=== PATIENT | female | born 1930 | race Caucasian/White ===

== ENCOUNTER 2018-12-04 10:11 | Inpatient (IN) | payer MEDICARE ==
[~2018-12-04] VITALS: Ht 167.6 cm; Wt 134.7 kg
[2018-12-04 10:11] VITALS: BP 165/84
[~2018-12-04 10:11] MED LIST: BAYER ASPIRIN325 MG PO; FUROSEMIDE40 MG PO; HYDRODIURIL25 MG PO; Synthroid,Lev150 MCG PO; ZESTRIL,PRINIVI10 MG PO
[2018-12-04 10:59] LABS: BASO # 0.1 10*3/uL (0.0-0.1); BASO % 0.7 % (0.0-1.0); EOS # 0.2 10*3/uL (0.0-0.4); EOS % 1.7 % (1.0-4.0); HEMATOCRIT 40.6 % (37.0-47.0); HEMOGLOBIN 12.4 g/dl (12.0-16.0); LYMPH # 0.8 10*3/uL (1.3-4.4); LYMPH % 8.9 % (27.0-41.0); MEAN CELL VOLUME 97.8 fl (81.0-99.0); MEAN CORPUSCULAR HGB 29.9 pg (27.0-31.0); MEAN CORPUSCULAR HGB CONC 30.5 g/dl (33.0-37.0); MEAN PLATELET VOLUME 9.4 fl (9.6-12.3); MONO # 0.6 10*3/uL (0.1-1.0); MONO % 6.7 % (3.0-9.0); NEUT # 7.3 10*3/uL (2.3-7.9); NEUT % 81.4 % (47.0-73.0); PLATELET COUNT AUTOMATED 202 10*3/uL (130-400); RED BLOOD COUNT 4.15 10*6/uL (4.10-5.10); RED CELL DISTRI WIDTH 15.8 % (0-14.5)
[2018-12-04 11:10] LABS: ACT PARTIAL THROMBO TIME 28.7 SECONDS (20.0-32.1); INTERNATIONAL NORM RATIO 1.2 (2.0-3.5)
[2018-12-04 11:16] LABS: ALBUMIN 3.1 gm/dl (3.1-4.5); ALKALINE PHOSPHATASE 61 U/L (45-117); BUN 17 mg/dl (7-24); CHLORIDE 103 mmol/L (98-107); CREATININE 0.81 mg/dL (0.55-1.02); POTASSIUM 3.8 mmol/L (3.5-5.1); SGOT/AST 12 IU/L (3-35); SGPT/ALT 16 U/L (12-78); SODIUM 138 mmol/L (136-145); TOTAL PROTEIN 7.2 gm/dL (6.4-8.2)
[2018-12-04 11:18] LABS: TROPONIN I < 0.015 ng/ml (<0.045)
[2018-12-04 12:11] VITALS: BP 106/44
--- NOTE | 2018-12-04 12:25 | NUR ---
PT RESTING IN BED WITH EYES CLOSED. IN NO ACUTE DISTRESS
--- NOTE | 2018-12-04 13:53 | NUR ---
CRITICAL LAB: [place] OF 2.2. DR ARNETT NOTIFIED
[2018-12-04 14:12] VITALS: BP 128/86
--- NOTE | 2018-12-04 16:00 | NUR ---
PT UP AND DOWN TO BEDSIDE COMMODE. OXYGEN IN USE. CALL LIGHT IN REACH. SEE SHIFT ASSESSMENT.
[2018-12-04 20:00] VITALS: BP 105/72
--- NOTE | 2018-12-04 20:17 | NUR ---
PATIENT SITTING ON SIDE OF BED. ASSISTED TO PUT LEG UP IN BED D/T UNABLE TO DO SO ON HER OWN. MEDICATED WITH NORCO FOR COMPLAINTS OF EAR PAIN. NO SIGNS OR SYMPTOMS OF DISTRESS AT THIS TIME. RESPIRATION REGULAR AND NON-LABORED ON ROOM AIR. USES BEDSIDE COMMODE WITH ASSIST. PATIENT BECOMES SHORT OF BREATH WITH EXERTION. VITAL SIGNS STABLE. WILL CONTINUE TO MONITOR. CALL LIGHT IN REACH.
[2018-12-05] VITALS: BP 143/52
[2018-12-05 06:33] LABS: BASO # 0.1 10*3/uL (0.0-0.1); BASO % 0.9 % (0.0-1.0); EOS # 0.3 10*3/uL (0.0-0.4); HEMATOCRIT 42.8 % (37.0-47.0); HEMOGLOBIN 12.8 g/dl (12.0-16.0); LYMPH # 2.2 10*3/uL (1.3-4.4); MEAN CELL VOLUME 96.6 fl (81.0-99.0); MEAN CORPUSCULAR HGB 28.9 pg (27.0-31.0); MEAN CORPUSCULAR HGB CONC 29.9 g/dl (33.0-37.0); MEAN PLATELET VOLUME 9.4 fl (9.6-12.3); MONO # 0.7 10*3/uL (0.1-1.0); MONO % 8.1 % (3.0-9.0); NEUT # 4.8 10*3/uL (2.3-7.9); NEUT % 59.1 % (47.0-73.0); PLATELET COUNT AUTOMATED 208 10*3/uL (130-400); RED BLOOD COUNT 4.43 10*6/uL (4.10-5.10); RED CELL DISTRI WIDTH 15.7 % (0-14.5); WHITE BLOOD COUNT 8.2 10*3/uL (4.8-10.8)
[2018-12-05 06:46] LABS: ALBUMIN 3.1 gm/dl (3.1-4.5); BUN 19 mg/dl (7-24); CHLORIDE 101 mmol/L (98-107); CHOLESTEROL 125 mg/dL (<200); CREATININE 0.86 mg/dL (0.55-1.02); PHOSPHOROUS 3.7 mg/dL (2.5-4.9); POTASSIUM 3.5 mmol/L (3.5-5.1); SGOT/AST 13 IU/L (3-35); SGPT/ALT 14 U/L (12-78); SODIUM 141 mmol/L (136-145); TRIGLYCERIDES 66 mg/dl (<150); VLDL CHOLESTEROL 13 mg/dL (6-40)
[2018-12-05 06:53] LABS: ALKALINE PHOSPHATASE 57 U/L (45-117); FREE T4 1.11 ng/dl (0.76-1.46); HDL CHOLESTEROL 58 mg/dl (40-60); LDL CHOLESTEROL 54 mg/dL (9-159); TOTAL PROTEIN 7.1 gm/dL (6.4-8.2)
[2018-12-05 07:42] LABS: VITAMIN D, 25-HYDROXY 25.1 ng/mL (30-100)
[2018-12-05 08:00] VITALS: BP 110/56
--- NOTE | 2018-12-05 08:28 | NUR ---
CALLED DR. HAMILTON AWARE OF CONSULT. HE WILL SEE HER LATER, FULL LIQUID DIET.
--- NOTE | 2018-12-05 08:35 | NUR ---
PT RESTING IN BED. RESP-EASY AND REGULAR. OXYGEN IN USE. NO C/O AT THIS TIME. CALL LIGHT IN REACH. SEE SHIFT ASSESSMENT.
--- NOTE | 2018-12-05 08:40 | NUR ---
IV started right forearm with #22 angiocath after 1 attempts. The IV site was prepped with Chloraprep. Heparin lock attached. Sterile dressing applied. Patient tolerated precedure well. Procedure performed according to [facility] policy & procedure. CHEPE EVANS
--- NOTE | 2018-12-05 09:05 | NUR ---
POLI FARMER IN TO SEE PT.
[2018-12-05 12:00] VITALS: BP 112/65
--- NOTE | 2018-12-05 12:23 | NUR ---
PHYSICAL THERAPY Physical therapy evaluation completed, 5E. Full details to follow. moderate complexity determined after evaluation/chart review, [address]. PT to work on strength, gait, transfers, bed mobility, balance and safety. Recommending SNF or HH at discharge based on Pt progress. Thank you Ana Zazueta, PT, DPT
--- NOTE | 2018-12-05 12:52 | NUR ---
DR. HAMILTON IN TO SEE PT. EGD FOR MONDAY
--- NOTE | 2018-12-05 13:10 | NUR ---
PT C/O NOT BEING ABLE TO MOVE HER BOWELS. MEDICATED WITH MIRALAX PER DR. HAMILTON ORDER, SEE EMAR. CALL LIGHT IN REACH.
--- NOTE | 2018-12-05 13:22 | NUR ---
Kayak Maker in to talk to patient. Patient states lives at HOME with ALONE. There are NO steps in the home. Physician: QUINTIN [facility] [place] [facility] Patient's level of ADLs: INDEPENDENT Patient has working utilities: YES DME: [facility] Follow-up physician's appointment after d/c: WILL BE MADE BY HOSPITALIST NURSE DIRECTOR ON DISCHARGE Does patient want to access PORTAL?: NO Discharge plan PT LIVES AT HOME ALONE AND IS MOSTLY INDEPENDENT IN CARE. PT IS REQUESTING [facility] ON DISCHARGE. WILL OBTAIN ORDER AND SEND REFERRAL. NO OTHER NEEDS PER PT AT THIS TIME. WILL CONTINUES TO FOLLOW. WILL HAVE A RIDE HOME PER PT. . YOLA DUNBAR
--- NOTE | 2018-12-05 14:55 | NUR ---
Occupational Therapy evaluation completed on 5 with full eval to follow. Precautions include obesity, ww use, unsteady inconsistantly (PT for tx),low complexity level 09144. Recommend d/c to home upon d/c and Home health OT for home safety assessment in the home. D/C OT referral at this time. Thank you. Sarah Edwards OTR/l
[2018-12-05 16:00] VITALS: BP 108/57
--- NOTE | 2018-12-05 16:00 | NUR ---
PT RESTING IN BED. RESP-EASY AND REGULAR. OXYGEN IN USE. NO C/O AT THIS TIME. CALL LIGHT IN REACH. SEE SHIFT ASSESSMENT.
--- NOTE | 2018-12-05 18:50 | NUR ---
Time: 1849 A 89 year old FEMALE admitted to 5E under services of ELADIO EDMONDS DO, Pt. arrived via bed from ER. Chief complaint: UTI. DEEPIKA MCKEON
--- NOTE | 2018-12-05 19:47 | NUR ---
PATIENT MEDICATED WITH NORCO FOR COMPLAINTS OF EAR PAIN. SITTING ON SIDE OF BED CONVERSING WITH ROOMMATE AT THIS TIME. RESPIRATIONS REGULAR AND NON-LABORED ON 2L N/C. GETS UP TO BEDSIDE COMMODE PER SELF. NEEDS HELP GETTING LEGS BACK INTO BED. WILL CONTINUE TO MONITOR. CALL LIGHT IN REACH.
[2018-12-05 20:00] VITALS: BP 120/86
--- NOTE | 2018-12-05 21:57 | NUR ---
PATIENT COMPLAINING OF RIGHT SIDED CHEST PAIN. B/P 113/47 ON LEG. UNABLE TO OBTAIN A MANUAL ON ARM. DR. HOUSE IN TO SEE PATIENT. NEW ORDER FOR TROPONIN, EKG AND CHEST X-RAY. WILL CONTINUE TO MONITOR.
[2018-12-06] VITALS: BP 121/65
--- NOTE | 2018-12-06 08:12 | NUR ---
PHYSICAL THERAPY Doctors in visiting with patient at this time. Will check back later. AMEENA COLIN BIOMEDICAL SERVICE ENGINEER
[2018-12-06 12:00] VITALS: BP 132/94
--- NOTE | 2018-12-06 12:48 | NUR ---
PT WILL BE DISCHARGED TO HOME WITH [facility]. NO OTHER NEEDS AT THIS TIME. WILL CONTINUE TO FOLLOW.
--- NOTE | 2018-12-06 13:01 | NUR ---
Nursing screen received and Occupational Therapy referral received. Thank you. Sarah Edwards OTR/l
--- NOTE | 2018-12-06 15:08 | NUR ---
PHYSICAL THERAPY Patient presented to therapy in supine with head of bed elevated and bed alarm activated. Patient gives informed consent for treatment. Patient was identified by name and on wristband. Patient performed supine to sitting at EOB transfer with SBA. Patient sat on EOB without assistance. Patient performed sit to stand transfer from EOB with MIN A X 1. Patient performed ambulation with Wh Walker and Close Supervision 50' x 2 with seated rest after the 1st 50'. Patient SIT TO STAND from low chair with SBA using hands to push off of chair armrests. Patient performed TUG TEST in 36 seconds with use of UEs to push off of chair. Patient performed 30 second sit to stand test with results recorded as 1st attempt) 6 Xs sit to stands in 30 seconds with use of UEs to push off of armrests of chair. 2nd attempt) 5 Xs sit to stands in 30 seconds , also with use of UEs to push off of armrests of chair. Patient transferred back to supine in bed with SBA. Patient was NOT able to move herself up to head of bed, so she transferred supine to sit and sit to stand again with SBA. Patient side-stepped up to head of bed with HEAD BUCKER and then transferred stand to sit to supine in bed with SBA. Patient was left in supine with head of bed elevated, call light within reach, and bed alarm activated. Patient was 1:1 with this ENVIRONMENTAL HEALTH INSPECTOR for 20 minutes total. AMEENA COLIN ENVIRONMENTAL HEALTH INSPECTOR
[2018-12-06 16:00] VITALS: BP 105/70
--- NOTE | 2018-12-06 19:39 | NUR ---
PATIENT MEDICATED WITH PRN NORCO PER ORDER FOR C/O 08/15 PAIN TO HER RIGHT EAR AND JAW. WILL MONITOR FOR EFFECTIVENESS
--- NOTE | 2018-12-06 19:50 | NUR ---
PATIENT ASSISTED TO CHAIR. RESPIRATIONS EVEN AND UNLABORED. NO OTHER COMPLAINTS AT THIS TIME.
[2018-12-06 20:00] VITALS: BP 104/78
--- NOTE | 2018-12-06 20:50 | NUR ---
SPOKE TO DR. CARRILLO ABOUT PATIENT BEING MEDICATED WITH NORCO BUT PATIENT STILL C/O SEVERE PAIN IN HER RIGHT EAR AN HOUR LATER.
--- NOTE | 2018-12-06 21:32 | NUR ---
PATIENT MEDICATED WITH PO TORADOL PER ORDER FOR C/O SEVERE RIGHT EAR PAIN. WILL MONITOR FOR EFFECTIVENESS. CALL LIGHT WITHIN REACH.
--- NOTE | 2018-12-06 22:00 | NUR ---
PER PATIENT PRN PO TORADOL HELPED WITH HER PAIN.
--- NOTE | 2018-12-06 23:42 | NUR ---
PATIENT MEDICATED WITH PRN PO NORCO PER ORDER FOR C/O 5/10 PAIN IN HER RIGHT EAR AND RIGHT SIDE OF HER FACE. CALL LIGHT WITHIN REACH. WILL MONITOR FOR EFFECTIVENESS.
[2018-12-07] VITALS (9 sets, daily range): BP systolic 85–150; BP diastolic 40–82
--- NOTE | 2018-12-07 00:30 | NUR ---
PER PATIENT PRN NORCO EFFECTIVE PER PATIENT.
--- NOTE | 2018-12-07 01:42 | NUR ---
24 HR chart check completed.
--- NOTE | 2018-12-07 05:52 | NUR ---
ATTEMPTED TO CALL RESIDENT ABOUT PATIENT FEELING LIGHT HEADED LIKE SHE IS GOING TO PASS OUT. BP 84/50. WILL TRY AGAIN.
--- NOTE | 2018-12-07 06:00 | NUR ---
DR. HOUSE ON FLOOR TO SEE PATIENT. 500 ML IV FLUID BOLUS ORDERED THEN NS @ 100 ML/HR.
--- NOTE | 2018-12-07 06:32 | NUR ---
PATIENT STATED SHE IS STARTING TO FEEL BETTER. CALL LIGHT WITHIN REACH.
[2018-12-07 06:50] LABS: CREATININE 1.18 mg/dL (0.55-1.02)
[2018-12-07 07:00] LABS: BASO % 0.5 % (0.0-1.0); EOS # 0.2 10*3/uL (0.0-0.4); HEMATOCRIT 41.1 % (37.0-47.0); HEMOGLOBIN 12.8 g/dl (12.0-16.0); LYMPH # 2.1 10*3/uL (1.3-4.4); LYMPH % 26.7 % (27.0-41.0); MEAN CELL VOLUME 95.1 fl (81.0-99.0); MEAN CORPUSCULAR HGB 29.6 pg (27.0-31.0); MEAN CORPUSCULAR HGB CONC 31.1 g/dl (33.0-37.0); MEAN PLATELET VOLUME 9.7 fl (9.6-12.3); MONO # 0.6 10*3/uL (0.1-1.0); MONO % 8.3 % (3.0-9.0); NEUT # 4.6 10*3/uL (2.3-7.9); NEUT % 60.5 % (47.0-73.0); PLATELET COUNT AUTOMATED 217 10*3/uL (130-400); RED BLOOD COUNT 4.32 10*6/uL (4.10-5.10); RED CELL DISTRI WIDTH 15.4 % (0-14.5); WHITE BLOOD COUNT 7.7 10*3/uL (4.8-10.8)
--- NOTE | 2018-12-07 10:30 | NUR ---
10:00 AM MEDSA TO BE GIVEN AT A LATER TIME, NPO AT PRESENT.
--- NOTE | 2018-12-07 12:10 | NUR ---
[facility]ERR[facility].
--- NOTE | 2018-12-07 15:19 | NUR ---
AMERICA received call from patients niece Camelia Francisco. She provided WATER RESOURCES PROJECT MANAGER with Patient code. She had concerns with the patient going home with insulin. WATER RESOURCES PROJECT MANAGER spoke with Portia who stated she did not think the patient would be going home with insulin. WATER RESOURCES PROJECT MANAGER spoke with estate agent Luna about the concern. Luna reached out to Jaylene Rios who stated the patient would not be discharged with insulin. WATER RESOURCES PROJECT MANAGER attempted to reach out to the patients niece there is no number in chart. WATER RESOURCES PROJECT MANAGER spoke with Portia about not being able to reach her. -AMERICA Alejo
--- NOTE | 2018-12-07 16:05 | NUR ---
PHYSICAL THERAPY CO-SIGN I approve of the Physical Therapy notes written above. Ana Zazueta, PT, DPT
--- NOTE | 2018-12-07 19:45 | NUR ---
PATIENT MEDICATED WITH PRN NORCO PER REQUEST FOR C/O 10/10 PAIN IN HER RIGHT EAR. WILL MONITOR FOR EFFECTIVENESS.
--- NOTE | 2018-12-07 20:20 | NUR ---
PER PATIENT PRN NORCO EFFECTIVE.
[2018-12-08] VITALS: BP 114/62
--- NOTE | 2018-12-08 00:50 | NUR ---
PATIENT ASLEEP IN RECLINING CHAIR. RESPIRATIONS EVEN AND UNLABORED. CALL LIGHT WITHIN REACH.
--- NOTE | 2018-12-08 01:46 | NUR ---
24 HR chart check completed.
--- NOTE | 2018-12-08 03:40 | NUR ---
PATIENT ASSISTED TO BEDSIDE COMMODE. HR 120-130S WHILE AMBULATING. PATIENT ASSISTED BACK TO BED AND ONCE SITTING HR RETURNED TO 90S. NO OTHER COMPLAINTS AT THIS TIME. CALL LIGHT WITHIN REACH.
--- NOTE | 2018-12-08 06:35 | NUR ---
PATIENT ASSISTED TO BEDSIDE COMMODE AND BACK TO BED. PATIENT MEDICATED WITH PRN NORCO FOR 4/10 PAIN TO HER RIGHT EAR/FACE. WILL MONITOR FOR EFFECTIVENESS.
--- NOTE | 2018-12-08 07:28 | NUR ---
PATIENT MEDICATED WITH PRN ZOFRAN FOR NAUSEA. WILL MONITOR FOR EFFECTIVENESS.
[2018-12-08 08:00] VITALS: BP 106/67
[2018-12-08 08:31] LABS: ALKALINE PHOSPHATASE 111 U/L (45-117); BUN 25 mg/dl (7-24); CHLORIDE 98 mmol/L (98-107); CREATININE 0.85 mg/dL (0.55-1.02); POTASSIUM 3.7 mmol/L (3.5-5.1); SGOT/AST 313 IU/L (3-35); SGPT/ALT 262 U/L (12-78); SODIUM 138 mmol/L (136-145); TOTAL PROTEIN 7.2 gm/dL (6.4-8.2)
--- NOTE | 2018-12-08 09:14 | NUR ---
HELD LISINOPRIL THIS AM FOR BP 106/67. PATIENT FOR CT ABDOMEN D/T ELEVATED LIVER ENZYMES, PER ELISA FARMER.
--- NOTE | 2018-12-08 10:25 | NUR ---
PATIENT REPORTS LIGHT-HEADEDNESS, SHAKINESS, AND ABDOMINAL PAIN RATED 6/10 ON PAIN SCALE. O2 2L NC NOT SECURELY ATTACHED TO SOURCE. CT ABDOMEN IS ORDERED FOR THIS MORNING. PATIENT DENIES NAUSEA, STATES HAD EPISODE OF NAUSEA EARLIER THIS MORNING, BUT THIS HAS NOT HAPPENED AGAIN SINCE RECEIVING ZOFRAN IV AT 0730.
[2018-12-08 12:00] VITALS: BP 93/53
--- NOTE | 2018-12-08 12:44 | NUR ---
PHYSICAL THERAPY Patient up "furniture" walking once DRY TRANSFER MAN entered room. DRY TRANSFER MAN educated patient on importance of use with FWW and assistance prior to transferring onto bedside commode. Transfer training: Pt performed STS/SPT transfer with use of FWW and SBA to/from bedside commode. Multiple sit<>stand transfers performed from various surfaces (bed, recliner) requiring SBA. Patient benefits from cues for pacing, obstacle/spatial awareness and safety with walker proximity/management during transfers. Patient exhibits impulsiveness with walker and tends to push walker out of way prior to sitting on surfaces. Pt performed gait training with use of FWW and SBA/S, as well as assistance for manipulation of portable O2 tank- for strength, endurance and balance ~120'x1, incorporating 180 degree directional changes- with emphasis on environmental safety and breathing techniques- pt on 2L continous O2 Via NC. Patient provided cues for safety with walker management/proximity and pacing. Pt performed standing B LE ther-ex, for strength, endurance and balance with 2xUE support on FWW and SBA- marches, hip ext/flex, heel raises x 10 reps. Intermittent rest breaks provided. Cues and supervision for technique and progression of exercises. Patient voiced no c/o's this date. Patient seated in bedside chair with call light within reach at session end. Leda Whitlock PTA.
--- NOTE | 2018-12-08 13:36 | NUR ---
DR. HAMILTON NOTIFIED OF CT ABDOMEN RESULT FROM TODAY, OBTAINED ORDER FOR CBC, AMYLASE, LIPASE CALL RESULT.
--- NOTE | 2018-12-08 13:46 | NUR ---
MEDICATED WITH PRN PO NORCO AND IV ZOFRAN FOR ABDOMINAL PAIN AND NAUSEA.
[2018-12-08 13:58] LABS: BASO # 0.1 10*3/uL (0.0-0.1); BASO % 0.7 % (0.0-1.0); EOS # 0.2 10*3/uL (0.0-0.4); EOS % 2.8 % (1.0-4.0); HEMATOCRIT 42.5 % (37.0-47.0); HEMOGLOBIN 13.1 g/dl (12.0-16.0); LYMPH % 13.5 % (27.0-41.0); MEAN CELL VOLUME 96.8 fl (81.0-99.0); MEAN CORPUSCULAR HGB 29.8 pg (27.0-31.0); MEAN CORPUSCULAR HGB CONC 30.8 g/dl (33.0-37.0); MEAN PLATELET VOLUME 9.4 fl (9.6-12.3); MONO # 0.6 10*3/uL (0.1-1.0); MONO % 8.6 % (3.0-9.0); NEUT # 5.3 10*3/uL (2.3-7.9); NEUT % 73.7 % (47.0-73.0); PLATELET COUNT AUTOMATED 211 10*3/uL (130-400); RED BLOOD COUNT 4.39 10*6/uL (4.10-5.10); RED CELL DISTRI WIDTH 15.7 % (0-14.5); WHITE BLOOD COUNT 7.2 10*3/uL (4.8-10.8)
[2018-12-08 14:13] LABS: LIPASE 45 U/L (73-393)
--- NOTE | 2018-12-08 14:51 | NUR ---
STAT BLOODWORK RESULTS CALLED TO DR. HAMILTON, OBTAINED ORDER FOR CBC AND LACTIC ACID IN THE MORNING, CALL RESULTS.
[2018-12-08 16:00] VITALS: BP 85/46
--- NOTE | 2018-12-08 16:16 | NUR ---
DR. PRESSLEY NOTIFIED OF PATIENT BP 82/40 AND THEN 85/46 WITH DIFFERENT BP CUFF. PATIENT WAS DROWSY AND O2 2L NC WAS OFF, POX 90% ROOM AIR. WAS PLACED BACK ON 2L NC, DR. PRESSLEY ORDERED ABG, THEN IN TO SEE PATIENT. PER PATIENT SHE IS FEELING BETTER AT PRESENT TIME, NAUSEA AND ABDOMINAL PAIN HAS SUBSIDED, LAST HAD THESE SYMPTOMS ABOUT AN HOUR AGO, HAS HAD INTERMITTENT PERIODS OF LIGHT-HEADEDNESS WHICH IMPROVES WITH CLOSING HER EYES. PER PATIENT NORCO AND ZOFRAN WERE EFFECTIVE EARLIER. RESPIRATORY THERAPIST IS DRAWING ABG'S.
[2018-12-08 16:22] LABS: ABG BASE EXCESS 8.1 mmol/L (-2.0-2.0); ABG HCO3 33.8 mmol/l (22-26); ARTERIAL BLOOD GAS PCO2 50.3 mmHg (35-45); ARTERIAL BLOOD GAS PH 7.436 (7.35-7.45); ARTERIAL BLOOD GAS PO2 82.4 mmHg (80-90)
--- NOTE | 2018-12-08 19:10 | NUR ---
ARRIVED ON SHIFT, INTRODUCED TO PATIENT, BEDSIDE REPORT RECEIVED, NO NEEDS VOICED AT THIS TIME. WHITE BOARD UPDATED.
[2018-12-08 20:00] VITALS: BP 97/66
--- NOTE | 2018-12-08 20:30 | NUR ---
24 HR chart check completed.
[2018-12-09] VITALS: BP 89/56
--- NOTE | 2018-12-09 02:00 | NUR ---
Patient sleeping. Respirations relaxed and easy. Siderails up X 2. [place] on, BED IN LOW POSITION, CALL LIGHT WITHIN REACH. CINDY LOWERY
[2018-12-09 06:14] LABS: BASO # 0.1 10*3/uL (0.0-0.1); EOS # 0.2 10*3/uL (0.0-0.4); EOS % 3.4 % (1.0-4.0); HEMATOCRIT 43.7 % (37.0-47.0); HEMOGLOBIN 13.1 g/dl (12.0-16.0); LYMPH # 1.7 10*3/uL (1.3-4.4); LYMPH % 24.1 % (27.0-41.0); MEAN CELL VOLUME 97.1 fl (81.0-99.0); MEAN CORPUSCULAR HGB 29.1 pg (27.0-31.0); MEAN PLATELET VOLUME 9.7 fl (9.6-12.3); MONO # 0.6 10*3/uL (0.1-1.0); MONO % 8.5 % (3.0-9.0); NEUT # 4.4 10*3/uL (2.3-7.9); NEUT % 62.3 % (47.0-73.0); PLATELET COUNT AUTOMATED 220 10*3/uL (130-400); RED CELL DISTRI WIDTH 15.8 % (0-14.5)
[2018-12-09 06:35] LABS: ALBUMIN 3.2 gm/dl (3.1-4.5); BILIRUBIN, DIRECT 0.4 mg/dL (0.0-0.2); TOTAL PROTEIN 7.5 gm/dL (6.4-8.2)
--- NOTE | 2018-12-09 06:59 | NUR ---
CALL PLACED TO DR. HAMILTON PER IMSTRUCTIONS REVIEWED CBC AND LACTIC ACID LEVEL WELL HIS FINDINGS ON 12/07/2018 ORDER RECEIVED FOR BLAND DIET.
[2018-12-09 08:00] VITALS: BP 101/61
[2018-12-09 12:00] VITALS: BP 93/46
--- NOTE | 2018-12-09 14:58 | NUR ---
MEDICATED WITH PRN IV ZOFRAN FOR NAUSEA.
[2018-12-09 16:00] VITALS: BP 99/69
--- NOTE | 2018-12-09 17:15 | NUR ---
PATIENT STATES FEELING BETTER, LESS NAUSEATED.
--- NOTE | 2018-12-09 19:10 | NUR ---
ARRIVED ON SHIFT, PATIENT SITTING IN RECLINER, REOPORT RECEIVED, NO NEEDS VOICED AT THIS TIME
[2018-12-09 20:00] VITALS: BP 125/74
--- NOTE | 2018-12-09 22:37 | NUR ---
24 HR chart check completed.
[2018-12-10] VITALS (7 sets, daily range): BP systolic 82–128; BP diastolic 42–76
--- NOTE | 2018-12-10 04:23 | NUR ---
Patient sleeping. Respirations relaxed and easy. PATIENT SLEEPING IN RECLINER, CALL LIGHT WITHIN REACH. CINDY LOWERY
[2018-12-10 07:25] LABS: BASO # 0.1 10*3/uL (0.0-0.1); BASO % 0.8 % (0.0-1.0); EOS # 0.3 10*3/uL (0.0-0.4); EOS % 3.3 % (1.0-4.0); HEMATOCRIT 41.8 % (37.0-47.0); HEMOGLOBIN 12.7 g/dl (12.0-16.0); LYMPH # 2.2 10*3/uL (1.3-4.4); LYMPH % 25.6 % (27.0-41.0); MEAN CELL VOLUME 97.2 fl (81.0-99.0); MEAN CORPUSCULAR HGB 29.5 pg (27.0-31.0); MEAN CORPUSCULAR HGB CONC 30.4 g/dl (33.0-37.0); MEAN PLATELET VOLUME 9.5 fl (9.6-12.3); MONO # 0.8 10*3/uL (0.1-1.0); MONO % 9.5 % (3.0-9.0); NEUT # 5.2 10*3/uL (2.3-7.9); NEUT % 60.1 % (47.0-73.0); PLATELET COUNT AUTOMATED 190 10*3/uL (130-400); RED CELL DISTRI WIDTH 15.4 % (0-14.5); WHITE BLOOD COUNT 8.6 10*3/uL (4.8-10.8)
[2018-12-10 07:43] LABS: ALBUMIN 3.2 gm/dl (3.1-4.5); ALKALINE PHOSPHATASE 90 U/L (45-117); BUN 22 mg/dl (7-24); CHLORIDE 98 mmol/L (98-107); CREATININE 0.86 mg/dL (0.55-1.02); POTASSIUM 3.3 mmol/L (3.5-5.1); SGOT/AST 69 IU/L (3-35); SGPT/ALT 141 U/L (12-78); SODIUM 138 mmol/L (136-145); TOTAL PROTEIN 7.4 gm/dL (6.4-8.2)
--- NOTE | 2018-12-10 08:29 | NUR ---
PT UP IN BED. NO DISTRESS NOTED. RESPIRATIONS EASY, REGULAR ON RA. DENIES ANY SOB. DENIES ANY PAIN/DISCOMFORT AT THIS TIME. WILL CONTINUE TO MONITOR. NO VOICED COMPLAINTS. CALL LIGHT WITHIN REACH.
[2018-12-10] MEDS ORDERED: XARE20MG PO (10:52)
[2018-12-10] MEDS ORDERED: VITAMIN D32000 UNI1 PO (10:52)
[2018-12-10] MEDS ORDERED: METOPROLOL SUCC25 M2 PO (10:52)
[2018-12-10] MEDS ORDERED: ZITHROMAX500 MG PO (10:52)
[2018-12-10] MEDS ORDERED: PREDNISONE10 MG PO (10:52)
[2018-12-10] MEDS ORDERED: PANTOPRAZOLE SO40 MG PO (10:52)
[2018-12-10] MEDS ORDERED: CARBAMAZEPINE100 MG PO (10:52)
[2018-12-10] MEDS ORDERED: FUROSEMIDE40 MG PO (10:52)
--- NOTE | 2018-12-10 11:35 | NUR ---
PT C/O BEING LIGHT-HEADED AND DIZZINESS. POLI FARMER NOTIFIED AT THIS TIME. BP 82/42. NEW ORDERS RECEIVED.
--- NOTE | 2018-12-10 11:35 | NUR ---
PT C/O FEELING LIGHT-HEADED AND DIZZY. BP OBTAINED. BP 82/48. POLI FARMER NOTIFIED AT THIS TIME. NEW ORDERS RECEIVED.
[2018-12-10] MEDS ORDERED: LASIX20 MG PO (11:39)
--- NOTE | 2018-12-10 11:45 | NUR ---
CALLED TO [phone] PER PT. REQUEST. PT. STATES SHE IS DIZZY AND LIGHTHEADED. REQUESTED O2. SAT 94 ON R/A. NOTIFIED RN. RN WITH PT. AT BEDSIDE, CHECKING B/P. DISCHARGE IS HELD AT THIS TIME. WILL ASSESS FOR O2 PRIOR TO DISCHARGE.
--- NOTE | 2018-12-10 11:46 | NUR ---
IV BOLUS 500CC INITIATED AT THIS TIME PER ORDER.
--- NOTE | 2018-12-10 12:29 | NUR ---
BP NOW 98/58. WILL CONTINUE TO MONITOR. IV BOLUS MAINTAINED. CALL LIGHT WITHIN REACH.
--- NOTE | 2018-12-10 12:40 | NUR ---
POLI FARMER NOTIFIED REGARDING MOST RECENT BP.
--- NOTE | 2018-12-10 13:05 | NUR ---
PHYSICAL THERAPY Patient seen this pm 1:1 for therapy visit and was sitting up on EOB upon therapist arrival. Patient identified by name / and presented with continuos IV treatment. Patient stated she had just returned from the bathroom prior to IV and did not feel like getting up so soon again. Patient agreed to and performed seated B LE therex, all planes, 2 x 10 reps each to increased LE strength. Patient tolerated all treatment voicing no new c/o's and remained EOB sit with call light, tray table, and telephone. Will continue per POC as tolerated, total treatment time 14 minutes. Emeka Monterroso, DATA WAREHOUSE ANALYST
--- NOTE | 2018-12-10 13:46 | NUR ---
PT STATES SHE WILL RETURN HOME WITH NO NEEDS ON DISCHARGE. WILL CONTINUE TO FOLLOW.
--- NOTE | 2018-12-10 15:36 | NUR ---
PT MEDICATED WITH IV ZOFRAN PER PRN ORDER FOR C/O NAUSEA. WILL MONITOR EFFECTIVENESS.
--- NOTE | 2018-12-10 21:19 | NUR ---
PATIENT MEDICATED WITH NORCO FOR COMPLAINTS OF GENERALIZED PAIN ALL OVER. VITAL SIGNS STABLE. RESPIRATIONS REGULAR AND NON-LABORED. NO SIGNS OR SYMPTOMS OF DISTRESS NOTED. WILL CONTINUE TO MONITOR. CALL LIGHT IN REACH.
--- NOTE | 2018-12-11 01:11 | NUR ---
24 HR chart check completed.
[2018-12-11 01:17] VITALS: BP 115/81
[2018-12-11 07:52] LABS: BASO # 0.1 10*3/uL (0.0-0.1); BASO % 0.7 % (0.0-1.0); EOS # 0.3 10*3/uL (0.0-0.4); EOS % 3.4 % (1.0-4.0); HEMATOCRIT 40.1 % (37.0-47.0); HEMOGLOBIN 12.4 g/dl (12.0-16.0); LYMPH % 23.6 % (27.0-41.0); MEAN CELL VOLUME 96.9 fl (81.0-99.0); MEAN CORPUSCULAR HGB CONC 30.9 g/dl (33.0-37.0); MEAN PLATELET VOLUME 9.4 fl (9.6-12.3); MONO # 0.8 10*3/uL (0.1-1.0); MONO % 9.1 % (3.0-9.0); NEUT # 5.3 10*3/uL (2.3-7.9); NEUT % 62.5 % (47.0-73.0); PLATELET COUNT AUTOMATED 176 10*3/uL (130-400); RED BLOOD COUNT 4.14 10*6/uL (4.10-5.10); RED CELL DISTRI WIDTH 15.6 % (0-14.5); WHITE BLOOD COUNT 8.5 10*3/uL (4.8-10.8)
[2018-12-11 08:00] VITALS: BP 112/80
[2018-12-11 08:07] LABS: ALBUMIN 3.1 gm/dl (3.1-4.5); ALKALINE PHOSPHATASE 82 U/L (45-117); BUN 23 mg/dl (7-24); CHLORIDE 98 mmol/L (98-107); CREATININE 0.83 mg/dL (0.55-1.02); POTASSIUM 3.5 mmol/L (3.5-5.1); SGOT/AST 38 IU/L (3-35); SGPT/ALT 104 U/L (12-78); SODIUM 139 mmol/L (136-145)
--- NOTE | 2018-12-11 08:41 | NUR ---
PHYSICAL THERAPY Abdi nguyen she just came back from a walk with respirtory and would like therapy to come back later in morning. Will check back later. AMEENA COLIN DISTRICT RECRUITER
--- NOTE | 2018-12-11 08:49 | NUR ---
pt was assessed for home oxygen. pt did not qualify pt at rest spo2 96% ra, hr 89, rr 18, b/p 115/81 pt ambulated spo2 94-98% ra pt at rest spo2 98% ra, hr 107, rr 18, b/p 146/109 rn notified and notified
[2018-12-11 12:00] VITALS: BP 117/74
--- NOTE | 2018-12-11 13:55 | NUR ---
Discharge instructions reviewed with patient/family. Patient receptive and verbalizes understanding. Follow-up care arranged. Written instructions given to patient/family. IV site and monitoring coordinator removed. Pt transported to pharmacy via wheelchair. ANTHONY LOPEZ
--- NOTE | 2018-12-12 08:04 | NUR ---
PHYSICAL THERAPY CO-SIGN I approve of the Physical Therapy notes written above. Ana Zazueta, PT, DPT
[2018-12-12] MEDS ORDERED: MIRALAX POWDER17 G1 PO (13:25)
== END 2018-12-11 13:55 | disposition home or self-care (01) | DRG 871 ==
LOC: ED 10:11 → EDHOLD 13:37 → 5E 13:37
PROVIDERS: Emergency Medicine; Internal Medicine; Internal Medicine Gastroenterology; Registered Nurse; Student in an Organized Health Care Education/Training Program; ADMIT Internal Medicine
PROC: 0DB68ZX Excision of Stomach, Via Natural or Artificial Opening Endoscopic, Diagnostic (ICD-10-PCS; principal; 2018-12-07)
DX: A41.9 Sepsis, unspecified organism (principal); I50.33 Acute on chronic diastolic (congestive) heart failure; N17.0 Acute kidney failure with tubular necrosis; E87.2 Acidosis; E44.0 Moderate protein-calorie malnutrition; J98.11 Atelectasis; Z68.42 Body mass index [BMI] 45.0-49.9, adult; R65.20 Severe sepsis without septic shock; M19.90 Unspecified osteoarthritis, unspecified site; Z96.659 Presence of unspecified artificial knee joint; I11.0 Hypertensive heart disease with heart failure; H66.91 Otitis media, unspecified, right ear; G50.0 Trigeminal neuralgia; D72.810 Lymphocytopenia; E03.9 Hypothyroidism, unspecified; E11.65 Type 2 diabetes mellitus with hyperglycemia; I48.21 Permanent atrial fibrillation; E55.9 Vitamin D deficiency, unspecified; R74.0 Nonspecific elevation of levels of transaminase and lactic acid dehydrogenase [LDH]; E66.01 Morbid (severe) obesity due to excess calories; I27.20 Pulmonary hypertension, unspecified; I48.20 Chronic atrial fibrillation, unspecified; I25.10 Atherosclerotic heart disease of native coronary artery without angina pectoris; I08.1 Rheumatic disorders of both mitral and tricuspid valves; K22.2 Esophageal obstruction; K44.9 Diaphragmatic hernia without obstruction or gangrene; K29.70 Gastritis, unspecified, without bleeding; K25.9 Gastric ulcer, unspecified as acute or chronic, without hemorrhage or perforation; I95.9 Hypotension, unspecified; K76.0 Fatty (change of) liver, not elsewhere classified; Z98.49 Cataract extraction status, unspecified eye; Z79.52 Long term (current) use of systemic steroids; Z90.49 Acquired absence of other specified parts of digestive tract; Z88.6 Allergy status to analgesic agent; Z79.82 Long term (current) use of aspirin; Z79.899 Other long term (current) drug therapy; Z82.49 Family history of ischemic heart disease and other diseases of the circulatory system; Z80.8 Family history of malignant neoplasm of other organs or systems

== ENCOUNTER 2018-12-12 10:52 | Emergency (ER) | payer MEDICARE ==
[~2018-12-12] VITALS: Ht 167.6 cm; Wt 87.1 kg
[~2018-12-12 10:52] MED LIST changes: +CARBAMAZEPINE100 MG PO; +LASIX20 MG PO; +METOPROLOL SUCC25 M2 PO; +PANTOPRAZOLE SO40 MG PO; +PREDNISONE10 MG PO; +VITAMIN D32000 UNI1 PO; +XARE20MG PO; +ZITHROMAX500 MG PO
[2018-12-12] MEDS ORDERED: MIRALAX POWDER17 G1 PO (13:25)
== END 2018-12-12 13:27 | disposition home or self-care (01) ==
LOC: ED 10:52
DX: K59.00 Constipation, unspecified (principal); M79.89 Other specified soft tissue disorders; H92.01 Otalgia, right ear; E66.9 Obesity, unspecified; E03.9 Hypothyroidism, unspecified; I48.91 Unspecified atrial fibrillation; I11.0 Hypertensive heart disease with heart failure; I50.9 Heart failure, unspecified; E11.9 Type 2 diabetes mellitus without complications; Z88.5 Allergy status to narcotic agent; Z79.899 Other long term (current) drug therapy; Z79.2 Long term (current) use of antibiotics; Z79.82 Long term (current) use of aspirin; Z90.49 Acquired absence of other specified parts of digestive tract

== ENCOUNTER 2019-03-16 18:38 | Inpatient (IN) | payer MEDICARE ==
[~2019-03-16] VITALS: Ht 167.6 cm; Wt 129.8 kg
[2019-03-16] VITALS (37 sets, daily range): BP systolic 56–176; BP diastolic 11–136
[~2019-03-16 18:38] MED LIST changes: +MIRALAX POWDER17 G1 PO
--- NOTE | 2019-03-16 19:09 | NUR ---
pt anxious and trying to take mask off. will check with provider for medication to calm pt down.
[2019-03-16 19:20] LABS: BASO % 0.4 % (0.0-1.0); EOS # 0.3 10*3/uL (0.0-0.4); EOS % 2.8 % (1.0-4.0); HEMATOCRIT 45.9 % (37.0-47.0); HEMOGLOBIN 14.2 g/dl (12.0-16.0); LYMPH # 1.9 10*3/uL (1.3-4.4); LYMPH % 18.6 % (27.0-41.0); MEAN CELL VOLUME 93.9 fl (81.0-99.0); MEAN CORPUSCULAR HGB CONC 30.9 g/dl (33.0-37.0); MEAN PLATELET VOLUME 9.3 fl (9.6-12.3); MONO # 0.5 10*3/uL (0.1-1.0); NEUT # 7.4 10*3/uL (2.3-7.9); NEUT % 72.7 % (47.0-73.0); PLATELET COUNT AUTOMATED 222 10*3/uL (130-400); RED BLOOD COUNT 4.89 10*6/uL (4.10-5.10); RED CELL DISTRI WIDTH 15.1 % (0-14.5); WHITE BLOOD COUNT 10.2 10*3/uL (4.8-10.8)
[2019-03-16 19:36] LABS: ALBUMIN 3.3 gm/dl (3.1-4.5); ALKALINE PHOSPHATASE 107 U/L (45-117); BUN 13 mg/dl (7-24); CHLORIDE 104 mmol/L (98-107); CREATININE 0.83 mg/dL (0.55-1.02); POTASSIUM 3.9 mmol/L (3.5-5.1); SGOT/AST 22 IU/L (3-35); SGPT/ALT 20 U/L (12-78); SODIUM 138 mmol/L (136-145); TOTAL PROTEIN 7.9 gm/dL (6.4-8.2)
[2019-03-16 19:42] LABS: TROPONIN I < 0.015 ng/ml (<0.045)
--- NOTE | 2019-03-16 19:50 | NUR ---
PT MEDICATED WITH 20MG AMTOMIDATE AT 1948, 100MG SUCCS ALSO GIVEN AT THIS TIME. PT INTUBATED AT 1951. 7.5 ETT 21 AT THE LIP. 99% PULSE OX AFTER INTUBATION. NCO2 POSITIVE. LIPSCOMB CATHETER INSERTED AT 2109, OG TUBE PLACED AT 2149.
--- NOTE | 2019-03-16 19:50 | NUR ---
100MG. SUCCS ADMIN AT THIS TIME
--- NOTE | 2019-03-16 20:13 | NUR ---
PROPOFOL TITRATED TO 10MC/KG/MIN AT THIS TIME FOR RESTLESSNESS
[2019-03-16 20:15] LABS: ABG BASE EXCESS 0.2 mmol/L (-2.0-2.0); ARTERIAL BLOOD GAS PH 7.278 (7.35-7.45)
--- NOTE | 2019-03-16 20:51 | NUR ---
PROPOFOL TITRATED DOWN TO 5MCG/KG/MIN AT THIS TIME FOR BP AND MAP DECREASING.
--- NOTE | 2019-03-16 20:57 | NUR ---
PROPOFOL HELD AT THIS TIME. PT BP 50s/11 MAP, 32. DR NORTH MADE AWARE
--- NOTE | 2019-03-16 21:10 | NUR ---
LIPSCOMB CATHETER INSERTED AT THIS TIME. 16 FR. DRAINED SMALL AMOUT OF YELLOW URINE
--- NOTE | 2019-03-16 21:34 | NUR ---
PROPOFOL RESTARTED AT 2.5MCG/KG/ MIN- PT STARTING TO FIGHT ETT. PT BP 114/81.
--- NOTE | 2019-03-16 21:40 | NUR ---
PROPOFOL TITRATED TO 5MCG/KG/MIN AT THIS TIME FOR PT STILL FIGHTING ETT.
--- NOTE | 2019-03-16 22:10 | NUR ---
PROPOFOL TITRATED TO 7.5 MCG,KG,MIN FOR STILL RESTLESSNESS WITH ETT POST CT
--- NOTE | 2019-03-16 22:15 | NUR ---
A 88, admitted to ICCU, under the services of ERICKSON Silver DO with a diagnosis of ac respiratory failure, hypoxemia,acute pulmonary edema, and afib RVR. Chief complaint is SHORTNESS OF BREATH AND PAIN. Patient arrived via stretcher from ER. Monitor applied. Initial assessment completed. Vital signs taken and recorded. ERICKSON SILVER DO notified of admission to the unit. Orders received. See assessment for past medical history, medications and allergies. Patient and/or family oriented to unit. [facility] ICCU visitation policy reviewed. Clothing/patient valuable form completed. NICKO SIERRA
[2019-03-16] MEDS ORDERED: PREDNISONE5 MG PO (22:33)
[2019-03-16] MEDS ORDERED: ASPIRIN ADULT L81 M1 PO (22:34)
[2019-03-16] MEDS ORDERED: SYMB160 INH (22:35)
[2019-03-16] MEDS ORDERED: LASIX20 MG PO (22:37)
[2019-03-16 22:39] LABS: ABG BASE EXCESS 2.4 mmol/L (-2.0-2.0); ARTERIAL BLOOD GAS PH 7.42 (7.35-7.45)
[2019-03-16 22:43] LABS: COLOR YELLOW (YELLOW)
[2019-03-16 22:44] LABS: BILIRUBIN NEGATIVE (NEGATIVE); BLOOD 3+ (NEGATIVE); CLARITY SL CLOUDY (CLEAR); GLUCOSE NEGATIVE (NEGATIVE); KETONE NEGATIVE (NEGATIVE); LEUKO ESTERASE TRACE (NEGATIVE); NITRITE POSITIVE (NEGATIVE); PH 5.5 (5.0-9.0); UROBILINOGEN 0.2 E.U./dl (0.2-1.0)
--- NOTE | 2019-03-16 22:45 | NUR ---
ER DEPT NOTIFIED OF NEED TO STAGE AND DOCUMENT RT ELBOW WOUND THAT WAS NOTED WHEN ER NURSE BROUGHT PT TO ICU.
[2019-03-16 22:46] LABS: BACTERIA 3+; WBC 31-40 wbc/hpf (0-5)
--- NOTE | 2019-03-16 23:00 | NUR ---
PROPOFOL DC'D FOR HYPOTENSION.
--- NOTE | 2019-03-16 23:03 | NUR ---
DR LIAO NOTIFIED OF VS.
--- NOTE | 2019-03-16 23:31 | NUR ---
DR SMITH NOTIFIED OF CONSULT. ORDERS RECEIVED.
[2019-03-17] VITALS (67 sets, daily range): BP systolic 52–143; BP diastolic 33–87
--- NOTE | 2019-03-17 00:05 | NUR ---
PT AWAKE, SITTING UP, MAKING EYE CONTACT WITH ME. SHAKING HEAD "NO" IN SIDE TO SIDE MOTION. HR UP TO 110'S AND BP 117/42. EMOTIONAL SUPPORT, EXPLANATIONS GIVEN, AND MEDICATED WITH VERSED ORDERED. EFFECTIVE.
--- NOTE | 2019-03-17 00:30 | NUR ---
SHIFT DIRECTOR SPOKE WITH DR NORTH OF NEED TO STAGE RT ELBOW.
--- NOTE | 2019-03-17 01:09 | NUR ---
I SPOKE WITH COMPETITIVE INTELLIGENCE MANAGER RE: WOUND DOCUMENTATION.
--- NOTE | 2019-03-17 01:23 | NUR ---
DR LIAO FOR CENTRAL LINE. PT RESUMED ON PROPOFOL AND GIVEN VERSED PT'S HR 140'S, AWAKE, BITING ON ETT.
--- NOTE | 2019-03-17 02:15 | NUR ---
DR NORTH TO ICU TO STAGE RT ELBOW. BP 66/36 LEVOPHED INITIATED 4 MCG/MIN.
--- NOTE | 2019-03-17 02:44 | NUR ---
BP 143/87... LEVOPHED TITRATED DOWN TO 2MCG/MIN, NS AT 250CC/HR, PROPOFOL AT 10MCG/KG/MIN. PT ADEQUATELY SEDATED.
--- NOTE | 2019-03-17 03:12 | NUR ---
BP 89/54. LEVOPHED TITRATED TO 3MCG/MIN.
--- NOTE | 2019-03-17 04:13 | NUR ---
BP 74/42 (54) LEVOPHED TITRATED TO 4MCG/MIN. PT REMAINS ADEQUATELY SEDATED AT 10MCG/KG/MIN BUT DOES AWAKEN EASILY TO VERBAL/TACTILE STIMULI.
--- NOTE | 2019-03-17 04:30 | NUR ---
LACTIC ACID 3.9. TRENDING DOWN.
[2019-03-17 04:35] LABS: BASO # 0.1 10*3/uL (0.0-0.1); BASO % 0.3 % (0.0-1.0); EOS % 0.2 % (1.0-4.0); HEMATOCRIT 38.2 % (37.0-47.0); HEMOGLOBIN 11.6 g/dl (12.0-16.0); LYMPH # 1.1 10*3/uL (1.3-4.4); LYMPH % 5.9 % (27.0-41.0); MEAN CELL VOLUME 95.3 fl (81.0-99.0); MEAN CORPUSCULAR HGB 28.9 pg (27.0-31.0); MEAN CORPUSCULAR HGB CONC 30.4 g/dl (33.0-37.0); MEAN PLATELET VOLUME 9.8 fl (9.6-12.3); MONO # 0.8 10*3/uL (0.1-1.0); MONO % 4.2 % (3.0-9.0); NEUT # 17.1 10*3/uL (2.3-7.9); NEUT % 88.8 % (47.0-73.0); PLATELET COUNT AUTOMATED 241 10*3/uL (130-400); RED BLOOD COUNT 4.01 10*6/uL (4.10-5.10); RED CELL DISTRI WIDTH 15.2 % (0-14.5); WHITE BLOOD COUNT 19.2 10*3/uL (4.8-10.8)
[2019-03-17 04:55] LABS: ALBUMIN 2.5 gm/dl (3.1-4.5); CREATININE 1.41 mg/dL (0.55-1.02); POTASSIUM 3.4 mmol/L (3.5-5.1); TOTAL PROTEIN 6.3 gm/dL (6.4-8.2)
--- NOTE | 2019-03-17 05:58 | NUR ---
INFORMATION GIVEN TO DR MCCRACKEN'S ANSWERING SERVICE...ALSO TELLING THEM THREE TIMES THAT THE DOCTOR DOES NOT NEED TO CALL ME RIGHT BACK, THAT I WAS JUST RELAYING CONSULT INFORMATION.
--- NOTE | 2019-03-17 06:42 | NUR ---
VERSED GIVEN AT 0620 EFFECTIVE FOR AGITATION/BITING ETT/TACHYCARDIA/PULLING AT RESTRAINTS.
[2019-03-17 07:24] LABS: ARTERIAL BLOOD GAS PH 7.424 (7.35-7.45)
[2019-03-17 07:26] LABS: ABG BASE EXCESS -8.9 mmol/L (-2.0-2.0)
--- NOTE | 2019-03-17 08:00 | NUR ---
PT RESTING. PT REMAINS INTUBATED AND SEDATED. PT EASILY RESPONDS TO STIMULI. PT GRIMACING AND HR INCREASING TO 120'S. IV DIPRIVAN INCREASED TO 15MICS. PT REMAINS INTUBATED WITH A 7.5 ENDOTUBE,22CM'S AT HER LIP. PT'S FIO2 HAS BEEN DECREASED TO 30% BY RESP. THERAPIST R/T PCO2 OF149 ON AM ABG'S. POX 99% PT'S BP 102/61. PT REMAINS ON LEVOPHED GTT AT 4MICS/MIN INFUSING INTO RIJ MLC. BLOOD TINGED MUCUS SUCTIONED THROUGH ENDOTUBE. LUNG SINGH DIM. OGT PLACEMENT VERIFIED WITH AN AIR BOLUS. ABD. OBESE WITH ACTIVE BOWEL SOUNDS. LIPSCOMB PATENT FOR LEE URINE. LOWER LEG EDEMA NOTED. SEEPING NOTED FROM SMALL WOUND ON RIGHT LOWER LEG. PT TURNED AND REPOSITIONED FOR COMFORT AND PRESURE ULCER PREVENTION. WILL CONTINUE TO MONITOR PT.
--- NOTE | 2019-03-17 09:08 | NUR ---
IV VERSED GIVEN TO PT FOR HER INCREASED AGITATION. DR HOUSE PLACING ARTERIAL LINE AFTER INFORMED CONSENT RECEIVED FROM PT'S NIECE,DEEPIKA.
--- NOTE | 2019-03-17 09:30 | NUR ---
ART LINE INSERTION COMPLETED. PT RESTING. EARLIER VERSED EFFECTIVE.
--- NOTE | 2019-03-17 12:00 | NUR ---
PT RESTING. NO ACUTE DISTRESS NOTED AT THIS TIME.
--- NOTE | 2019-03-17 12:23 | NUR ---
patient is intubated, not able to assess.
[2019-03-17 12:47] LABS: ACT PARTIAL THROMBO TIME 35.7 SECONDS (20.0-32.1); INTERNATIONAL NORM RATIO 1.1 (2.0-3.5)
--- NOTE | 2019-03-17 13:49 | NUR ---
DR SMITH IN TO SEE PT. ORDERED TO HOLD PT'S SEDATION. WHEN PT IS AWAKE AND APPROPRIATE CHANGE PT TO CPAP 5/10 AND ABG IN 2 HOURS IF PT TOLERATES CPAP. IF PT DOES NOT TOLERATES.
--- NOTE | 2019-03-17 13:55 | NUR ---
DR HOUSE UPDATED ON PT'S CONDITION AND DR SMITH'S ORDERS.
--- NOTE | 2019-03-17 14:56 | NUR ---
IV LEVOPHED GTT TITRATED TO OFF FOR PTS BP 149/69 WITH MAP OF 96. PT IS STILL UNABLE TO FOLLOW COMMANDS AT THIS TIME. HR IS 120-140'S. WILL CONTINUE TO MONITOR.
--- NOTE | 2019-03-17 15:48 | NUR ---
PT REMAINS UNABLE TO FOLLOW SIMPLE COMMANDS. HR UP TO 150'S. DR SMITH UPDATED. HE ORDERED TO LEAVE DIPRIVAN OFF AND USE VERSED PRN. IV VERSED 5MG GIVEN PER ORDER.
--- NOTE | 2019-03-17 16:00 | NUR ---
PT RESTING. EARLIER VERSED EFFECTIVE.
--- NOTE | 2019-03-17 16:21 | NUR ---
DR JULES IN TO SEE PT. UPDATED HIM ON PT'S CONDITION AND PLAN OF CARE. NEW ORDERS RECEIVED.
--- NOTE | 2019-03-17 16:51 | NUR ---
IV DIGOXIN GIVEN PER ORDER. HR CURRENTLY 123.
--- NOTE | 2019-03-17 18:00 | NUR ---
DR HOUSE UPDATED ON PT'S RECTAL TEMP OF 102. DR HOUSE STATED PT DID NOT NEED TO HAVE BLOOD CULTURES AT THIS TIME. IF PT SPIKES TEMP AGAIN AFTER TYLENOL GIVEN THEN CALL DOCTOR. MEDICATED PT PER PRN ORDER WITH TYLENOL FOR TEMP. AND VERSED FOR PT'S AGITATION.
--- NOTE | 2019-03-17 18:19 | NUR ---
PT RESTING. EARLIER VERSED EFFECTIVE.
--- NOTE | 2019-03-17 18:53 | NUR ---
PT RESTLESS AND AGITATED. MEDICATED PT PER PRN ORDER WITH VERSED.
--- NOTE | 2019-03-17 19:14 | NUR ---
PT RESTING. EARLIER VERSED EFFECTIVE.
--- NOTE | 2019-03-17 21:39 | NUR ---
VERSED AT 2130 FOR AGITATION EFFECTIVE.
--- NOTE | 2019-03-17 23:14 | NUR ---
COMPLETE BATH AND BED LINEN CHANGE DONE. VERSED WAS EFFECTIVE FOR SEDATION.
--- NOTE | 2019-03-17 23:37 | NUR ---
VERSED GIVEN AT 2330 FOR AGITATION EFFECTIVE. TYLENOL GIVEN AT 2150 EFFECTIVE...TEMP 99.7. HR 90'S.
[2019-03-18] VITALS (8 sets, daily range): BP systolic 100–124; BP diastolic 55–68
[2019-03-18 04:07] LABS: BASO % 0.2 % (0.0-1.0); EOS # 0.1 10*3/uL (0.0-0.4); EOS % 0.5 % (1.0-4.0); HEMATOCRIT 34.4 % (37.0-47.0); HEMOGLOBIN 10.7 g/dl (12.0-16.0); LYMPH # 1.2 10*3/uL (1.3-4.4); LYMPH % 9.7 % (27.0-41.0); MEAN CORPUSCULAR HGB 29.6 pg (27.0-31.0); MEAN CORPUSCULAR HGB CONC 31.1 g/dl (33.0-37.0); MEAN PLATELET VOLUME 9.6 fl (9.6-12.3); MONO # 0.9 10*3/uL (0.1-1.0); MONO % 6.6 % (3.0-9.0); NEUT # 10.5 10*3/uL (2.3-7.9); NEUT % 82.3 % (47.0-73.0); RED BLOOD COUNT 3.62 10*6/uL (4.10-5.10); RED CELL DISTRI WIDTH 15.3 % (0-14.5); WHITE BLOOD COUNT 12.8 10*3/uL (4.8-10.8)
--- NOTE | 2019-03-18 04:14 | NUR ---
VERSED ORDERED FOR AGITATION EFFECTIVE.
[2019-03-18 04:15] LABS: PLATELET COUNT AUTOMATED 153 10*3/uL (130-400)
[2019-03-18 04:19] LABS: ALBUMIN 2.1 gm/dl (3.1-4.5); ALKALINE PHOSPHATASE 81 U/L (45-117); BUN 19 mg/dl (7-24); CHLORIDE 106 mmol/L (98-107); CREATININE 0.91 mg/dL (0.55-1.02); PHOSPHOROUS 2.8 mg/dL (2.5-4.9); POTASSIUM 2.6 mmol/L (3.5-5.1); SGOT/AST 43 IU/L (3-35); SGPT/ALT 17 U/L (12-78); SODIUM 142 mmol/L (136-145); TOTAL PROTEIN 5.8 gm/dL (6.4-8.2)
--- NOTE | 2019-03-18 04:23 | NUR ---
PTT 67.5. NO CHANGE IN HEPARIN GTT PER [facility] PROTOCOL.
--- NOTE | 2019-03-18 05:00 | NUR ---
DR LIAO NOTIFIED OF K+ LEVEL OF 2.6. ORDERS RECEIVED.
[2019-03-18 05:48] LABS: ABG BASE EXCESS 5.3 mmol/L (-2.0-2.0); ARTERIAL BLOOD GAS PH 7.47 (7.35-7.45)
--- NOTE | 2019-03-18 06:43 | NUR ---
TESS SCOTT [id number] Please refer to the physician's history and physical for past medical history, comorbid conditions, and allergies. Diagnosis: ACUTE RESPIRATORY FAILURE WITH HYPOXEMIA Amos Score: 17,AT RISK WOUND DESCRIPTIONS: Wound Number: 1 Location of the wound: Right lower leg Thickness: Full Size: 0.2cm x 0.2cm x 0.1cm Tunneling: none Undermining: none Sinus Tract: none Presence of Exudate: Serous Amount: Moderate Color: Red, yellow Odor: None Periwound Skin Appearance: Normal Wound edges: approximated Pain (associated with wound): none at time of assessment How does patient state this happened? pt unable to state how this happened Wound Number: 2 Location of the wound: brdige of nose Type of wound: scab Thickness: Partial Size: 0.3cm x 0.3cm x <0.1cm Tunneling: none Undermining: none Sinus Tract: none Presence of Exudate: none Amount: None Color: Red Odor: None Periwound Skin Appearance: Normal Wound edges: approximated Pain (associated with wound): none at time of assessment How does patient state this happened? pt unable to state how this happened Wound Number: 3 Location of the wound: right elbow Type of wound: unstageable Thickness: Full Size: 0.5cm x 1.0cm x <0.1cm Tunneling: none Undermining: none Sinus Tract: none Presence of Exudate: none Amount: None Color: Yellow, brown, white Odor: None Periwound Skin Appearance: Erythema Wound edges: approximated Pain (associated with wound): none at time of assessment How does patient state this happened? pt unable to state how this happened Surface the patient is resting on: XPRT SKIN PREVENTION RECOMMENDATION: 1. Pressure redistribution support surface as appropriate 2. Elevate heels 3. Remove boots/TEDS every shift and reapply 4. Head of bed 30 degrees as tolerated 5. Assess nutrition and hydration 6. Manage moisture 7. Avoid the use of containment devices while in bed 8. Use absorptive products on surfaces limit layers of linens on bed 9. Turn and reposition every 1-2 hours in bed and every 1 hour in chair as tolerated 10. Weight shifts every 15 minutes while up in chair 11. Offloading with pillows or device to keep heels elevated off bed 12. Monitor skin at least every shift 13. Inspect under medical devices twice a day WOUND TREATMENT RECOMMENDATIONS: D/C partial thickness guidelines to right leg D/C skin tear guidelines to bridge of nose Partial thickness guidelines: Cleanse bridge of nose with nss and apply sureprep around the wound hydrogel to wound and cover with bandaid daily and prn for soiling. Full thickness guidelines: Cleanse right leg with nss and apply sureprep around the wound maxorb to wound and cover with dsd daily and prn for soiling Unstageable guidelines: Cleanse right elbow with nss and apply sureprep to wound and cover with optifoam gentle daily and prn for soiling. Elbow protectors to bilateral elbows at all time expect for hygiene
--- NOTE | 2019-03-18 09:00 | NUR ---
Economic Forecaster in to see patient. She is intubated. Will follow up at a later time.
--- NOTE | 2019-03-18 09:14 | NUR ---
VENTIALTOR SETTINGS CHANGED TO CPAP 5 PS 10. PATIENT AWAKE AND FOLLOWING COMMANDS AT THIS TIME.
[2019-03-18 11:21] LABS: ABG BASE EXCESS 6.6 mmol/L (-2.0-2.0); ARTERIAL BLOOD GAS PH 7.463 (7.35-7.45)
--- NOTE | 2019-03-18 11:25 | NUR ---
Dr. León notified of wound care recommendations.
--- NOTE | 2019-03-18 12:19 | NUR ---
PT EXTUBATED WITHOUT INCIDENCE. TOLERATED WELL. SUCTIONED FOR LARGE JACOB SECRETIONS. BBSs EQUAL AND CLEAR. PLACED ON BIPAP 18/ WITH RATE OF 12. RESPS REGULAR AND UNLABORED. VENT ON S/B.
[2019-03-18 14:19] LABS: ABG BASE EXCESS 6.7 mmol/L (-2.0-2.0); ARTERIAL BLOOD GAS PH 7.481 (7.35-7.45)
--- NOTE | 2019-03-18 19:49 | NUR ---
Shift chart check completed.24 HR chart check completed.
--- NOTE | 2019-03-18 21:00 | NUR ---
DR VIDAL CALLED REGARDING PATIENTS COMPLAINTS OF PAIN, AND SEVERE PAIN WHEN TOUCHING OR MOVING AROUND, AND HAVING NOTHING STRONGER THAN TYLENOL ON BOARD FOR THE PATIENT, STATE HE WILL PUT ORDERS IN.
--- NOTE | 2019-03-18 21:05 | NUR ---
PATIENT MEDICATED WITH MORPHINE PER DRS ORDERS, FOR COMPLAINTS OF SEVERE PAIN TO THE BACK, LEGS AND ARMS. ANYWHERE THIS RN TOUCHES PATIENT MAKES THE PATIENT CRY OUT IN PAIN. PATIENT YELLS OUT FOR "SOMEONE TO HELP HER, AND PLEASE GOD HELP" RN WILL MONITOR FOR EFFECTIVENESS
--- NOTE | 2019-03-18 23:15 | NUR ---
PATIENT VERY RESTLESS, DISORIENTED TO NEED FOR BIPAP. CONTINUES TO REMOVE AND THIS RN REPLACES AND EXPLAINS THE NECCESSITY OF WEARING THE BIPAP FOR THE NIGHT. PATIENT DOES NOT VERBALIZE UNDERSTANDING AND ONTINUES TO PULL AT THE HOSE COMING FROM THE BIPAP MASK.
[2019-03-19] VITALS: BP 116/68
--- NOTE | 2019-03-19 01:41 | NUR ---
PATIENT MEDICATED WITH MORPHINE, CONTINUING TO YELL OUT FOR "GOD , TO HELP HER" PATIENT CONFUSED AND IS TRYING TO TAKE BIPAP OFF, REORIENTATION ATTEMPTS ARE BEING MADE, ALTHOUGH PATIENT DOES NOT REORIENT. RN WILL CONTINUE TO MONITOR
[2019-03-19 04:00] VITALS: BP 97/58
--- NOTE | 2019-03-19 05:40 | NUR ---
TESS SCOTT [id number] Please refer to the physician's history and physical for past medical history, comorbid conditions, and allergies. Diagnosis: ACUTE RESPIRATORY FAILURE WITH HYPOXEMIA Amos Score: 13,MODERATE RISK WOUND DESCRIPTIONS: Wound Number: 4 Location of the wound: left cheek Type of wound: skin tear Thickness: Partial Size: 1.0cm x 0.6cm x 0.1cm Tunneling: none Undermining: none Sinus Tract: none Presence of Exudate: Serous Amount: Light Color: Red Odor: None Periwound Skin Appearance: Normal Wound edges: approximated Pain (associated with wound): none at time of assessment How does patient state this happened? pt unable to state how this happened When nurse caring for patient removed the bipap there wasn't a protective gel noted. Respiratory made at stated they will apply one. Surface the patient is resting on: XPRT SKIN PREVENTION RECOMMENDATION: 1. Pressure redistribution support surface as appropriate 2. Elevate heels 3. Remove boots/TEDS every shift and reapply 4. Head of bed 30 degrees as tolerated 5. Assess nutrition and hydration 6. Manage moisture 7. Avoid the use of containment devices while in bed 8. Use absorptive products on surfaces limit layers of linens on bed 9. Turn and reposition every 1-2 hours in bed and every 1 hour in chair as tolerated 10. Weight shifts every 15 minutes while up in chair 11. Offloading with pillows or device to keep heels elevated off bed 12. Monitor skin at least every shift 13. Inspect under medical devices twice a day WOUND TREATMENT RECOMMENDATIONS: Continue skin tear guidelines to face
[2019-03-19 05:59] LABS: BASO % 0.4 % (0.0-1.0); EOS # 0.3 10*3/uL (0.0-0.4); EOS % 3.2 % (1.0-4.0); HEMOGLOBIN 11.2 g/dl (12.0-16.0); LYMPH # 1.3 10*3/uL (1.3-4.4); LYMPH % 13.5 % (27.0-41.0); MEAN CELL VOLUME 95.1 fl (81.0-99.0); MEAN CORPUSCULAR HGB 28.8 pg (27.0-31.0); MEAN CORPUSCULAR HGB CONC 30.3 g/dl (33.0-37.0); MEAN PLATELET VOLUME 10.1 fl (9.6-12.3); MONO # 0.6 10*3/uL (0.1-1.0); MONO % 6.6 % (3.0-9.0); NEUT # 7.2 10*3/uL (2.3-7.9); NEUT % 75.8 % (47.0-73.0); PLATELET COUNT AUTOMATED 178 10*3/uL (130-400); RED BLOOD COUNT 3.89 10*6/uL (4.10-5.10); RED CELL DISTRI WIDTH 15.3 % (0-14.5); WHITE BLOOD COUNT 9.5 10*3/uL (4.8-10.8)
[2019-03-19 06:09] LABS: ALBUMIN 2.3 gm/dl (3.1-4.5); ALKALINE PHOSPHATASE 123 U/L (45-117); BUN 20 mg/dl (7-24); CHLORIDE 100 mmol/L (98-107); CREATININE 0.88 mg/dL (0.55-1.02); PHOSPHOROUS 2.8 mg/dL (2.5-4.9); POTASSIUM 3.1 mmol/L (3.5-5.1); SGOT/AST 77 IU/L (3-35); SGPT/ALT 23 U/L (12-78); SODIUM 139 mmol/L (136-145); TOTAL PROTEIN 6.5 gm/dL (6.4-8.2)
--- NOTE | 2019-03-19 07:30 | NUR ---
Taken off of bi-pap and placed on 2l nasal cannula. Pulse ox 96%. Dry cough noted. Lungs diminished bilaterally. 1+ edema noted to bilateral lower legs. Colon draining dark sivan urine. Afebrile. Art line intact to right radial and flushes easily. Alert to person only.
[2019-03-19 08:00] VITALS: BP 101/60
--- NOTE | 2019-03-19 08:06 | NUR ---
PT NOT ON BIPAP AT THIS TIME
--- NOTE | 2019-03-19 10:31 | NUR ---
Spoke to Camelia centeno, at [phone] regarding discharge planning per patient's request. Discussed short term SNF and niece is agreeable. Spoke to patient about CM talking to niece and niece being agreeable to short term SNF. When provided with a list of facilities niece and patient are agreeable [facility] or [facility]. liaison planner notified.
--- NOTE | 2019-03-19 11:00 | NUR ---
Occupational therapy orders received and OT evaluation completed in full on the ICCU. Patient precautions include fall risk, impulsive, Max Ax3, ICCU, heart monitor, increased pain, 3LO2. Per OT eval, OT recommends SNF. Patient would benefit from continued OT treatment to maximize safety and independence with ADLs and transfers. Patient complexity is high, [id number]. Thank you for the referral. Jenni Watson, OTR/L
--- NOTE | 2019-03-19 11:00 | NUR ---
PHYSICAL THERAPY Jennaal completed pt moderate level of complexity [id number] full report to follow recomend SNF at discharge. PT to work on transfers,amb,balance/safety, strengthening. Angely Wise PT
[2019-03-19 12:00] VITALS: BP 109/58
--- NOTE | 2019-03-19 12:05 | NUR ---
COMPLETE BED AND BATH DONE. COMPLAINS OF PAIN ALL OVER. RATES PAIN A 10 ON A PAIN SCALE OF 1-10. MEDICATED WITH MORPHINE 2MG IV ORDERED
--- NOTE | 2019-03-19 13:00 | NUR ---
RESTING AFTER MORPHINE GIVEN.
--- NOTE | 2019-03-19 13:20 | NUR ---
ECHO BEING DONE AT BEDSIDE
--- NOTE | 2019-03-19 14:38 | NUR ---
Patient requesting a referral to [facility]. Contacted facility and faxed full referral. Waiting on review/acceptance. Requires 3 night stay
[2019-03-19 16:00] VITALS: BP 105/56
--- NOTE | 2019-03-19 18:19 | NUR ---
MEDICATED WITH NORCO FOR COMPLAINTS OF PAIN IN LOWER LEGS. RATES PAIN A 10 ON A PAIN SCALE OF 1-10
[2019-03-19 20:00] VITALS: BP 116/60
--- NOTE | 2019-03-19 20:39 | NUR ---
Shift chart check completed.24 HR chart check completed.
--- NOTE | 2019-03-19 23:32 | NUR ---
PATIENT CLEANED UP FOR LARGE AMOUNT OF INCONTINENT URINE. COMPLETE BED CHANGE WAS REQUIRED. URINE WAS VERY DARK LEE/ORANGE COLORED. PATIENT COMPLAINTING THAT HE BACK AND BUTTOCK ARE ITCHING. LOTION WAS APPLIED AND BACK WAS SCRATCHED. PATIENT VERY CONFUSED TO PLACE AND TIME. PATIENT IS WANTING TO STAND UP AND STRETCH AT THIS TIME, BUT PATIENT IS EXTREMELY WEAK AND COULDNT TOLERATE PT/OT TODAY, THIS RN DID NOT GET PATIENT OUT OF BED, DID OFFER REPOSITIONING AND RN COMFORT MEASURES.
--- NOTE | 2019-03-19 23:35 | NUR ---
AFTER PATIENTS BED WAS CHANGED AND PATIENT WAS TUCKED IN, SHE BECAME VERY RESTLESS AND STATED THAT HER BACK AND BUTTOCKS WERE ITCHING. PATIENT VERY RESTLESS IN THE BED, KICKING LEGS AND MOVING BODY AROUND THE BED. SHE CONTINUES TO REMOVE HER BIPAP AND YELL OUT. TO BE CALLED FOR ORDERS
--- NOTE | 2019-03-19 23:40 | NUR ---
DR EVANS CALLED REGARDING PATIENT BEING ITCHY, AND VERY RESTLESS. AWAITING ORDERS
--- NOTE | 2019-03-19 23:45 | NUR ---
ONE TIME PO BENADRYAL GIVEN FOR PATIENT COMPLAINTS OF ITCHING TO BACK SIDE. WILL MONITOR
[2019-03-20] VITALS: BP 117/48
--- NOTE | 2019-03-20 00:06 | NUR ---
BIPAP IS OFF, PATIENT CONTINUALLY TAKES IT OFF AND WILL NOT ALLOW RN TO REAPPLY. YELLING THAT SHE CANNOT BREATH. RN WILL ATTEMPT TO REAAPLY BIPAP
--- NOTE | 2019-03-20 00:15 | NUR ---
ART LINE NOT FUNCTIONING, WILL NOT PRODUCE WAVEFORM NO MATTER HOW MANY TIMES ZERO WAS DONE. CALLED AND MADE AWARE. ART LINE REMOVED, DRY STERILE PRESSURE DRESSING APPLIED AND PRESSURE WAS HELD BY THIS RN. NO SIGNS OF BLEEDING. RN WILL MONITOR
--- NOTE | 2019-03-20 00:30 | NUR ---
PATIENT STATES SHE "IS IN PAIN, AND CANNOT TAKE ANYMORE" RN MEDICATED WITH MORPHINE PER DRS ORDERS FOR COMPLAINTS OF 10 OUT OF 10 PAIN TO THE BACK.
[2019-03-20 04:00] VITALS: BP 102/54
--- NOTE | 2019-03-20 04:10 | NUR ---
Upon discharge recommend patient to follow up for wound care in outpatient setting continue current wound care orders at discharging facility.
--- NOTE | 2019-03-20 04:59 | NUR ---
PATIENT AGAIN INCONTINENT OF LARGE AMOUNT OF URINE, AND ALSO HAS RIPPED IV OUT OF THE RIGHT ANTECUBITAL. COMPLETE BED CHANGE DONE AND PATIENT CLEANED UP. PATIENT REMAINS DISORIENTED.
--- NOTE | 2019-03-20 05:20 | NUR ---
MORPHINE GIVEN FOR PATIENT YELLING OUT "GOD HELP ME" COMLPAINTS OF 10/10 PAIN TO LEGS AND BACK.
[2019-03-20 06:01] LABS: BASO # 0.1 10*3/uL (0.0-0.1); BASO % 0.7 % (0.0-1.0); EOS # 0.6 10*3/uL (0.0-0.4); EOS % 7.7 % (1.0-4.0); HEMATOCRIT 37.6 % (37.0-47.0); HEMOGLOBIN 11.3 g/dl (12.0-16.0); LYMPH # 1.3 10*3/uL (1.3-4.4); LYMPH % 17.9 % (27.0-41.0); MEAN CELL VOLUME 96.7 fl (81.0-99.0); MEAN CORPUSCULAR HGB CONC 30.1 g/dl (33.0-37.0); MEAN PLATELET VOLUME 10.2 fl (9.6-12.3); MONO # 0.6 10*3/uL (0.1-1.0); MONO % 8.6 % (3.0-9.0); NEUT # 4.8 10*3/uL (2.3-7.9); NEUT % 64.6 % (47.0-73.0); PLATELET COUNT AUTOMATED 196 10*3/uL (130-400); RED BLOOD COUNT 3.89 10*6/uL (4.10-5.10); WHITE BLOOD COUNT 7.4 10*3/uL (4.8-10.8)
[2019-03-20 06:03] LABS: ALBUMIN 2.3 gm/dl (3.1-4.5); ALKALINE PHOSPHATASE 167 U/L (45-117); BUN 20 mg/dl (7-24); CHLORIDE 99 mmol/L (98-107); CREATININE 0.71 mg/dL (0.55-1.02); POTASSIUM 3.3 mmol/L (3.5-5.1); SGOT/AST 90 IU/L (3-35); SGPT/ALT 29 U/L (12-78); SODIUM 139 mmol/L (136-145); TOTAL PROTEIN 6.8 gm/dL (6.4-8.2)
--- NOTE | 2019-03-20 06:23 | NUR ---
Patient resting quietly with no c/o discomfort. Respirations easy and regular. Vital signs stable. No overt distress. CORAL PIERCE
[2019-03-20 08:00] VITALS: BP 104/60
--- NOTE | 2019-03-20 08:00 | NUR ---
PT AWAKE AND ALERT TO SELF ONLY. VSS. POX 96% ON 2L NC. LUNG SINGH ARE DIM. W/ AN AUDIBLE WHEEZING. OCCASIONAL MOIST COUGH NOTED. ABD. OBESE WITH ACTIVE BOWEL SOUNDS. TRACE LOWER LEG EDEMA NOTED. DRESSINGS TO WOUNDS D/I. PT DENIES COMPLAINTS AT THIS TIME. WILL CONTINUE TO MONITOR PT.
--- NOTE | 2019-03-20 09:00 | NUR ---
Cosmetics Supervisor in to talk to patient. Patient states lives at home alone with her niece checking in on her. There are 0 steps in the home. Physician: Dr. Abrahan Guy Pharmacy: [facility] services: [facility] currently Patient's level of ADLs: MODERATE ASSIST Patient has working utilities: yes DME: walker, scooter Follow-up physician's appointment after d/c: will be made by the hospitalist nurse director upon discharge Does patient want to access PORTAL?: no Discharge plan discussed with patient. She lives at home alone with her niece checking in on her. She normally needs minimal assistance with her ADLs and ambulates with a walker or uses a scooter. Discharge plan undecided at this time. ALETA CONROY
--- NOTE | 2019-03-20 10:00 | NUR ---
PT RESTING. PT ATE ABOUT 75% OF BREAKFAST.
--- NOTE | 2019-03-20 10:43 | NUR ---
Attempted to reach Camelia centeno, regarding LTAC with no success. Left voicemail. Awaiting return call.
[2019-03-20 12:00] VITALS: BP 116/79
--- NOTE | 2019-03-20 13:12 | NUR ---
OT NOTE Pt was seen this P.M. 1:1 for 20 minute OT session. Upon arrival pt was supine in bed. Pt identified by name and and had no complaints at this time. Pt transferred supine to sit EOB with maxA X 2. Pt completed multiple sit to stand transfers from bed level with maxA X 2 and use of w/w for UE support. Challenged pt's static standing tolerance needed for increased I in self care tasks and functional transfers. Pt was able to tolerate aprox less than 30 seconds at a time before sitting due to fatigue and weakness. Pt then transferred back into bed sit to supine with maxA x 2 and was repositioned with maxA x 2. There she was left with call light in hand, tray table in place, and ICCU nurse notified. Continue with rec D/C plan to SNF. EZIO Childers
--- NOTE | 2019-03-20 13:24 | NUR ---
Spoke to nieceCamelia, regarding LTAC. When provided with a list of facilities, she chose [facility]. kit planner notified.
--- NOTE | 2019-03-20 13:27 | NUR ---
PHYSICAL THERAPY TREATMENT TIME: 12:50 PM - 1:12 PM 22 MINUTES [facility] with 2 liters of spO2 VIA NASAL CANULA. Patient is a little confused. Patient gives informed consent for treatment. Patient performed supine to sitting at EOB with MAX A X 2. Patient sat on EOB with CGA. Patient sit to stand from EOB with MAX A X 2. Patient required verbal cues for pushing off the bed with hands, upright posture, locking knees into extension to prevent knee buckle. Patient standing tolerance at Walker with CGA X 2 - MIN A X 2 FOR 3Xs/ seperate times < 30 seconds each time. Patient performed transfer back to supine in bed with MAX A X 2. Patient was moved up to head of bed with sheet with MAX A X 2. Patient was left in supine in bed with head of bed elevated, call light within reach and bed alarm activated. BRAKE IS IN ON POSITION. Patient was 1:1 with this JOINT FINISHER for 22 minutes total. AMEENA COLIN JOINT FINISHER
--- NOTE | 2019-03-20 13:39 | NUR ---
COMPLETE BED BATH GIVEN TO PT AND LINENS CHANGED. WOUNDS FOUND UNDER HER BREASTS. WILL UPDATE DOCTORS.
--- NOTE | 2019-03-20 13:41 | NUR ---
PT REFUSED WOUND PICTURES AT THIS TIME.
--- NOTE | 2019-03-20 13:51 | NUR ---
WOUND ORDERS RECEIVED FROM DR JACOME.
--- NOTE | 2019-03-20 14:08 | NUR ---
SPEECH PATHOLOGY Nursing screen completed. This dept. will be available if needs arise. RANDEE MCCORMACK MSCCC-COMMUNITY BOARD MEMBER
--- NOTE | 2019-03-20 14:49 | NUR ---
OCCUPATIONAL THERAPY CO-SIGN I approve of the Occupational Therapy notes written above. LEONIDES KUMARI, OTR/L
--- NOTE | 2019-03-20 14:55 | NUR ---
PT TRANSFERED TO [facility] VIA BED. PT REPORT GIVEN TO RECEIVING NURSE.
[2019-03-20 16:00] VITALS: BP 112/68
--- NOTE | 2019-03-20 19:30 | NUR ---
Pt is refusing to wear Bi-PAP this evening.
[2019-03-20 20:00] VITALS: BP 120/72
[2019-03-21] VITALS: BP 120/85
--- NOTE | 2019-03-21 03:22 | NUR ---
24 HR chart check completed.
--- NOTE | 2019-03-21 04:14 | NUR ---
DR. VIDAL NOTIFIED THAT PATIENT REMOVED RIJ. REQUESTED WE TRY TO GET IV ACCESS.
--- NOTE | 2019-03-21 04:20 | NUR ---
IV started left forearm with #22 angiocath after 1ST attempts. The IV site was prepped with Chloraprep. Heparin lock attached. Sterile dressing applied. Patient tolerated precedure well. Procedure performed according to [facility] policy & procedure. ARNOLD ZUNIGA
--- NOTE | 2019-03-21 04:25 | NUR ---
DR. VIDAL CAME TO FLOOR AND SAW PATIENT. SUTURES REMOVED . MEASUREMENT WAS 19 CM FROM TIP TO SUTURE AREA. NO BLEEDING RIJ INTACT.
--- NOTE | 2019-03-21 04:31 | NUR ---
NORCO GIVEN PER PRN ORDER AND PATIENT REQUEST FOR C/O HIP/ BACK PAIN.. SEE EMAR.
--- NOTE | 2019-03-21 05:27 | NUR ---
TESS SCOTT [id number] Please refer to the physician's history and physical for past medical history, comorbid conditions, and allergies. Diagnosis: ACUTE RESPIRATORY FAILURE WITH HYPOXEMIA Amos Score: 13,MODERATE RISK WOUND DESCRIPTIONS: ( new skin impairment ) Wound Number: 5 Location of the wound: Left breast Type of wound: fungal Thickness: Partial Size: 0.5cm x 11.0cm x 0.1cm Tunneling: none Undermining: none Sinus Tract: none Presence of Exudate: Serosanguineous Amount: Light Color: Red Odor: None Periwound Skin Appearance: Normal Wound edges: approximated Pain (associated with wound): none at time of assessment How does patient state this happened? pt unable to state how this happened Wound Number: 6 Location of the wound: Right breast Type of wound: fungal Thickness: Partial Size: 0.4cm x 4.5cm x 0.1cm Tunneling: none Undermining: none Sinus Tract: none Presence of Exudate: Serosanguineous Amount: Light Color: Red Odor: None Periwound Skin Appearance: Normal Wound edges: approximated Pain (associated with wound): none at time of assessment How does patient state this happened? pt unable to state how this happened Surface the patient is resting on: Isoflex SKIN PREVENTION RECOMMENDATION: 1. Pressure redistribution support surface as appropriate 2. Elevate heels 3. Remove boots/TEDS every shift and reapply 4. Head of bed 30 degrees as tolerated 5. Assess nutrition and hydration 6. Manage moisture 7. Avoid the use of containment devices while in bed 8. Use absorptive products on surfaces limit layers of linens on bed 9. Turn and reposition every 1-2 hours in bed and every 1 hour in chair as tolerated 10. Weight shifts every 15 minutes while up in chair 11. Offloading with pillows or device to keep heels elevated off bed 12. Monitor skin at least every shift 13. Inspect under medical devices twice a day WOUND TREATMENT RECOMMENDATIONS: Continue nystatin powder every 8 hours to bilateral breasts and bilateral groin areas.
--- NOTE | 2019-03-21 07:45 | NUR ---
PHYSICAL THERAPY Screen received pt has been evaluated and is on caseload thank you Angely Wise PT
[2019-03-21 08:00] VITALS: BP 132/64
--- NOTE | 2019-03-21 08:01 | NUR ---
Notified Aretha from [facility] to review patient for LTACH. Faxed demographics and EMAR. Waiting on acceptance. Patient referral was also faxed to [facility] if she doesn't qualify for LTACH.
--- NOTE | 2019-03-21 09:00 | NUR ---
Fibre Technologist in to see patient. She is requesting Talcum powder for her left leg. Asked why she needed Talcum powder and she said her leg hurt. Asked if she wanted something for pain and she stated yes. Informed nurse. When medically stable and accepted she will be discharged to [facility]. logistics planner following.
--- NOTE | 2019-03-21 11:10 | NUR ---
OT NOTE Pt was seen this A.M. 1:1 for 20 minute OT session. Upon arrival pt was sitting upright on the EOB. Pt identified by name and and had complaints of BLE pain which she was unable to rate on 0-10 pain scale. Pt presented to therapy with continuous 3L-O2 via NC which she remained on throughout the entire session. Challenged pt's dynamic sitting balance needed for increased I and enhanced safety in self care tasks. While weight shifting, crossing midline, and reaching over all planes pt was able to maintain F- sitting balance. Pt completed multiple sit to stand transfers from bed level with modA X 2 and use of w/w for UE support. Challenged pt's static standing tolerance needed for increased I in self care tasks and functional transfers. Pt was able to tolerate aprox 2-3 minutes at a time before sitting due to fatigue. Pt then completed standing pivot from the EOB to the bedside chair with Flory and use of w/w. Pt then completed multiple sit to stand transfers from bedside chair with maxA X 2 and use of w/w for UE support. Pt was educated on proper hand placement for increased I and improved technique, pt had good carry over throughout. While sitting in the bedside chair requested for pt to doff and carroll B socks. Pt was able to doff B socks using her feet and toes with SBA and then was unable to retrieve off the ground and carroll resulting in maxA to complete. Throughout entire session pt required constant verbal prompts for attention to task. Pt was left sitting upright in the bedside chair with body alarm activated for safety, call light in hand, and tray table in place. Continue with rec D/C plan to SNF. EZIO Childers
--- NOTE | 2019-03-21 11:38 | NUR ---
Patient updated clinicals and therapy notes + bipap orders faxed to [facility] for review.
--- NOTE | 2019-03-21 11:40 | NUR ---
PHYSICAL THERAPY Patient presented to therapy sitting on EOB with MILLY Winn and another PLATE STRAIGHTENER present with patient. Patient is on 3 liters of spO2 VIA NASAL CANULA. Patient gives informed consent for treatment. Patient was identified by name and on wristband. Patient performed sit to stand from EOB with MOD A X 2. Patient side-stepped 3' then turned to in front of bedside chair with CGA X 2. Patient sat in bedside chair with MIN A X 2 with verbal cues for putting hands back on armrests of chair to slow descent into chair. Patient sit to stand out of bed side chair with MAX A X 2 with verbal cues for pushing off armrests of chair with hands. Patient stood at Walker with CGA X 2 for 35 seconds the first attempt and 30 seconds the 2nd attempt. Patient required verbal cues for locking knees into extension to prevent knee buckling and for pushing down on Walker with hands. Patient was left in bedside chair with call light within reach, chair alarm tested and attached to patient and tray table near patient. Patient was 1:1 with this CLOTH GRADER for 17 minutes total. AMEENA COLIN CLOTH GRADER
--- NOTE | 2019-03-21 11:45 | NUR ---
Nutritional Support Services Note: Pt has dx of severe sepsis. Currently on a soft diet. Albumin level is 2.3. Will provide high protein night snack. Encourage good PO intakes. Will follow if needed. JUSTYNA Macias international tax manager
--- NOTE | 2019-03-21 11:50 | NUR ---
[facility] today but it will not be in until tomorrow. Waiting for bipap confirmation
[2019-03-21 12:00] VITALS: BP 102/58
--- NOTE | 2019-03-21 13:16 | NUR ---
OT NOTE Attempted to see pt this P.M. for second OT session. Upon arrival pt was eating her lunch. Will check back at a later time/date and continue with POC as able. GUY Childers/[place]
--- NOTE | 2019-03-21 15:57 | NUR ---
OCCUPATIONAL THERAPY CO-SIGN I approve of the Occupational Therapy notes written above. ALEX SEGUNDO OTR/[place]
[2019-03-21 16:00] VITALS: BP 103/75
[2019-03-21 20:00] VITALS: BP 128/74
[2019-03-22] VITALS: BP 113/62
--- NOTE | 2019-03-22 00:11 | NUR ---
Pt placed on NIV for the evening.
--- NOTE | 2019-03-22 02:00 | NUR ---
ANA LILIA FROM RESPIRATORY NOTIFIED OF PT REMOVAL OF BIPAP AND REQUEST TO BE BACK ON 2L NC, THE BIPAP WAS "HURTING HER FACE".
--- NOTE | 2019-03-22 03:08 | NUR ---
NORCO ADMINISTERED FOR PT C/O BILATERAL LEG PAIN. WILL MONITOR AND REASSESS.
--- NOTE | 2019-03-22 03:52 | NUR ---
24 HOUR CHART CHECK COMPLETE.
--- NOTE | 2019-03-22 05:05 | NUR ---
PT UP TO RECLINER WITH 3 ASSIST. PTS FEET ELEVATED AND PLACED ON PILLOWS. PT ON 2L NC. DENIES ANY COMPLAINTS AT THIS TIME. WILL CONTINUE TO MONITOR.
[2019-03-22 06:14] LABS: BASO # 0.1 10*3/uL (0.0-0.1); BASO % 0.9 % (0.0-1.0); EOS # 0.5 10*3/uL (0.0-0.4); EOS % 7.9 % (1.0-4.0); HEMATOCRIT 39.3 % (37.0-47.0); HEMOGLOBIN 11.9 g/dl (12.0-16.0); LYMPH # 1.1 10*3/uL (1.3-4.4); LYMPH % 18.9 % (27.0-41.0); MEAN CELL VOLUME 95.4 fl (81.0-99.0); MEAN CORPUSCULAR HGB 28.9 pg (27.0-31.0); MEAN CORPUSCULAR HGB CONC 30.3 g/dl (33.0-37.0); MEAN PLATELET VOLUME 9.4 fl (9.6-12.3); MONO # 0.6 10*3/uL (0.1-1.0); MONO % 10.9 % (3.0-9.0); NEUT # 3.5 10*3/uL (2.3-7.9); NEUT % 60.3 % (47.0-73.0); PLATELET COUNT AUTOMATED 208 10*3/uL (130-400); RED BLOOD COUNT 4.12 10*6/uL (4.10-5.10); WHITE BLOOD COUNT 5.7 10*3/uL (4.8-10.8)
[2019-03-22 06:25] LABS: BUN 11 mg/dl (7-24); CHLORIDE 104 mmol/L (98-107); CREATININE 0.62 mg/dL (0.55-1.02); POTASSIUM 3.5 mmol/L (3.5-5.1); SODIUM 141 mmol/L (136-145)
--- NOTE | 2019-03-22 08:45 | NUR ---
Assisted back to bed with 3 assist.
--- NOTE | 2019-03-22 09:25 | NUR ---
PHYSICAL THERAPY Patient seen this am 1:1 for therapy visit and was supine in bed upon therapist arrival. Patient identified by name / and presented with several bouts of increased confusion, including continuos O2-2L via NC. Patient recorded SpO2 95%, HR 59 bpm. OT commercial real estate assistant was also present this session for observation only as patient transfers supine to sit EOB with MOD A x 2. Patient needed a few minutes of static EOB sit to collect herself, then performed sit to stand transfer, use of wh walker standing support, MOD A x 2. Patient demonstrated Fair+ upright posture, completing SPT to bedside chair MIN A x 2, wh walker, demonstating very slow, cautious step sequence. Patient fatigues quickly, needing brief seated rest break prior to completing seated B LE therex, all planes, x 10 reps each without c/o. Patient remained in bedside chair with call light, tray table, telephone and body alarm. Will continue per POC as tolerated, total treatment time 15 minutes. Emeka Monterroso, TELEHEALTH NURSE EDUCATOR
--- NOTE | 2019-03-22 09:45 | NUR ---
Pt up sitting in chair. Therapy had got up out of bed to chair.
--- NOTE | 2019-03-22 09:47 | NUR ---
Patients bipap has arrived to [facility]. Patient is ok to go if medically stable for discharge.
--- NOTE | 2019-03-22 09:53 | NUR ---
OT NOTE Pt was seen this A.M. 1:1 for 18 minute OT session. Upon arrival pt was supine in bed. Pt identified by name and and had no complaints at this time. Pt presented to therapy with continuous 2L-O2 via NC which she remained on throughout the entire session. Pt also presented with increased confusion as indicated by being disoriented and unable to follow conversation bouncing from topic to topic. Pt transferred supine to sit EOB with modA X 2. Pt completed sit to stand from bed level with modA x 2 and use of w/w for UE support. Challenged pt's static standing tolerance needed for increased I in self care tasks and functional transfers. Pt was able to tolerate aprox 30-45 seconds before sitting due to fatigue. Pt then completed sit to stand from bed level with modA X 2 followed by standing pivot from the EOB to the recliner with Flory and use of w/w. Pt was left sitting upright in the recliner with call light in hand, tray table in place, and body alarm activated for safety. Continue with rec D/C plan to SNF. GUY Childers/Keon
[2019-03-22] MEDS ORDERED: OMNICEF300 MG PO (10:18)
[2019-03-22] MEDS ORDERED: HYDROCODONE-AC1 EAC1 PO (10:18)
[2019-03-22] MEDS ORDERED: ZITHROMAX500 MG PO (10:18)
[2019-03-22] MEDS ORDERED: LOPRESSOR25 MG PO (10:18)
[2019-03-22] MEDS ORDERED: NYSTOP60 GM T (10:18)
[2019-03-22] MEDS ORDERED: Ipratropium Brom3 ML NEB (10:21)
[2019-03-22] MEDS ORDERED: Humalog SQ (10:21)
[2019-03-22] MEDS ORDERED: POTASSIUM CHLO10 MEQ PO (10:23)
--- NOTE | 2019-03-22 10:54 | NUR ---
Patient is discharged to [facility] via [facility] @ 2:30 PM. D/C information faxed. NH, nursing/fish and game warden notified. Attempted to truck driver salesperson listed, unable to contact, left message.
--- NOTE | 2019-03-22 11:45 | NUR ---
Pt assisted back to bed.
[2019-03-22 12:00] VITALS: BP 122/81
--- NOTE | 2019-03-22 14:00 | NUR ---
Attempted to call report to [facility]. From corrugator operator I was transferred to the mains and service supervisor phone which was just answering service, stated this is Antonio nursing mains and service supervisor to leave a message. I left message with call back number so I could give a nurse to nurse report. Awaiting call back.
--- NOTE | 2019-03-22 14:38 | NUR ---
Ambulance here to take pt to [facility]. Pt had ring in walleroo that was put in denture cup and then small bag with pt name sticker. Handed to ambulance crew and explained that there was a ring in bag. Report attempted for second time and called to Rebecca at [facility]. Nurse to nurse report given and notified of valuable given to ambulance crew. Pt left in care of [facility].
--- NOTE | 2019-03-22 14:42 | NUR ---
PHYSICAL THERAPY CO-SIGN I approve of the Physical Therapy notes written above. Angely Wise PT
--- NOTE | 2019-03-25 07:49 | NUR ---
OCCUPATIONAL THERAPY CO-SIGN I approve of the Occupational Therapy notes written above. LEONIDES KUMARI, OTR/L
== END 2019-03-22 14:38 | disposition other institution (70) | DRG 871 ==
LOC: ED 18:38 → EDHOLD 20:32 → ICCU 20:32 → 5E 03-20 14:16
PROVIDERS: Emergency Medicine; Emergency Medicine Emergency Medical Services; Internal Medicine; Internal Medicine Critical Care Medicine; Student in an Organized Health Care Education/Training Program; ADMIT Internal Medicine
PROC: 5A09357 Assistance with Respiratory Ventilation, Less than 24 Consecutive Hours, Continuous Positive Airway Pressure (ICD-10-PCS; principal; 2019-03-16)
PROC: 0BH17EZ Insertion of Endotracheal Airway into Trachea, Via Natural or Artificial Opening (ICD-10-PCS; principal; 2019-03-16)
PROC: 5A1945Z Respiratory Ventilation, 24-96 Consecutive Hours (ICD-10-PCS; principal; 2019-03-16)
PROC: 4A133J1 Monitoring of Arterial Pulse, Peripheral, Percutaneous Approach (ICD-10-PCS; 2019-03-17)
PROC: B548ZZA Ultrasonography of Superior Vena Cava, Guidance (ICD-10-PCS; 2019-03-17)
PROC: 02HV33Z Insertion of Infusion Device into Superior Vena Cava, Percutaneous Approach (ICD-10-PCS; 2019-03-17)
PROC: 4A133B1 Monitoring of Arterial Pressure, Peripheral, Percutaneous Approach (ICD-10-PCS; 2019-03-17)
PROC: 03HY32Z Insertion of Monitoring Device into Upper Artery, Percutaneous Approach (ICD-10-PCS; 2019-03-17)
PROC: 5A09357 Assistance with Respiratory Ventilation, Less than 24 Consecutive Hours, Continuous Positive Airway Pressure (ICD-10-PCS; 2019-03-18)
PROC: 5A09357 Assistance with Respiratory Ventilation, Less than 24 Consecutive Hours, Continuous Positive Airway Pressure (ICD-10-PCS; 2019-03-19)
DX: A41.9 Sepsis, unspecified organism (principal); J96.01 Acute respiratory failure with hypoxia; J15.6 Pneumonia due to other Gram-negative bacteria; I50.33 Acute on chronic diastolic (congestive) heart failure; J96.02 Acute respiratory failure with hypercapnia; Z68.43 Body mass index [BMI] 50.0-59.9, adult; I24.8 Other forms of acute ischemic heart disease; I48.21 Permanent atrial fibrillation; N17.9 Acute kidney failure, unspecified; R65.20 Severe sepsis without septic shock; E11.65 Type 2 diabetes mellitus with hyperglycemia; I11.0 Hypertensive heart disease with heart failure; E66.01 Morbid (severe) obesity due to excess calories; E03.9 Hypothyroidism, unspecified; I48.0 Paroxysmal atrial fibrillation; E87.6 Hypokalemia; Z96.659 Presence of unspecified artificial knee joint; Z96.1 Presence of intraocular lens; Z79.01 Long term (current) use of anticoagulants; Z88.5 Allergy status to narcotic agent; Z90.49 Acquired absence of other specified parts of digestive tract; Z98.49 Cataract extraction status, unspecified eye; Z79.82 Long term (current) use of aspirin; Z79.899 Other long term (current) drug therapy; Z79.51 Long term (current) use of inhaled steroids

== ENCOUNTER 2019-04-11 11:27 | Inpatient (IN) | payer MEDICARE ==
[~2019-04-11] VITALS: Ht 167.6 cm; Wt 128.8 kg
[~2019-04-11 11:27] MED LIST changes: +ASPIRIN ADULT L81 M1 PO; +HYDROCODONE-AC1 EAC1 PO; +Humalog SQ; +Ipratropium Brom3 ML NEB; +LOPRESSOR25 MG PO; +NYSTOP60 GM T; +OMNICEF300 MG PO; +POTASSIUM CHLO10 MEQ PO; +PREDNISONE5 MG PO; +SYMB160 INH
[2019-04-11 11:32] VITALS: BP 101/85
--- NOTE | 2019-04-11 12:01 | NUR ---
While rolling Pt, Pt obtained new skin tear on left elbow, minial bleeding noted, Donna PORCELAIN ENAMEL INSTALLER notifed.
[2019-04-11 12:19] LABS: BASO % 0.6 % (0.0-1.0); EOS % 0.4 % (1.0-4.0); HEMATOCRIT 37.9 % (37.0-47.0); HEMOGLOBIN 11.7 g/dl (12.0-16.0); LYMPH # 0.7 10*3/uL (1.3-4.4); MEAN CELL VOLUME 96.9 fl (81.0-99.0); MEAN CORPUSCULAR HGB 29.9 pg (27.0-31.0); MEAN CORPUSCULAR HGB CONC 30.9 g/dl (33.0-37.0); MEAN PLATELET VOLUME 9.8 fl (9.6-12.3); MONO # 0.6 10*3/uL (0.1-1.0); MONO % 13.2 % (3.0-9.0); NEUT # 3.4 10*3/uL (2.3-7.9); NEUT % 71.6 % (47.0-73.0); PLATELET COUNT AUTOMATED 138 10*3/uL (130-400); RED BLOOD COUNT 3.91 10*6/uL (4.10-5.10); RED CELL DISTRI WIDTH 16.1 % (0-14.5); WHITE BLOOD COUNT 4.7 10*3/uL (4.8-10.8)
[2019-04-11 12:29] LABS: ACT PARTIAL THROMBO TIME 35.4 SECONDS (20.0-32.1); INTERNATIONAL NORM RATIO 1.2 (2.0-3.5)
[2019-04-11 12:32] VITALS: BP 125/65
[2019-04-11 12:34] LABS: ALBUMIN 2.8 gm/dl (3.1-4.5); ALKALINE PHOSPHATASE 101 U/L (45-117); BUN 11 mg/dl (7-24); CHLORIDE 102 mmol/L (98-107); CREATININE 0.78 mg/dL (0.55-1.02); LIPASE 35 U/L (73-393); PHOSPHOROUS 2.8 mg/dL (2.5-4.9); POTASSIUM 4.1 mmol/L (3.5-5.1); SGOT/AST 27 IU/L (3-35); SGPT/ALT 19 U/L (12-78); SODIUM 136 mmol/L (136-145); TOTAL PROTEIN 6.7 gm/dL (6.4-8.2)
[2019-04-11 12:43] LABS: BILIRUBIN NEGATIVE (NEGATIVE); CLARITY SL CLOUDY (CLEAR); COLOR STRAW (YELLOW); GLUCOSE NEGATIVE (NEGATIVE); KETONE TRACE (NEGATIVE); SPECIFIC GRAVITY 1.025 (1.005-1.030)
[2019-04-11 12:44] LABS: BACTERIA 2+; BLOOD 3+ (NEGATIVE); LEUKO ESTERASE NEGATIVE (NEGATIVE); MUCOUS 3+; NITRITE NEGATIVE (NEGATIVE); UROBILINOGEN 0.2 E.U./dl (0.2-1.0); YEAST 3+
[2019-04-11 12:56] LABS: ABG BASE EXCESS 3.5 mmol/L (-2.0-2.0); ARTERIAL BLOOD GAS PH 7.418 (7.35-7.45)
[2019-04-11 13:01] VITALS: BP 114/75
--- NOTE | 2019-04-11 15:09 | NUR ---
PATIENT PULLED OUT HER IV ACCESS IN R FOREARM. NEW IV ACCESS OBTAINED IN R HAND.
[2019-04-11 15:30] VITALS: BP 126/74
--- NOTE | 2019-04-11 15:32 | NUR ---
MSTime: 1510 A 89 year old FEMALE admitted to under services of ERICKSON SILVER DO. Pt. arrived via ambulance from ER. Chief complaint: FOUL SMELLING URINE. SENT FROM [facility]. SMITHA HYMAN
--- NOTE | 2019-04-11 15:45 | NUR ---
'S OFFICE NOTIFIED OF CONSULT.
[2019-04-11] MEDS ORDERED: POTASSIUM CHLO20 ME4 PO (16:05)
[2019-04-11] MEDS ORDERED: VISTARIL50 MG PO (16:06)
[2019-04-11] MEDS ORDERED: VITAMIN D35000 UNIT PO (16:10)
--- NOTE | 2019-04-11 16:18 | NUR ---
NOTIFIED REGARDING CRITICAL TROPONIN LEVEL.
--- NOTE | 2019-04-11 16:20 | NUR ---
MED REC UPDATED PER POLICY.
--- NOTE | 2019-04-11 16:22 | NUR ---
ATTEMPTED TO REACH REGARDING CRITICAL TROPONIN LEVEL. UNABLE TO REACH AT THIS TIME. ANSWERING SERVICE STATES "NO PHYSICIAN IS SUPERVISOR ELECTRIC ". WILL TRY AGAIN.
--- NOTE | 2019-04-11 16:34 | NUR ---
ANSWERING SERVICE CALLED AT THIS TIME REGARDING CRITICAL TROP LEVEL. MESSAGE LEFT FOR .
--- NOTE | 2019-04-11 18:09 | NUR ---
PATIENT TAKEN OFF FLOOR FOR SCHEDULED CT OF CHEST.
--- NOTE | 2019-04-11 19:26 | NUR ---
ANSWERING SERVICE CALLED REGARDING CRITICAL TROP LEVEL.
--- NOTE | 2019-04-11 19:31 | NUR ---
AWARE OF CRITICAL TROPONINS. NO NEW ORDERS.
[2019-04-11 20:00] VITALS: BP 123/72
[2019-04-12] VITALS: BP 114/88
--- NOTE | 2019-04-12 | NUR ---
PT. C/O BEING SOB; RESPIRATORY HERE TO GIVE PATIENT AN AEROSOL TX.
--- NOTE | 2019-04-12 03:00 | NUR ---
RESTING IN BED WITH EYES CLOSED. 02 INTACT. IV FLUIDS CONTINUE TO INFUSE ORDERED. CALL LIGHT WITHIN REACH.
--- NOTE | 2019-04-12 05:50 | NUR ---
SITTING UP IN BED; AUDIBLY WHEEZES. PT. SPITTING OUT A LARGE AMOUNT OF MUCOUS. HOB ELEVATED TO FACILATE EASE OF BREATHING. CALL LIGHT WITHIN REACH.
--- NOTE | 2019-04-12 06:05 | NUR ---
CALLED RESPIRATORY THERAPY TO GIVE PATIENT A BREATHING TX. WILMAR STATED THAT THEY WOULD BE UP SHORTLY.
[2019-04-12 06:24] LABS: BASO # 0.1 10*3/uL (0.0-0.1); BASO % 1.2 % (0.0-1.0); EOS # 0.3 10*3/uL (0.0-0.4); EOS % 5.9 % (1.0-4.0); HEMOGLOBIN 11.5 g/dl (12.0-16.0); LYMPH # 0.7 10*3/uL (1.3-4.4); LYMPH % 17.3 % (27.0-41.0); MEAN CELL VOLUME 97.5 fl (81.0-99.0); MEAN CORPUSCULAR HGB 28.8 pg (27.0-31.0); MEAN CORPUSCULAR HGB CONC 29.5 g/dl (33.0-37.0); MONO # 0.5 10*3/uL (0.1-1.0); MONO % 12.2 % (3.0-9.0); NEUT # 2.7 10*3/uL (2.3-7.9); NEUT % 62.9 % (47.0-73.0); PLATELET COUNT AUTOMATED 131 10*3/uL (130-400); RED CELL DISTRI WIDTH 16.3 % (0-14.5); WHITE BLOOD COUNT 4.3 10*3/uL (4.8-10.8)
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
[2019-04-12 06:54] LABS: ALBUMIN 2.7 gm/dl (3.1-4.5); ALKALINE PHOSPHATASE 91 U/L (45-117); BUN 13 mg/dl (7-24); CHLORIDE 103 mmol/L (98-107); CREATININE 0.69 mg/dL (0.55-1.02); PHOSPHOROUS 2.5 mg/dL (2.5-4.9); POTASSIUM 3.6 mmol/L (3.5-5.1); SGOT/AST 30 IU/L (3-35); SGPT/ALT 18 U/L (12-78); SODIUM 140 mmol/L (136-145); TOTAL PROTEIN 6.6 gm/dL (6.4-8.2)
[2019-04-12 08:00] VITALS: BP 132/74
--- NOTE | 2019-04-12 08:05 | NUR ---
PHYSICAL THERAPY Kimberly completed full report to follow recomend SNF at discharge, thank you for this referral. Angely Wise PT
--- NOTE | 2019-04-12 08:10 | NUR ---
Occupational Therapy evaluation completed on 5 with full evaluation to follow. Recommend occupational therapy per plan of care and SNF upon discharge. Thank you for this referral. Sarah Edwards OTR/l
--- NOTE | 2019-04-12 09:00 | NUR ---
Basting Marker in to talk to patient. Patient states lives at home with alone. There are no steps in the home. Physician: raman Pharmacy: [facility] Home health services: none Patient's level of ADLs: MINIMAL ASSIST Patient has working utilities: all working DME: marlene yañez Follow-up physician's appointment after d/c: will be made by hospitalist nurse director upon discharge Does patient want to access PORTAL?: no Discharge plan discussed with patient, she lives at home alone, she was having difficulty caring for herself and has been short term skilled at [facility] since March. she will return to [facility] to finish her skilled stay when medically stable for discharge, case management/neonatal social worker will follow, patient is medicare insurance and will not need a precert to return. WYATT WOO
--- NOTE | 2019-04-12 11:08 | NUR ---
MATHEW faxed paperwork for readmisison back to the facility. MATHEW will continue to follow.
[2019-04-12 12:00] VITALS: BP 111/62
--- NOTE | 2019-04-12 12:40 | NUR ---
OT NOTE Pt was seen this P.M. 1:1 for 17 minute OT session. Upon arrival pt was supine in bed. Pt identified by name and and had no complaints at this time. Pt transferred supine to sit EOB with maxA X 2. Pt then completed multiple sit to stand transfers from bed level with modA X 2 and use of w/w for UE support. Challenged pt's static standing tolernace needed for increased I in self care tasks and functional transfers, pt was able to tolerate aprox 60 seconds before sitting due to fatigue. Pt then transferred back into bed sit to supine with maxA X 2. There she was left with call light in hand, tray table in place, and bed alarm activated for safety. Continue with rec D/C plan to return to SNF. GUY Childers/Keon
--- NOTE | 2019-04-12 12:57 | NUR ---
PHYSICAL THERAPY TREATMENT TIME: 12:25 PM Patient presented to therapy in supine with head of bed elevated and persistant wheezing and 3 liters of spO2 VIA NASAL CANULA. Patient gives informed consent for treatment. Patient was identified by name and on wristband. Patient's O2 SAT was measured and recorded as 97% and pulse at 98 PRIOR TO THERAPY SESSION. B/P 111/62. Patient transferred supine to sitting at EOB with MAX A X 2. Patient sat on EOB with SBA-CGA. Patient required verbal cues for pushing off bed railing with R hand to stand. Patient completed standing tolerance at Walker with CGA for 1 minute the 1st attempt and 30' the 2nd attempt with verbal cues for locking knees into extension, pushing down on walker and upright posture. Patient became fatigued and requested to transfer back to supine in bed. Patient side-stepped up to head of bed with CGA with Walker 3 ft. total. Patient transferred sitting EOB to supine in bed with MAX A X 2. Patient was left supine in bed with head of bed elevated, call light within reach and bed alarm activated. Patient connected to wall outlet with 3 liters of spO2 VIA NASAL CANULA. Patient was 1:1 with this TUBE CUTTER OPERATOR for 22 minutes total. AMEENA COLIN TUBE CUTTER OPERATOR
[2019-04-12 16:00] VITALS: BP 106/69
[2019-04-12 20:00] VITALS: BP 108/69
--- NOTE | 2019-04-12 20:00 | NUR ---
SITTING UP ON SIDE OF BED GETTING AN AEROSOL TX. VOICES NO C/O; NO DISTRESS NOTED. CALL LIGHT WITHIN REACH.
--- NOTE | 2019-04-12 22:00 | NUR ---
BLOOD SUGAR 93. TOOK MEDICATIONS WITHOUT DIFFICULTY. VOICES NO C/O AT THIS TIME. CALL LIGHT WITHIN REACH.
[2019-04-13] VITALS: BP 137/76
--- NOTE | 2019-04-13 02:00 | NUR ---
RESTING IN BED WITH EYES CLOSED. CALL LIGHT WITHIN REACH.
--- NOTE | 2019-04-13 05:30 | NUR ---
CALLED RESPIRATORY TO GIVE PATIENT A TREATMENT.
--- NOTE | 2019-04-13 06:30 | NUR ---
BLOOD SUGAR 87; NO COVERAGE REQUIRED.
[2019-04-13 07:09] LABS: HEMATOCRIT 36.5 % (37.0-47.0); HEMOGLOBIN 10.8 g/dl (12.0-16.0); MEAN CELL VOLUME 97.1 fl (81.0-99.0); MEAN CORPUSCULAR HGB 28.7 pg (27.0-31.0); MEAN CORPUSCULAR HGB CONC 29.6 g/dl (33.0-37.0); MEAN PLATELET VOLUME 10.6 fl (9.6-12.3); PLATELET COUNT AUTOMATED 107 10*3/uL (130-400); RED BLOOD COUNT 3.76 10*6/uL (4.10-5.10); RED CELL DISTRI WIDTH 16.3 % (0-14.5); WHITE BLOOD COUNT 4.6 10*3/uL (4.8-10.8)
[2019-04-13 07:27] LABS: BUN 11 mg/dl (7-24); CHLORIDE 103 mmol/L (98-107); POTASSIUM 3.4 mmol/L (3.5-5.1); SODIUM 140 mmol/L (136-145)
[2019-04-13 07:52] LABS: TOTAL CELLS COUNTED 100 #CELLS
[2019-04-13 07:55] LABS: PLATELET SUFFICIENCY LOW (NORMAL)
[2019-04-13 08:00] VITALS: BP 136/54
--- NOTE | 2019-04-13 11:58 | NUR ---
DR HOUSE NOTIFIED VRE OF URINE
[2019-04-13 12:00] VITALS: BP 110/76
--- NOTE | 2019-04-13 12:56 | NUR ---
PHYSICIAN WAS NOTIFIED OF DR. HOLM CONSULT. RESPONSE OF NOTIFICATION WAS KEEP ON ORDERED ANTIBIOTICS AND WILL SEE HER. ANGELA KILLIAN
[2019-04-13 16:00] VITALS: BP 121/70
[2019-04-13 20:00] VITALS: BP 110/93
[2019-04-14] VITALS: BP 114/85
[2019-04-14 06:29] LABS: HEMATOCRIT 35.4 % (37.0-47.0); HEMOGLOBIN 10.5 g/dl (12.0-16.0); MEAN CELL VOLUME 98.1 fl (81.0-99.0); MEAN CORPUSCULAR HGB 29.1 pg (27.0-31.0); MEAN CORPUSCULAR HGB CONC 29.7 g/dl (33.0-37.0); PLATELET COUNT AUTOMATED 96 10*3/uL (130-400); RED BLOOD COUNT 3.61 10*6/uL (4.10-5.10); RED CELL DISTRI WIDTH 16.2 % (0-14.5); WHITE BLOOD COUNT 4.7 10*3/uL (4.8-10.8)
[2019-04-14 07:22] LABS: CREATININE 0.56 mg/dL (0.55-1.02)
[2019-04-14 07:31] LABS: ATYPICAL LYMPHS 7 % (0-0); PLATELET SUFFICIENCY LOW (NORMAL); TOTAL CELLS COUNTED 100 #CELLS
[2019-04-14 08:00] VITALS: BP 116/70
--- NOTE | 2019-04-14 09:14 | NUR ---
Left a message with regarding new consult.
--- NOTE | 2019-04-14 09:30 | NUR ---
Tylenol given for general achiness and c/o "not feeling well." Will monitor.
--- NOTE | 2019-04-14 10:30 | NUR ---
Tylenol effective. Patient comfortable no signs of distress.
[2019-04-14 12:00] VITALS: BP 112/63
--- NOTE | 2019-04-14 14:30 | NUR ---
Tylenol given for generalized achiness. Will monitor.
--- NOTE | 2019-04-14 15:25 | NUR ---
Tylenol effective. Patiens more comfortable.
[2019-04-14 16:00] VITALS: BP 116/80
--- NOTE | 2019-04-14 16:49 | NUR ---
BIPAP PLACED IN PT. ROOM, PT. STATES SHE WILL TRY TO WEAR IT AT H.[facility]. RN NOTIFIED.
[2019-04-14 20:00] VITALS: BP 99/50
--- NOTE | 2019-04-14 22:55 | NUR ---
Pt was annoyed that I woke her up for a breathing tx and she refused it. Pt also does not want to go on the BiPap. She states "they always order that for me here and I dont want it". Pt remains on room air. SpO2 93%.
--- NOTE | 2019-04-14 23:09 | NUR ---
PATIENT REFUSED TO HAVE BIPAP PUT ON.
[2019-04-15] VITALS: BP 112/69
[2019-04-15 07:13] LABS: BUN 12 mg/dl (7-24); CHLORIDE 102 mmol/L (98-107); CREATININE 0.55 mg/dL (0.55-1.02); PHOSPHOROUS 2.3 mg/dL (2.5-4.9); POTASSIUM 3.5 mmol/L (3.5-5.1); SODIUM 139 mmol/L (136-145)
--- NOTE | 2019-04-15 09:00 | NUR ---
case management visits with patient, she will return to [facility] for short term long term when medically stable, case management will follow
--- NOTE | 2019-04-15 10:15 | NUR ---
PHYSICAL THERAPY Patient seen this am 1:1 for therapy visit and was resting supine in bed upon therapist arrival. Patient identified by name / and presented with increased B LE edema. Patient reports no new c/o's at this time and was joined by OT virtual customer assistant who was present for observation only this session. Patient transfers supine to sit EOB with MOD A x 2, tolerating several minutes static EOB sit. Patient baseline SpO2 97% on RA and remained WFL's throughout entire treatment. Patient also completed several sit to stand transfers, use of wh walker standing support, MIN A x 2 and tolerated static stand for 1 minute first trial and 1 minute 27 seconds second trial. Patient then able to complete SPT to bedside chair, wh walker, MIN A, demonstrating very cautious upright posture / balance for fear of falling. Patient remained in bedside chair with call light, tray table, telephone and body alarm for safety. Will continue per POC as tolerated, total treatment time 15 minutes. Emeka Monterroso, INTRAOPERATIVE NEURO TECH
--- NOTE | 2019-04-15 10:35 | NUR ---
OT NOTE Pt was seen this A.M. 1:1 for 25 minute OT session. Upon arrival pt was supine in bed. Pt identified by name and and had no complaints at this time. Pt presented to therapy on room air and increased confusion as indicated by thinking she was at a motel. Pt's resting Spo2 was 97%. Pt transferred supine to sit EOB with maxA X 2. Pt then completed multiple sit to stand transfers from bed level with Patricia X 2 and use of w/w for UE support. Challenged pt's static standing tolerance needed for increased I in self care tasks and functional transfers and pt was able to tolerate aprox 60-90 seconds before sitting due to fatigue. Standing pivot then completed from the bed to the recliner with Patricia and use of w/w. Pt then completed multiple sit to stand transfers from chair level with patricia X 2 and verbal prompts for proper hand placement for increased I. Pt was left sitting upright in the recliner with call light in hand, tray table in place, and body alarm activated for safety. Continue with rec D/C plan to return to SNF. GUY Childers/Keon
--- NOTE | 2019-04-15 11:01 | NUR ---
MATHEW faxed updates on patient to [facility] on this date.
[2019-04-15 12:00] VITALS: BP 126/75
--- NOTE | 2019-04-15 13:30 | NUR ---
OT NOTE Pt was seen this P.M. 1:1 for second OT session consisting of 15 minutes. Upon arrival pt was sitting upright in the recliner. Pt identified by name and and had no complaints at this time other than generalized fatigue. While seated pt completed BUE towel exercises over all planes of motion for 1 X 10 to increase and restore maximum functional use in self care tasks. Pt tolerated ther ex well. Pt was left sitting upright in the recliner with call light in hand, tray table in place, and body alarm activated for safety. Continue with rec D/C plan to return to SNF. GUY Childers/Keon
[2019-04-15 16:00] VITALS: BP 139/79
[2019-04-15 20:00] VITALS: BP 138/74
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
[2019-04-16] VITALS: BP 139/72
--- NOTE | 2019-04-16 00:01 | NUR ---
PT REFUSING TO BE PLACED ON BIPAP
--- NOTE | 2019-04-16 04:02 | NUR ---
Upon discharge recommend patient to follow up for wound care in outpatient setting continue current wound care orders at discharging facility.
[2019-04-16 06:37] LABS: BUN 16 mg/dl (7-24); CHLORIDE 101 mmol/L (98-107); CREATININE 0.64 mg/dL (0.55-1.02); POTASSIUM 3.3 mmol/L (3.5-5.1); SODIUM 139 mmol/L (136-145)
--- NOTE | 2019-04-16 07:18 | NUR ---
pt not on bipap at this time
[2019-04-16 08:00] VITALS: BP 131/94
--- NOTE | 2019-04-16 09:35 | NUR ---
OT NOTE Pt was seen this A.M. 1:1 for 20 minute OT session. Upon arrival pt was supine in bed. Pt identified by name and and had no complaints at this time. Pt presented to therapy with continuous 2L-O2 via NC which she remained on throughout the entire session. Pt also presented to therapy with increased confusion as indicated by poor orientation and trying to get up by herslef to go to the kitchen and make a sandwich. Pt transferred supine to sit EOB with maxA X 2 and use of w/w for UE support. Sit to stand completed from bed level with Flory X 2 and use of w/w for UE support. Challenged pt's static standing tolernace needed for increased I in self care tasks and functional transfers, pt was able to tolerate aprox 60 seconds before sitting due to fatigue. She then completed standing pivot from the EOB to the recliner with Flory and use of w/w. Throughout pt required constant verbal prompts for safety awareness. From the low recliner chair pt completed sit to stands with modA x 2 and use of w/w with verbal prompts for proper hand placement for increased I and improved technique. Pt was left sitting upright in the recliner with call lightin hand, tray table in place, and body alarm activated for safety. COntinue with rec D/C plan to return to SNF. GUY Childers/Keon
--- NOTE | 2019-04-16 09:40 | NUR ---
PHYSICAL THERAPY TREATMENT TIME: 09:34 AM Patient presented to therapy in supine with 2 liters of spO2 via nasal canula. Patient is somewhat confused this morning. Patient was identified by name and on wristband. Patient gives informed consent for treatment. Patient performed supine to sitting at EOB with MAX A X 2. Patient sat on EOB SBA. Patient completed sit to stand transfer from EOB with MIN A X 2 and verbal cues for pushing off bed railing with one hand. Patient stood at Walker with CGA-MIN A X 1. Patient completed 3 steps with Walker and turned and sat in bedside chair with CGA-MIN A X 1. Patient sit to stand from bedside chair with MOD A X 2. Patient stood 2 times at Walker with CGA and verbal cues for locking knees into extension to prevent knee buckling, upright posture, and pushing down on handles of Walker with hands. Patient was sit to stand from bedside chair both attempts at MOD A X 2. Patient was left in bedside chair with call light within reach, chair alarm tested and attached, and O2 connected to wall outlet with 2 liters of spO2. Patient was 1:1 with this VESSEL OPERATOR for 20 minutes total. O2 RECORDED 96% AND PULSE AT 107 POST STANDING. AMEENA COLIN VESSEL OPERATOR
[2019-04-16] MEDS ORDERED: PREDNISONE5 MG PO (11:07)
[2019-04-16] MEDS ORDERED: POTASSIUM CHLO20 ME4 PO (11:07)
[2019-04-16] MEDS ORDERED: FUROSEMIDE20 M1 PO (11:07)
[2019-04-16] MEDS ORDERED: PREDNISONE10 MG PO (11:07)
--- NOTE | 2019-04-16 11:15 | NUR ---
Nutritional Support Services Note: Pt is on a cardiac diet consuming 50% of meals. Dx of severe sepsis and pneumonia. Labs: albumin 2.7. Will provide night snack to increase caloric intake and promote adequate nutrition. Will follow if needed. JUSTYNA Macias dietetc recruitment intern
--- NOTE | 2019-04-16 11:32 | NUR ---
Patient is discharged to return to [facility] via [place] at 1300. DC information faxed, NH, nursing/house steward/stewardess and family all notified.
[2019-04-16 12:00] VITALS: BP 149/84
--- NOTE | 2019-04-16 12:55 | NUR ---
PATIENT DISCHARGED BACK TO [facility] VIA AMBULANCE.
--- NOTE | 2019-04-17 07:56 | NUR ---
OCCUPATIONAL THERAPY CO-SIGN I approve of the Occupational Therapy notes written above. LEONIDES KUMARI, OTR/L
--- NOTE | 2019-04-17 08:23 | NUR ---
PHYSICAL THERAPY CO-SIGN I approve of the Physical Therapy notes written above. Angely Wise PT
== END 2019-04-16 12:58 | DRG 871 ==
LOC: ED 11:27 → 5E 14:10 → EDHOLD 14:10 → 5E 14:11
PROVIDERS: Internal Medicine; Nurse Practitioner Family; Student in an Organized Health Care Education/Training Program; ADMIT Internal Medicine
DX: A41.9 Sepsis, unspecified organism (principal); J18.9 Pneumonia, unspecified organism; G93.41 Metabolic encephalopathy; I21.4 Non-ST elevation (NSTEMI) myocardial infarction; J96.21 Acute and chronic respiratory failure with hypoxia; E87.2 Acidosis; E44.0 Moderate protein-calorie malnutrition; I50.32 Chronic diastolic (congestive) heart failure; N30.00 Acute cystitis without hematuria; Z16.21 Resistance to vancomycin; Z68.42 Body mass index [BMI] 45.0-49.9, adult; I48.11 Longstanding persistent atrial fibrillation; J45.901 Unspecified asthma with (acute) exacerbation; R65.20 Severe sepsis without septic shock; E11.65 Type 2 diabetes mellitus with hyperglycemia; M19.90 Unspecified osteoarthritis, unspecified site; I11.0 Hypertensive heart disease with heart failure; E66.01 Morbid (severe) obesity due to excess calories; E03.9 Hypothyroidism, unspecified; B96.89 Other specified bacterial agents as the cause of diseases classified elsewhere; Z51.5 Encounter for palliative care; Z66 Do not resuscitate; Z96.1 Presence of intraocular lens; Z96.659 Presence of unspecified artificial knee joint; Z88.5 Allergy status to narcotic agent; Z79.82 Long term (current) use of aspirin; Z79.899 Other long term (current) drug therapy; Z90.49 Acquired absence of other specified parts of digestive tract; Z98.49 Cataract extraction status, unspecified eye; I25.2 Old myocardial infarction; Z79.4 Long term (current) use of insulin; Z87.891 Personal history of nicotine dependence

== ENCOUNTER → 2019-07-29 | Outpatient (CLI) | payer MEDICARE ==
[~2019-07-29] MED LIST changes: +FUROSEMIDE20 M1 PO; +POTASSIUM CHLO20 ME4 PO; +VISTARIL50 MG PO; +VITAMIN D35000 UNIT PO
[2019-07-29 19:54] LABS: BASO # 0.1 10*3/uL (0.0-0.1); BASO % 0.9 % (0.0-1.0); EOS # 0.3 10*3/uL (0.0-0.4); EOS % 4.6 % (1.0-4.0); HEMATOCRIT 41.3 % (37.0-47.0); LYMPH # 1.8 10*3/uL (1.3-4.4); LYMPH % 27.2 % (27.0-41.0); MEAN CELL VOLUME 94.5 fl (81.0-99.0); MEAN CORPUSCULAR HGB 29.3 pg (27.0-31.0); MEAN PLATELET VOLUME 9.8 fl (9.6-12.3); MONO # 0.6 10*3/uL (0.1-1.0); MONO % 9.6 % (3.0-9.0); NEUT # 3.7 10*3/uL (2.3-7.9); NEUT % 57.2 % (47.0-73.0); PLATELET COUNT AUTOMATED 191 10*3/uL (130-400); RED BLOOD COUNT 4.37 10*6/uL (4.10-5.10); RED CELL DISTRI WIDTH 14.7 % (0-14.5); WHITE BLOOD COUNT 6.5 10*3/uL (4.8-10.8)
[2019-07-29 20:10] LABS: ALBUMIN 3.1 gm/dl (3.1-4.5); ALKALINE PHOSPHATASE 100 U/L (45-117); BILIRUBIN, DIRECT 0.2 mg/dL (0.0-0.2); BUN 15 mg/dl (7-24); CHLORIDE 103 mmol/L (98-107); CREATININE 0.79 mg/dL (0.55-1.02); POTASSIUM 3.9 mmol/L (3.5-5.1); SGOT/AST 18 IU/L (3-35); SGPT/ALT 17 U/L (12-78); SODIUM 139 mmol/L (136-145); THYROXINE (T4) TOTAL 9.7 ug/dl (4.8-13.9); TOTAL PROTEIN 7.1 gm/dL (6.4-8.2)
== END | disposition home or self-care (01) ==
LOC: LAB 17:58
PROVIDERS: Internal Medicine
DX: E03.9 Hypothyroidism, unspecified (principal); I48.20 Chronic atrial fibrillation, unspecified; I11.9 Hypertensive heart disease without heart failure; M05.79 Rheumatoid arthritis with rheumatoid factor of multiple sites without organ or systems involvement

== ENCOUNTER 2019-10-01 19:05 | Inpatient (IN) | payer MEDICARE ==
[~2019-10-01] VITALS: Ht 167.6 cm; Wt 120.7 kg
[2019-10-01 19:11] VITALS: BP 124/66
[2019-10-01 19:47] LABS: BASO # 0.1 10*3/uL (0.0-0.1); BASO % 0.5 % (0.0-1.0); EOS % 0.1 % (1.0-4.0); HEMATOCRIT 40.2 % (37.0-47.0); LYMPH # 1.3 10*3/uL (1.3-4.4); LYMPH % 12.5 % (27.0-41.0); MEAN CELL VOLUME 89.7 fl (81.0-99.0); MEAN CORPUSCULAR HGB 28.1 pg (27.0-31.0); MEAN CORPUSCULAR HGB CONC 31.3 g/dl (33.0-37.0); MONO # 1.1 10*3/uL (0.1-1.0); MONO % 10.1 % (3.0-9.0); NEUT % 76.5 % (47.0-73.0); PLATELET COUNT AUTOMATED 224 10*3/uL (130-400); RED BLOOD COUNT 4.48 10*6/uL (4.10-5.10); RED CELL DISTRI WIDTH 15.2 % (0-14.5); WHITE BLOOD COUNT 10.5 10*3/uL (4.8-10.8)
[2019-10-01 19:57] LABS: INTERNATIONAL NORM RATIO 1.2 (2.0-3.5)
[2019-10-01 20:04] LABS: ALKALINE PHOSPHATASE 141 U/L (45-117); BUN 17 mg/dl (7-24); CHLORIDE 104 mmol/L (98-107); CREATININE 0.78 mg/dL (0.55-1.02); POTASSIUM 3.9 mmol/L (3.5-5.1); SGOT/AST 37 IU/L (3-35); SGPT/ALT 26 U/L (12-78); SODIUM 137 mmol/L (136-145); TOTAL PROTEIN 7.4 gm/dL (6.4-8.2)
[2019-10-01 20:05] LABS: TROPONIN I < 0.015 ng/ml (<0.045)
--- NOTE | 2019-10-01 20:50 | NUR ---
PT C/O RT HIP AREA AND LFT SIDED ABDOMINAL PAIN WITH POSITIONING PTZACHARIAH PA-C NOTIFIED.
[2019-10-01 21:06] VITALS: BP 119/55
[2019-10-01 21:07] LABS: BILIRUBIN 1+; CLARITY CLOUDY (CLEAR); COLOR ORANGE (YELLOW); GLUCOSE NEGATIVE
[2019-10-01 21:08] LABS: BLOOD 1+ (NEGATIVE); KETONE NEGATIVE; LEUKO ESTERASE 2+ (NEGATIVE); NITRITE POSITIVE (NEGATIVE)
[2019-10-01 21:10] LABS: BACTERIA 4+; MUCOUS TRACE; WBC TNTC wbc/hpf (0-5)
--- NOTE | 2019-10-01 21:34 | NUR ---
NURSE TO NURSE REPORT GIVEN TO THIS RN.
--- NOTE | 2019-10-01 21:35 | NUR ---
NURSE TO NURSE REPORT GIVEN TO THIS RN.
--- NOTE | 2019-10-01 22:01 | NUR ---
OBDULIA EDMONDS AT BEDSIDE TO REASSESS PT.PT CONTINUES TO YELL IN PAIN.PT C/O PAIN TO UPPER LEFT SIDE AND ABDOMINAL AREA.
--- NOTE | 2019-10-01 22:16 | NUR ---
PT MEDICATED PER EMAR.PT REPOSITIONED IN BED.
[2019-10-01 22:55] VITALS: BP 120/63
--- NOTE | 2019-10-01 22:55 | NUR ---
PT CONTINUES TO SCREAM AND YELL IN "HELP ME PLEASE".OBDULIA STATES SHE DID NOT GET RELIEF FROM PAIN MEDICATION.OBDULIA EDMONDS NOTIFIED.PT REPOSITIONED IN BED.
[2019-10-01 23:41] VITALS: BP 103/51
[2019-10-02] VITALS (7 sets, daily range): BP systolic 98–131; BP diastolic 56–104
[2019-10-02] MEDS ORDERED: DICLOFENAC SOD100 G1 T (00:33)
[2019-10-02] MEDS ORDERED: NYSTATIN15 GM T (00:35)
--- NOTE | 2019-10-02 00:35 | NUR ---
MED REC COMPLETED WITH PATIENT AND LIST BROUGHT FROM HOME. COPY PLACED IN CHART
--- NOTE | 2019-10-02 01:04 | NUR ---
Time: 0000 A 89 year old FEMALE admitted to 5E under services of ELADIO EDMONDS DO, Pt. arrived via ambulance from ER. Chief complaint: FALL. JOSE L EARLY
--- NOTE | 2019-10-02 01:54 | NUR ---
DR. LIAO NOTIFIED OF PT'S MED REC UTD, PT WANTING PAIN MED, AND C/O DYSPHAGIA RECENTLY.
--- NOTE | 2019-10-02 05:30 | NUR ---
PT C/O PAIN AND SOB. RESPS LABORED AT 34. BP 126/104 HR 115 SAT 97% ON 3LNC. FREQUENT MOIST HEAD GROWER COUGH NOTED. WHEEZING/RHONCHI/RALES AUSCULTATED. IVF STOPPED. DR. LIAO NOTIFIED. TO COME SEE PT.
[2019-10-02 06:42] LABS: BASO # 0.1 10*3/uL (0.0-0.1); BASO % 0.5 % (0.0-1.0); EOS # 0.1 10*3/uL (0.0-0.4); EOS % 0.9 % (1.0-4.0); HEMATOCRIT 41.7 % (37.0-47.0); LYMPH # 1.3 10*3/uL (1.3-4.4); LYMPH % 11.9 % (27.0-41.0); MEAN CELL VOLUME 92.3 fl (81.0-99.0); MEAN CORPUSCULAR HGB 27.7 pg (27.0-31.0); MEAN PLATELET VOLUME 9.5 fl (9.6-12.3); NEUT # 8.1 10*3/uL (2.3-7.9); NEUT % 77.2 % (47.0-73.0); PLATELET COUNT AUTOMATED 225 10*3/uL (130-400); RED BLOOD COUNT 4.52 10*6/uL (4.10-5.10); RED CELL DISTRI WIDTH 15.4 % (0-14.5); WHITE BLOOD COUNT 10.5 10*3/uL (4.8-10.8)
[2019-10-02 07:14] LABS: BUN 16 mg/dl (7-24); CHLORIDE 103 mmol/L (98-107); CREATININE 0.75 mg/dL (0.55-1.02); SODIUM 139 mmol/L (136-145)
--- NOTE | 2019-10-02 07:52 | NUR ---
Occupational therapy order and nursing screen received. Will follow up with the patient for completion of an OT evaluation. Thank you. Jenni Watson, OTR/L
--- NOTE | 2019-10-02 08:08 | NUR ---
PHYSICAL THERAPY Screen and PT eval received will follow thank you Angely Wise PT
--- NOTE | 2019-10-02 09:00 | NUR ---
Retread Technician in to talk to patient. Patient states lives at home with alone. There are few steps in the home. Physician: Pharmacy: [facility]: none Patient's level of ADLs: MINIMAL ASSIST Patient has working utilities: all working DME: walker, scooter Follow-up physician's appointment after d/c: will be made by hospitalist nurse director upon discharge Does patient want to access PORTAL?: no Discharge plan discussed with patient, she states she lives at home alone and recently had a fall, she has a walker or scooter for ambulation and has been independent in adls, discussed with her a short term residential for 5 days of rehab and 24 hour care prior to returning home, she was hesitant but [facility]. social worker palliative care will send referral to [facility] for when patient is discharged,, patient has medicare insurance, no precert required but does require a 3 night stay, covid test is pending, case management will follow. WYATT WOO
--- NOTE | 2019-10-02 09:34 | NUR ---
FUR JOINER FAXED NEW REFERRAL TO [facility]. WILL NEED 3RD NIGHT STAY. WILL NEED PT EVAL TO COMPLETE REFERRAL.
--- NOTE | 2019-10-02 09:59 | NUR ---
SPEECH PATHOLOGY Clinical swallowing evaluation completed as per orders due to patient's reports of dysphagia. She was admitted after suffering a fall at home. Medical history includes UTI, general weakenss, CHF, HTN, sepsis, pneumonia, A-fib, bladder leakage and hypothyroidism. Patient was alert and oriented and admitted that her mouth was dry when she was trying to eat, which made it difficult to swallow. During assessment, patient displayed generalized weakness, upper extremity tremors, coughing at rest and wheezing. She displayed intact oral motor skills and adequately fitting upper and lower dentures. She is ordered a soft diet and thin liquid. She was assessed during breakfast meal. She was able to self feed and displayed no overt difficulty with any food or liquid item. Recommend she remain on present diet. No follow up treatment is warranted at this time. Results and james. were shared with patient who verbalized understanding. Refer to report in [employer] for further information. Thank you for this referral. RANDEE MCCORMACK MSCCC-MANAGER FOREIGN
--- NOTE | 2019-10-02 10:19 | NUR ---
Occupational Therapy evaluation completed on five with full evaluation to follow. Recommend occupational therapy per plan of care and SNF upon discharge. Thank you for this referral. Jenni Watson OTR/L
--- NOTE | 2019-10-02 10:20 | NUR ---
CALLED PHARMACY TO SEND
--- NOTE | 2019-10-02 10:33 | NUR ---
PHYSICAL THERAPY Physical Therapy evaluation completed on 5th floor with full evaluation to follow. Recommend physical therapy per plan of care and SNF upon discharge. Thank you for this referral. Stone Lott SPT Angely Wise PT
--- NOTE | 2019-10-02 11:31 | NUR ---
PATIENT RESTING IN BED. PATIENT STATES SHE IS VERY TIRED. VOICES NO COMPLAINTS/NEEDS. RESPIRATIONS EASY, NON LABORED. NO SIGNS OF DISTRESS. BED IN LOWEST POSITION,CALL LIGHT WITHIN REACH. BED ALARM ON.
--- NOTE | 2019-10-02 14:53 | NUR ---
PATIENT HAS BEEN ACCEPTED TO [facility]. PATIENT WILL NEED COVID RESULTS BEFORE PLACEMENT.
--- NOTE | 2019-10-02 15:43 | NUR ---
PATIENT VERY WHEEZY AND SOB. NOTIFIED DR. BLEDSOE. SEE NEW ORDERS.
--- NOTE | 2019-10-02 16:33 | NUR ---
PATIENT SITTING UP IN BED, EATING DINNER. VOICES NO COMPLAINTS. WILL CONTINUE TO MONITOR.
--- NOTE | 2019-10-02 16:54 | NUR ---
SPOKE WITH DR. BLEDSOE REGARDING PATIENT BLOOD SUGARS. PATIENT DENIES BEING A DIABETIC AND HAS NOT NEEDED COVERAGE. PER DR. BLEDSOE HES GOING TO D/C ORDERS.
[2019-10-03] VITALS: BP 122/80
--- NOTE | 2019-10-03 03:12 | NUR ---
PATIENT MEDICATED WITH TYLENOL FOR COMPLAINTS OF PAIN UNDER LEFT BREAST AREA. WILL MONITOR FOR EFFECTIVENESS. PATIENT ALSO COMPLAINING OF SOB. PRN BREATHING TREATMENT GIVEN. WILL CONTINUE TO MONITOR.
--- NOTE | 2019-10-03 04:00 | NUR ---
TYLENOL NOT EFFECTIVE. PATIENT CONTINUES TO COMPLAIN OF PAIN UNDER LEFT BREAST AREA. WILL CONTINUE TO MONITOR.
[2019-10-03 07:11] LABS: BASO % 0.3 % (0.0-1.0); EOS # 0.2 10*3/uL (0.0-0.4); EOS % 2.3 % (1.0-4.0); HEMATOCRIT 38.3 % (37.0-47.0); LYMPH # 1.1 10*3/uL (1.3-4.4); LYMPH % 11.9 % (27.0-41.0); MEAN CELL VOLUME 90.5 fl (81.0-99.0); MEAN CORPUSCULAR HGB 27.4 pg (27.0-31.0); MEAN CORPUSCULAR HGB CONC 30.3 g/dl (33.0-37.0); MEAN PLATELET VOLUME 9.6 fl (9.6-12.3); MONO # 0.8 10*3/uL (0.1-1.0); NEUT % 76.1 % (47.0-73.0); PLATELET COUNT AUTOMATED 202 10*3/uL (130-400); RED BLOOD COUNT 4.23 10*6/uL (4.10-5.10); RED CELL DISTRI WIDTH 15.4 % (0-14.5); WHITE BLOOD COUNT 9.2 10*3/uL (4.8-10.8)
--- NOTE | 2019-10-03 07:27 | NUR ---
FIELD SALES MANAGER FAXED UPDATES TO [facility]. AWAITING COVID RESULTS BEFORE ADMISSION.
[2019-10-03 07:39] LABS: BUN 16 mg/dl (7-24); CHLORIDE 100 mmol/L (98-107); CREATININE 0.63 mg/dL (0.55-1.02); POTASSIUM 3.2 mmol/L (3.5-5.1); SODIUM 140 mmol/L (136-145)
[2019-10-03 08:00] VITALS: BP 120/78
--- NOTE | 2019-10-03 08:00 | NUR ---
Neurological: awake,alert,oriented Respiratory: diminished bilaterally Breath sounds: diminished Cough: dry Cardiovascular: no problem Gastrointestinal: soft Genito/Urinary: incontinent Musculoskeketal: wound MACO POLK
--- NOTE | 2019-10-03 08:26 | NUR ---
NOTIFIED DR VALENCIA THAT PT C/O LEFT SIDED CHEST PAIN T/O NIGHT. TYLENOL NOT EFFECTIVE PER PM NURSE GIVING REPORT. DR VALENCIA STATES TO GIVE HIM A CALL IF/WHEN THE CHEST PAIN DOES RETURN. PT IS CURRENTLY LYING IN BED, RESTING. PREPARATION DEPARTMENT SUPERVISOR AT BEDSIDE PERFORMING ECHO. WILL CONTINUE TO MONITOR PT.
--- NOTE | 2019-10-03 10:10 | NUR ---
OT NOTE Pt was seen this A.M. 1:1 for 20 minute OT session. Upon arrival pt was supine in bed. Pt identified by name and and had complaints of 5/10 L flank pain. Pt presented to therapy with continuous 2L-O2 via NC which she remained on throughout the entire session. Pt transferred supine to sit EOB with modA X 2 for assist with UB and BLE's. Pt completed multiple sit to stand transfers from bed level with modA X 2 and use of w/w for UE support. Challenged pt's static standing tolerance needed for increased I self care tasks and functional transfers, pt was able to tolerate aprox 3 minutes at a time before sitting due to fatigue. Sit to stand completed from EOB with modA X 2 and use of w/w followed by standing pivot from the EOB <> bedside commode with CGA. Pt transferred on to the bedside commode with CGA and off with modA X 2. Standing pivot then completed from the EOB to the recliner with modA X 2 for inital stand and CGA while turning. Pt was left sitting upright in the recliner with call light in hand, tray table in place, and bed alarm activated for safety. Continue with rec D/C plan to SNF. EZIO Childers
--- NOTE | 2019-10-03 10:13 | NUR ---
PHYSICAL THERAPY TREATMENT TIME:OUT: 10:10 AM 22 MINUTES PRESENTATION: Patient in supine position in bed Head of bed elevated Bed alarm activated 2 liters of spO2 via nasal canula IV INFUSING Informed consent given Patient identified by name and on wristband COMPLAINTS: Patient has R sideed chest pain that she says has been on-going since fall. TRANSFERS: Supine to sitting on EOB- MAX A X 2 Scoot to EOB- MAX A X 3 SIT on EOB - SBA STS from EOB - MOD A X 2 STS from bedside commode- MOD A X 2 SPT from bed to bedside commode - MOD A X 2 TREATMENT: Standing tolerance for 3 1/2 minutes with CGA at Walker SPT- MOD A X 2 SPT in bedside chair - MIN A X 2 complaints: R sided chest pain FATIGUE CONCLUSION: Patient left in bedside chair Chair alarm tested and attached to patient Patient LEs in low position Call light within reach AMEENA COLIN PSYCHOLOGICAL EXAMINER
--- NOTE | 2019-10-03 11:50 | NUR ---
LEAK HUNTER RECEIVED CALL FROM PATIENTS NIECE/DPOA-HC DEEPIKA. SHE STATED SHE WOULD LIKE A REFERRAL SENT TO REHAB SUITES BECAUSE SHE WAS UNHAPPY WITH THE PATIENTS CARE LAST ADMISSION TO [facility]. LEAK HUNTER FAXED REFERRAL TO [facility] FOR REVIEW.
[2019-10-03 12:00] VITALS: BP 122/74
--- NOTE | 2019-10-03 14:10 | NUR ---
RESTING QUIETLY. CONSUMED LUNCH. APPITITE FAIR. PLEASANT. IS HAVING TREMOR BUT PATIENT STATED THAT IS NORMAL FOR HER. ALERT AND ORIENTED. WILL MONITOR.
--- NOTE | 2019-10-03 14:15 | NUR ---
Referral faxed to Jeane at the [facility].
--- NOTE | 2019-10-03 14:20 | NUR ---
OT NOTE Pt was seen this P.M. 1:1 for second OT session consisting of 15 minutes. Upon arrival pt was sitting upright in the recliner. Pt identified by name and and had complaints of 8/10 L breast and flank pain. Pt presented to therapy with continuous 2L-O2 via NC which she remained on throughout the entire session. Pt completed sit to stand from chair level with modA X 2 and use of w/w for UE support. Standing pivot completed from the recliner to the EOB with CGA and use of w/w. There she transferred sit to supine with modA X 2 and was left with call light in hand, tray table in place, and bed alarm activated for safety. Continue with rec D/C plan to SNF. GUY Childers/Keon
--- NOTE | 2019-10-03 14:21 | NUR ---
PHYSICAL THERAPY TREATMENT TIME: OUT 2:20 PM 10 MINUTES PRESENTATION: Patient was sitting in bedside chair eating lunch. Chair alarm attached COMPLAINTS: Patient is sore from sitting for so long. TRANSFERS: STS from bedside chair - MIN A X 2 TREATMENT: Patient SPT to EOB from low bedside chair with CGA X 2. Patient side-stepped up to head of bed with CGA. Patient transferred from Sitting EOB to supine in bed with MAX A X 2. COMPLAINTS POST SPT: NONE CONCLUSION: Patient was left in supine in bed with head of bed elevated CALL LIGHT WITHIN REACH Bed alarm activated. Head of bed elevated AMEENA COLIN AVIONICS ELECTRICAL ENGINEER
--- NOTE | 2019-10-03 15:28 | NUR ---
OT NOTE Patient is progressing towards her occupational therapy goals with improvement in functional transfers, activity tolerance, and independence with ADLs. New OT goals are as followed to reflect patient's progress- Transfers/mobility: Min Ax1 functional transfers and mobility with the FWW Balance: Fair+ static and dynamic standing balance for improved participation in self-care tasks Activity tolerance: Patient will tolerate 5 mins of activity in stance for ADL completion Grooming: Supervision grooming in stance Jenni Watson, OTR/L
[2019-10-03 16:00] VITALS: BP 125/76
--- NOTE | 2019-10-03 18:44 | NUR ---
PT SITTING UP IN BED, EATING DINNER WITH ASSISTANCE OF PATIENT ATTENDANT. RESPIRATIONS UNLABORED ON 2L NC. HOB ELEVATED. SAFETY MEASURES IN PLACE. CALL LIGHT IN REACH.
[2019-10-03 20:00] VITALS: BP 132/67
[2019-10-04] VITALS: BP 125/85
--- NOTE | 2019-10-04 01:10 | NUR ---
PATIENT AT THIS TIME REQUESTING TO SIT ON THE EDGE OF THE BED. UNABLE TO SET BED ALARM AND PATIENT STATES SHE'S TIRED OF LYING DOWN. ASKED PATIENT FOR PERMISSION TO USE CAMERA IN ROOM TO WATCH HER TO MAKE SURE THAT SHE STAYS SAFE AND DOES NOT FALL PATIENT IS A FALL RISK. PATIENT STATED IT WAS OK TO USE CAMERA. CALL LIGHT LEFT WITHIN REACH, WILL MONITOR
[2019-10-04 06:22] LABS: BUN 15 mg/dl (7-24); CHLORIDE 100 mmol/L (98-107); CREATININE 0.56 mg/dL (0.55-1.02); POTASSIUM 3.6 mmol/L (3.5-5.1); SODIUM 140 mmol/L (136-145)
--- NOTE | 2019-10-04 07:30 | NUR ---
TOOK OVER CARE OF PT AT THIS TIME. PT LYING IN BED, SLEEPING. NO S/S OF DISTRESS NOTED. RESPIRATIONS EASY AND UNLABORED ON 2L NC. HOB ELEVATED. SAFETY MEASURES IN PLACE. CALL LIGHT IN REACH.
[2019-10-04 08:00] VITALS: BP 133/80
--- NOTE | 2019-10-04 08:51 | NUR ---
pt assessment complete at this time. AM meds given , taken with ease. tolerated well.pt sitting up on side of bed, eating. will continue to monitor. call light in reach.
--- NOTE | 2019-10-04 08:52 | NUR ---
PHYSICAL THERAPY PT SITTING EOB UPON ARRIVAL. PT IDENTIFIED BY NAME AND SOB. PT AGREED TO ALL PHYSICAL THERAPY TREATMENT THIS VISIT. PT REPROTED 5/10 PAIN IN CHEST. PT SEEN 1:1 FOR 13 MINS. TOVAR AND TOVAR STUDENT PRESENT FOR TREATMENT. PT PERFORMED STS FROM EOB TO FWW AND BSC TO FEE WITH MINaX2. PT PERFORMED STS FROM FWW TOBSC AND FWW TO RECLINER WITH CGA X2 AND VC'S FOR HAND PLACEMENT. PT STAND PIVIOT TRANSFER TO BSC WITH CGA X2 AND USE OF FWW. PT GAIT TRAINED 10FTX1 WITH CGA x2 AND VC'S FOR MORTAR MAN AND SAFETY WITH DIRECTION OF WALKER. PT SITTING IN RECLINER WITH BODY ALARM ON AT END OF SESSION. PT HAD NO REPORT OF OTHER NEEDS AT END OF TREATMENT. TRENT MAE ACCOUNTS MANAGER
--- NOTE | 2019-10-04 09:01 | NUR ---
OT NOTE Pt was sitting EOB eating breakfast agreeable to 11 minute OT session. Pt identitifed by name and date of with complaints of 5/10 left breast pain . maxA to carroll socks due to fatigue and edema. Sit-stand Flory x2 with w/w for UB support followed by,Stand pivot bed to BSC with w/w at CGA. Transferring on and off bsc with w/w Flory X2. Functional mobility from bsc to other side of bed with w/w Flory x2. Pt was left in recliner finishing breakfast with alarm on and call light in reach. Continue d/c recommended to SNF. KLAUDIA Coppola/GUY Mccartney/Keon
--- NOTE | 2019-10-04 10:55 | NUR ---
PATIENT IS ACCEPTED TO [facility], NOT [facility]. MINE WIRER CONTACTED D[facility]AHC/CLAU POE AND LEFT MESSAGE FOR RETURN CALL TO SEE IF THIS IS OKAY. REFERRAL IS STILL OUT TO [facility].
--- NOTE | 2019-10-04 11:25 | NUR ---
SUGAR TRUCKER RECEIVED CALL BACK FROM PATIENTS CLAU POE. SUGAR TRUCKER EXPLAINED THE PATIENT WAS ACCEPTED AT [facility] NOT [facility]. SHE WAS UPSET SUGAR TRUCKER EXPLAINED REASONING BEHIND THE DECISION. DEEPIKA STATED TO PROCEED WITH [facility]. SUGAR TRUCKER FAXED UPDATES TO [facility]. COVID IS PENDING.
[2019-10-04 12:00] VITALS: BP 109/72
--- NOTE | 2019-10-04 12:26 | NUR ---
MARKETING TRAINEE COMPLETED HENS.
--- NOTE | 2019-10-04 12:54 | NUR ---
DR VALENCIA NOTIFIED OF NEW WOUND/SKIN TEAR TO TOP OF LEFT FOREARM. PT STATES THAT SHE OBTAINED WOUND BY PULLING OFF BANDAID. WOUND CARE ORDERS OBTAINED.
--- NOTE | 2019-10-04 13:17 | NUR ---
OCCUPATIONAL THERAPY CO-SIGN I approve of the Occupational Therapy notes written above. LEONIDES KUMARI, OTR/L
--- NOTE | 2019-10-04 14:04 | NUR ---
PHYSICAL THERAPY Nursing screen received. Patient already on PT caseload. Will continue to follow. Thank you. Gloria Rich,PT,DPT
--- NOTE | 2019-10-04 14:11 | NUR ---
PHYSICAL THERAPY CO-SIGN I approve of the Physical Therapy notes written above. ALETA YANG PT, DPT
--- NOTE | 2019-10-04 14:48 | NUR ---
OT NOTE Nursing screen received. Patient is currently on OT caseload. Will continue with POC as able. Thank you. Jenni Watson, OTR/L
[2019-10-04 16:00] VITALS: BP 111/82
--- NOTE | 2019-10-04 16:00 | NUR ---
ASSESSMENT COMPLETE. WOUND CARE PERFORMED. PT TOLERATED WELL. RESPIRATIONS UNLABORED ON 3L NC. NO S/S OF DISTRESS. CALL LIGHT IN REACH.
[2019-10-04 20:00] VITALS: BP 115/94
[2019-10-05] VITALS: BP 128/77
--- NOTE | 2019-10-05 03:20 | NUR ---
PATIENT MEDICATED WITH TYLENOL FOR C/O REINA. WILL MONITOR
--- NOTE | 2019-10-05 04:20 | NUR ---
TYLENOL APPEARS EFFECTIVE, PATIENT RESTING QUIETLY IN BED, EYES CLOSED.
[2019-10-05 08:00] VITALS: BP 126/73
[2019-10-05 12:00] VITALS: BP 135/66
--- NOTE | 2019-10-05 15:30 | NUR ---
ASSUMED CARE OF PATIENT, SITTING UP IN CHAIR. PT STATES NO NEEDS STATED AT THIS TIME
[2019-10-05 16:00] VITALS: BP 136/96
[2019-10-05 20:00] VITALS: BP 110/69
--- NOTE | 2019-10-05 20:00 | NUR ---
PATIENT VOICED NO COMPLAINTS. NO OVERT DISTRESS NOTED, RESP ARE EASY AND REGULAR. BED LOCKED IN LOWEST POSITION, CALL LIGHT WITHN REACH
[2019-10-06] VITALS: BP 136/83
[2019-10-06 06:15] LABS: BUN 14 mg/dl (7-24); CHLORIDE 101 mmol/L (98-107); CREATININE 0.52 mg/dL (0.55-1.02); POTASSIUM 3.1 mmol/L (3.5-5.1); SODIUM 138 mmol/L (136-145)
--- NOTE | 2019-10-06 07:51 | NUR ---
24 HR chart check completed.
[2019-10-06 08:00] VITALS: BP 147/84
--- NOTE | 2019-10-06 08:55 | NUR ---
REQUESTED AND RECEIVED TYLENOL PER PRN ORDER FOR COMPLAINTS OF HEADACHE RATING A 5. CALL LIGHT WITHIN REACH. WILL MONITOR
--- NOTE | 2019-10-06 09:00 | NUR ---
SITTING IN RECLINER EATING BREAKFAST. RESPIRATIONS EASY. LUNGS DIMINISHED WITH WHEEZES. PULSE OX 94% 2L. HARSH NON-PROD COUGH NOTED. CALL LIGHT WITHIN REACH. NO VOICED COMPLAINTS
--- NOTE | 2019-10-06 09:45 | NUR ---
EARLIER TYLENOL APPEARS EFFECTIVE. SLEEPING. RESPIRATIONS EASY. CALL LIGHT WITHIN REACH. BED ALARM MAINTAINED FOR SAFETY
--- NOTE | 2019-10-06 09:50 | NUR ---
DR BUSTAMANTE HERE TO ASSESS PATIENT AND DISCUSS PLAN OF CARE
[2019-10-06 12:00] VITALS: BP 107/65
--- NOTE | 2019-10-06 12:00 | NUR ---
SITTING IN RECLINER. NO DISTRESS NOTED. RESPIRATIONS EASY. O2 IN USE. CALL LIGHT WITHIN REACH. BED ALARM MAINTAINED FOR SAFETY
--- NOTE | 2019-10-06 14:00 | NUR ---
REMAINS OOB, NO DISTRESS NOTED. RESPIRATIONS EASY. O2 IN USE. CALL LIGHT WITHIN REACH. BED ALARM MAINTAINED
--- NOTE | 2019-10-06 15:20 | NUR ---
PORTABLE CXR BEING COMPLETED
[2019-10-06 16:00] VITALS: BP 117/69
[2019-10-06 20:00] VITALS: BP 142/93
--- NOTE | 2019-10-06 20:17 | NUR ---
CALLED INFORMED THAT PATIENT HAD HORRIBLE COUGHT AND SORE THROAT. STATED TO PLACE CEPACOL ORDER.
--- NOTE | 2019-10-06 21:41 | NUR ---
CEPACOL EFFECTIVE FOR COUGH
[2019-10-07] VITALS: BP 106/61
--- NOTE | 2019-10-07 05:52 | NUR ---
PATIENT GIVEN CEPACOL FOR COUGH. WILL MONITOR
[2019-10-07 08:00] VITALS: BP 148/92
--- NOTE | 2019-10-07 08:00 | NUR ---
Neurological: awake,alert,oriented Respiratory: diminished bilaterally Breath sounds: clear Cough: productive Cardiovascular: no problem Gastrointestinal: soft Genito/Urinary: incontinent Musculoskeketal: wound MACO POLK
--- NOTE | 2019-10-07 08:00 | NUR ---
PATIENT CAN ADMIT TO [facility] TODAY IF MEDICALLY STABLE.
--- NOTE | 2019-10-07 08:20 | NUR ---
PHYSICAL THERAPY Patient seen this am 1;1 for therapy visit and was sitting up in bedside chair upon theapist arrival. Patient identified by name / and reports no new c/o's at this time. OT driller's assistant was also present this morning for observation only this session as patient transfers sit to stand MIN A with very slow initial rise. Patient ambulated with use of wh walker, CGA, 20'x 2 to bathroom, demonstrating slow, cautious gait pattern. Patient need v/c to improve walker safety / navigation in tight bathroom spaces and returned to bedside chair with mild fatigue. Patient remained in chair with call light, tray table, telephone and body alarm for safety. Will continue per POC as tolerated, total treatment time 16 minutes. Emeka Monterroso, AD COMPOSITOR
--- NOTE | 2019-10-07 08:31 | NUR ---
OT NOTE Pt was sitting in recliner agreeable to 1:1 15 minute OT session. Pt identified by name and date of . Sit-stand Moises x1 with w/w for UB support. Pts balance was challenged by weight shifting in all planes with w/w at [facility]. Balance was good-. Functional mobility from recliner to bathroom at [facility] for safety with w/w. Transferring on toilet CGA with w/w, however transferring off the toilet was modA x1 due to low rise toilet. Functional mobility from bathroom to recliner CGA with w/w. Pt completed UB exercise with towel in all planes x10 reps at moderate resistance. Pt was left in recliner with alarm active and call light in reach. Continue d/c to SNF. KLAUDIA Coppola/GUY Mccartney/Keon
--- NOTE | 2019-10-07 09:30 | NUR ---
SPEECH PATHOLOGY Nursing screen completed. Patient was seen for evaluation 10/02/19. At that time she displayed no overt swallowing difficulty. Further therapy was not warranted at that time. There are no current reports of dysphagia however this dept. will be available if needs arise. RANDEE MCCORMACK MSCCC-CONTRACT RECRUITER
--- NOTE | 2019-10-07 10:00 | NUR ---
LAND SURVEYING SURVEY WORKER SPOKE WITH THE PATIENT AND EXPLAINED THAT THIS LAND SURVEYING SURVEY WORKER SPOKE WITH HER NIECE [facility]PIKA ABOUT [facility] PATIENT WAS AGREEABLE. SHALINI ASHTON NOTIFIED.
[2019-10-07] MEDS ORDERED: OMNICEF300 MG PO (10:25)
--- NOTE | 2019-10-07 10:52 | NUR ---
MARINE TOWER OPERATOR NOTIFIED OF PATIENT DISCHARGE. MARINE TOWER OPERATOR SPOKE WITH FRANCES WAN. MARINE TOWER OPERATOR ARRANGED FOR [facility] TO TRANSPORT THE PATIENT AT 1PM TO [facility]. MARINE TOWER OPERATOR NOTIFIED SANDIE TINEO, [facility], AND [facility]. MARINE TOWER OPERATOR FAXED DISCHARGE [facility].
--- NOTE | 2019-10-07 12:38 | NUR ---
Patient discharged to SNF via cart. Discharge criteria met. History and physical and discharge summary present. Nursing discharge summary complete. Physician orders included with physician dischage summary. Report given to JUSTINA PATIENT REFUSED TO HAVE DISCHARGE PHOTOS TAKEN. MACO POLK
--- NOTE | 2019-10-07 13:06 | NUR ---
REPORT CALLED TO VIVIANA AT [facility].
--- NOTE | 2019-10-07 13:06 | NUR ---
Discharge instructions reviewed with patient/family. Patient receptive and verbalizes understanding. Follow-up care arranged. Written instructions given to patient/family. ANTHONY IBARRA
--- NOTE | 2019-10-07 13:08 | NUR ---
OT NOTE Pt was sitting up in recliner, agreeable to 10 minute OT session. Pt identified by name and date of , with no complaints to date. Pt presented to OT with 2L continuous O2 via NC. Sit-stand modA x2 with w/w for UB support due to low level recliner. Pt was able to stand for 5 minutes with w/w, however was able to stand unsupported at times with CGA. Pt was left in recliner with alarm on and call light in reach Continue d/c recommended to SNF. No other task completed at this time due to pt being picked up by transport for d/c. KLAUDIA Coppola/GUY Mccartney/Keon
--- NOTE | 2019-10-08 07:42 | NUR ---
OCCUPATIONAL THERAPY CO-SIGN I approve of the Occupational Therapy notes written above. LEONIDES KUMARI, OTR/L
--- NOTE | 2019-10-08 08:03 | NUR ---
PHYSICAL THERAPY CO-SIGN I approve of the Physical Therapy notes written above. Angely Wise PT
== END 2019-10-07 13:06 | disposition other institution (70) | DRG 871 ==
LOC: ED 19:05 → 5E 23:12 → EDHOLD 23:12 → 5E 23:23
PROVIDERS: Internal Medicine; Physician Assistant; ADMIT Internal Medicine; ATTEND Internal Medicine
DX: A41.9 Sepsis, unspecified organism (principal); J96.01 Acute respiratory failure with hypoxia; I50.33 Acute on chronic diastolic (congestive) heart failure; I13.0 Hypertensive heart and chronic kidney disease with heart failure and stage 1 through stage 4 chronic kidney disease, or unspecified chronic kidney disease; N30.01 Acute cystitis with hematuria; R74.0 Nonspecific elevation of levels of transaminase and lactic acid dehydrogenase [LDH]; I48.91 Unspecified atrial fibrillation; E03.9 Hypothyroidism, unspecified; E11.65 Type 2 diabetes mellitus with hyperglycemia; E11.22 Type 2 diabetes mellitus with diabetic chronic kidney disease; N18.3 Chronic kidney disease, stage 3 (moderate); D64.9 Anemia, unspecified; E87.6 Hypokalemia; S70.922A Unspecified superficial injury of left thigh, initial encounter; S70.921A Unspecified superficial injury of right thigh, initial encounter; M19.90 Unspecified osteoarthritis, unspecified site; S30.92XA Unspecified superficial injury of abdominal wall, initial encounter; S20.102A Unspecified superficial injuries of breast, left breast, initial encounter; S80.922A Unspecified superficial injury of left lower leg, initial encounter; S80.921A Unspecified superficial injury of right lower leg, initial encounter; X58.XXXA Exposure to other specified factors, initial encounter; Z88.5 Allergy status to narcotic agent; Z79.899 Other long term (current) drug therapy; Z90.49 Acquired absence of other specified parts of digestive tract; I25.2 Old myocardial infarction; Z79.82 Long term (current) use of aspirin; Y93.89 Activity, other specified; Y92.89 Other specified places as the place of occurrence of the external cause; Y99.8 Other external cause status

== ENCOUNTER 2020-02-05 05:17 | Inpatient (IN) | payer MEDICARE ==
[~2020-02-05] VITALS: Ht 167.6 cm; Wt 117.1 kg
[~2020-02-05 05:17] MED LIST changes: +DICLOFENAC SOD100 G1 T; +NYSTATIN15 GM T
[2020-02-05 05:22] VITALS: BP 113/36
[2020-02-05 06:00] LABS: HEMATOCRIT 41.6 % (37.0-47.0); MEAN CELL VOLUME 90.4 fl (81.0-99.0); MEAN CORPUSCULAR HGB 27.8 pg (27.0-31.0); MEAN CORPUSCULAR HGB CONC 30.8 g/dl (33.0-37.0); MEAN PLATELET VOLUME 9.2 fl (9.6-12.3); PLATELET COUNT AUTOMATED 191 10*3/uL (130-400); RED CELL DISTRI WIDTH 15.4 % (0-14.5); WHITE BLOOD COUNT 6.8 10*3/uL (4.8-10.8)
[2020-02-05 06:20] LABS: ALKALINE PHOSPHATASE 128 U/L (45-117); BUN 15 mg/dl (7-24); CHLORIDE 103 mmol/L (98-107); CREATININE 0.77 mg/dL (0.55-1.02); POTASSIUM 3.5 mmol/L (3.5-5.1); SGOT/AST 16 IU/L (3-35); SGPT/ALT 14 U/L (12-78); SODIUM 141 mmol/L (136-145); TOTAL PROTEIN 7.1 gm/dL (6.4-8.2)
[2020-02-05 06:21] LABS: TROPONIN I < 0.015 ng/ml (<0.045)
[2020-02-05 07:03] LABS: ATYPICAL LYMPHS 1 % (0-0); BASOPHILS 1 % (0-1); PLATELET SUFFICIENCY NORMAL (NORMAL); TOTAL CELLS COUNTED 100 #CELLS
--- NOTE | 2020-02-05 07:11 | NUR ---
PT HAS EXCORIATION NOTED UNDER BREAST AREA, PT REPORTS SHE IS USING POWDER AT HOME TO TREAT IT.PT HAS SKIN TEAR TO LEFT ELBOW AND LEFT UPPER ARM.PT DENIES ANY OTHER WOUNDS.
[2020-02-05 07:27] LABS: BILIRUBIN Negative (Negative); BLOOD 3+ (Negative); CLARITY Cloudy (Clear); COLOR Yellow (Yellow); GLUCOSE Negative (Negative); KETONE Negative (Negative); SPECIFIC GRAVITY 1.025 (1.001-1.030)
[2020-02-05 07:28] LABS: LEUKO ESTERASE 2+ (Negative); NITRITE Positive (Negative); UROBILINOGEN 0.2 E.U./dl (0.0-1.0)
[2020-02-05 07:37] LABS: BACTERIA 4+; EPITHELIAL CELLS 0-2; MUCOUS TRACE; RBC TNTC rbc/hpf (0-2); WBC TNTC wbc/hpf (0-5)
[2020-02-05 08:45] VITALS: BP 139/82
--- NOTE | 2020-02-05 08:45 | NUR ---
A 89, admitted to , under the services of JASPER Amos DO with a diagnosis of L HIP FRACTURE. Chief complaint is L HIP FRACTURE. Patient arrived via bed from ER. Monitor applied. Initial assessment completed. Vital signs taken and recorded. JASPER AMOS DO notified of admission to the unit. Orders received. See assessment for past medical history, medications and allergies. Patient and/or family oriented to unit. [facility] visitation policy reviewed. Clothing/patient valuable form completed. ZACHARIAH ESPINOSA
--- NOTE | 2020-02-05 09:22 | NUR ---
PT GIVEN 2 MG MORPHINE VIA IVP FOR C/O PAIN TO LEFT HIP.
--- NOTE | 2020-02-05 11:13 | NUR ---
CONSULT CALLED TO ORTHO FLOOR FOR DR HEATON.
--- NOTE | 2020-02-05 11:31 | NUR ---
PT GIVEN 1 X DOSE OF MORPHINE FOR INCREASED PAIN, PER VERBAL ORDERS GIVEN BY POLI FARMER NP. WILL MONITOR FOR EFFECTIVENESS. CALL LIGHT IN REACH.
[2020-02-05 12:00] VITALS: BP 146/80
--- NOTE | 2020-02-05 12:31 | NUR ---
MORPHINE EFFECTIVE PER PT.
--- NOTE | 2020-02-05 12:56 | NUR ---
Left Message for Pt. daughter Camelia Francisco to discuss Discharge Planning. Will await Return Call.
--- NOTE | 2020-02-05 13:16 | NUR ---
NORCO GIVEN AT THIS TIME FOR C/O LEFT HIP AND LEG PAIN. WILL MONITOR FOR EFFECTIVENESS. CALL LIGHT IN REACH.
--- NOTE | 2020-02-05 15:08 | NUR ---
CONSULT CALLED FOR DR. WOLFE PER ORDER. NAIL CARE.
--- NOTE | 2020-02-05 15:46 | NUR ---
OT NOTE Occupational therapy order received and chart reviewed. Patient pending surgical intervention for a hip fracture. Will follow up with patient following orthopedic surgery and when weight bearing status and precautions are determined. Will continue to follow. Thank you for the referral. Jenni Watson OTR/L
--- NOTE | 2020-02-05 15:46 | NUR ---
PHYSICAL THERAPY Physical therapy order recieved and chart reviewed. Per orthopedic consult, patient is awaiting surgical intervention for hip fracture. Will attempt to see patient once orthopedic surgery is completed and weightbearing status is determined. thanks Tracey Park, PT DPT
[2020-02-05 16:00] VITALS: BP 101/54
--- NOTE | 2020-02-05 16:39 | NUR ---
ADMINISTERED MORPINE FOR LEFT HIP PAIN.
--- NOTE | 2020-02-05 19:35 | NUR ---
PATIENT MEDICATED WITH NORCO FOR COMPLAINS OF LEFT HIP PAIN. WILL CONTINUE TO MONITOR.
[2020-02-05 20:00] VITALS: BP 113/68
--- NOTE | 2020-02-05 20:30 | NUR ---
NORCO NOT EFFECTIVE. PATIENT CONTINUES TO YELL OUT IN PAIN. WILL CONTINUE TO MONITOR.
--- NOTE | 2020-02-05 21:24 | NUR ---
MEDICATED WITH MORPHINE FOR CONTINUES COMPLAINTS OF LEFT HIP PAIN. WILL MONITOR FOR EFFECTIVENESS.
--- NOTE | 2020-02-05 22:21 | NUR ---
MORPHINE EFFECTIVE. PATIENT RESTING QUIETLY IN BED. NO SIGNS OR SYMPTOMS OF DISTRESS NOTED. CALL LIGHT IN REACH.
[2020-02-06] VITALS (10 sets, daily range): BP systolic 90–140; BP diastolic 34–77
--- NOTE | 2020-02-06 01:28 | NUR ---
MEDICATED WITH MORPHINE FOR LEFT HIP PAIN. WILL MONITOR FOR EFFECTIVENESS.
--- NOTE | 2020-02-06 02:01 | NUR ---
MORPHINE EFFECTIVE. PATIENT IN BED SLEEPING AT THIS TIME. NO SIGNS OR SYMPTOMS OF DISTRESS NOTED. CALL LIGHT IN REACH.
--- NOTE | 2020-02-06 05:39 | NUR ---
MEDICATED WITH MORPHINE FOR COMPLAINTS OF LEFT HIP PAIN. WILL MONITOR FOR EFFECTIVENESS.
--- NOTE | 2020-02-06 06:05 | NUR ---
MORPHINE EFFECTIVE. PATIENT IN BED SLEEPING AT THIS TIME. NO SIGNS OR SYMPTOMS OF DISTRESS NOTED.
[2020-02-06 07:23] LABS: BASO % 0.5 % (0.0-1.0); EOS # 0.4 10*3/uL (0.0-0.4); EOS % 4.5 % (1.0-4.0); HEMATOCRIT 40.9 % (37.0-47.0); LYMPH # 0.7 10*3/uL (1.3-4.4); LYMPH % 9.1 % (27.0-41.0); MEAN CELL VOLUME 90.7 fl (81.0-99.0); MEAN CORPUSCULAR HGB 27.3 pg (27.0-31.0); MEAN CORPUSCULAR HGB CONC 30.1 g/dl (33.0-37.0); MEAN PLATELET VOLUME 8.8 fl (9.6-12.3); MONO # 0.6 10*3/uL (0.1-1.0); MONO % 8.2 % (3.0-9.0); NEUT % 77.3 % (47.0-73.0); PLATELET COUNT AUTOMATED 166 10*3/uL (130-400); RED BLOOD COUNT 4.51 10*6/uL (4.10-5.10); RED CELL DISTRI WIDTH 15.4 % (0-14.5); WHITE BLOOD COUNT 7.7 10*3/uL (4.8-10.8)
[2020-02-06 07:37] LABS: ACT PARTIAL THROMBO TIME 29.7 SECONDS (20.0-32.1); INTERNATIONAL NORM RATIO 1.2 (2.0-3.5)
[2020-02-06 07:52] LABS: ALBUMIN 2.6 gm/dl (3.1-4.5); ALKALINE PHOSPHATASE 175 U/L (45-117); BUN 10 mg/dl (7-24); CHLORIDE 103 mmol/L (98-107); CREATININE 0.65 mg/dL (0.55-1.02); POTASSIUM 4.1 mmol/L (3.5-5.1); SGOT/AST 147 IU/L (3-35); SGPT/ALT 89 U/L (12-78); SODIUM 139 mmol/L (136-145); TOTAL PROTEIN 6.6 gm/dL (6.4-8.2)
--- NOTE | 2020-02-06 09:45 | NUR ---
MEDICATED WITH PRN MORPHINE PER ORDER AND REQUEST FOR L HIP PAIN.
--- NOTE | 2020-02-06 09:50 | NUR ---
PHYSICAL THERAPY Chart review completed on patient today regarding status. Per orthopedic consult, patient is awaiting surgical intervention for hip fracture. Will attempt to see patient once orthopedic surgery is completed and weightbearing status is determined. thanks Tracey Park, PT DPT
--- NOTE | 2020-02-06 09:50 | NUR ---
OT NOTE Occupational therapy order received and chart reviewed. Patient pending surgical intervention for a hip fracture. Will follow up with patient following orthopedic surgery. Will continue to follow. Thank you for the referral. Jenni Watson OTR/L
--- NOTE | 2020-02-06 11:25 | NUR ---
PATIENT IS IN SURGERY.
--- NOTE | 2020-02-06 11:26 | NUR ---
OT NOTE Occupational therapy order received and chart reviewed. Patient is currently out of the room for surgery at this time. Will check back at a later time for completion of an OT evaluation. Thank you. Jenni Watson, OTR/L
--- NOTE | 2020-02-06 11:34 | NUR ---
PHYSICAL THERAPY Attempted to see patient however patient out of room and per nursing patient is in surgery. Will attempt to see patient for evaluation at a later time. thanks Tracey Park PT DPT
--- NOTE | 2020-02-06 15:29 | NUR ---
PATIENT BACK IN ROOM.
[2020-02-06 16:25] LABS: BILIRUBIN 2+ (Negative); BLOOD 1+ (Negative); CLARITY Cloudy (Clear); COLOR Orange (Yellow); GLUCOSE Negative (Negative); KETONE Negative (Negative); LEUKO ESTERASE 2+ (Negative); NITRITE Positive (Negative); SPECIFIC GRAVITY >= 1.030 (1.001-1.030)
[2020-02-06 16:38] LABS: BACTERIA 2+; MUCOUS 1+
[2020-02-06 16:44] LABS: WBC 51-100 wbc/hpf (0-5)
[2020-02-07] VITALS: BP 124/66
[2020-02-07 07:07] LABS: BASO % 0.1 % (0.0-1.0); HEMATOCRIT 38.4 % (37.0-47.0); LYMPH # 0.8 10*3/uL (1.3-4.4); MEAN CELL VOLUME 91.9 fl (81.0-99.0); MEAN CORPUSCULAR HGB 28.2 pg (27.0-31.0); MEAN CORPUSCULAR HGB CONC 30.7 g/dl (33.0-37.0); MEAN PLATELET VOLUME 9.5 fl (9.6-12.3); MONO # 0.8 10*3/uL (0.1-1.0); MONO % 6.9 % (3.0-9.0); NEUT # 9.3 10*3/uL (2.3-7.9); NEUT % 85.4 % (47.0-73.0); PLATELET COUNT AUTOMATED 145 10*3/uL (130-400); RED BLOOD COUNT 4.18 10*6/uL (4.10-5.10); RED CELL DISTRI WIDTH 15.4 % (0-14.5); WHITE BLOOD COUNT 10.9 10*3/uL (4.8-10.8)
--- NOTE | 2020-02-07 07:07 | NUR ---
24 HR chart check completed.
[2020-02-07 07:55] VITALS: BP 112/80
[2020-02-07 08:00] VITALS: BP 129/60
[2020-02-07 12:00] VITALS: BP 136/69
--- NOTE | 2020-02-07 14:15 | NUR ---
PATIENT HAVING PERIODS OF CONFUSION, REORIENTS TO PLACE AND SITUATION. REMAINS FORGETFUL AND CONFUSED TO TIME.
[2020-02-07 16:00] VITALS: BP 103/57
--- NOTE | 2020-02-07 19:00 | NUR ---
ARRIVED ON SHIFT, REPORT RECEIVED FROM OFFGOING NURSE, ASSUMED CARE OF PATIENT.
--- NOTE | 2020-02-07 19:40 | NUR ---
INTRODUCED SELF TO PATIENT, BED IN LOW POSITION, WHEEL LOCKS ENGAGED, BED ALARM ON, SIDE RAILS UP X 2 FOR TURNING AND REPOSITIONING, CALL LIGHT WITHIN REACH, NO NEEDS VOICED AT THIS TIME, WHITE BOARD UPDATED.
[2020-02-07 20:00] VITALS: BP 136/71
--- NOTE | 2020-02-07 20:04 | NUR ---
24 HR chart check completed.
--- NOTE | 2020-02-07 20:42 | NUR ---
PATIENT C/O BACK AND LEFT HIP PAIN RATES PAIN 5/10 MEDICATED WITH NORCO ORDERED PRN.
--- NOTE | 2020-02-07 21:42 | NUR ---
PATIENT REPORTS SOME RELIEF FROM NORCO GIVEN X 1 HOUR AGO RATES PAIN 3/10
[2020-02-08] VITALS: BP 112/81
--- NOTE | 2020-02-08 00:59 | NUR ---
PT C/O HEADACHE AND BACK PAIN MEDICATED WITH MORPHINE ORDERED
[2020-02-08 06:41] LABS: BASO % 0.3 % (0.0-1.0); EOS # 0.4 10*3/uL (0.0-0.4); EOS % 3.2 % (1.0-4.0); HEMATOCRIT 36.6 % (37.0-47.0); LYMPH # 1.4 10*3/uL (1.3-4.4); LYMPH % 12.1 % (27.0-41.0); MEAN CELL VOLUME 91.5 fl (81.0-99.0); MEAN CORPUSCULAR HGB 28.3 pg (27.0-31.0); MEAN CORPUSCULAR HGB CONC 30.9 g/dl (33.0-37.0); NEUT # 8.6 10*3/uL (2.3-7.9); NEUT % 74.9 % (47.0-73.0); PLATELET COUNT AUTOMATED 147 10*3/uL (130-400); RED CELL DISTRI WIDTH 15.6 % (0-14.5); WHITE BLOOD COUNT 11.5 10*3/uL (4.8-10.8)
[2020-02-08 08:00] VITALS: BP 122/67
--- NOTE | 2020-02-08 08:30 | NUR ---
PATIENT RESTING COMFORTABLY IN BED. NO DISTRESS NOTED. RESPIRATIONS EASY, REGULAR. 02 IN USE. POX 97% VIA 3LNC. A-FIB PER CM. HR 108-115. WILL CONTINUE TO MONITOR HR. PT ALERT AND ORIENTED X2. LUNGS CLEAR/DIMINISHED. BULKY DRESSING D/I TO LEFT HIP. ABDUCTOR PILLOW IN PLACE. BED ALARM MAINTAINED FOR SAFETY. CALL LIGHT WITHIN REACH.
--- NOTE | 2020-02-08 09:28 | NUR ---
PT MEDICATED WITH PO NORCO PER PRN ORDER FOR C/O LEFT HIP AND BACK PAIN. UNABLE TO RATE PAIN ON A 1/10 SCALE. WILL MONITOR EFFECTIVENESS.
--- NOTE | 2020-02-08 09:45 | NUR ---
PHYSICAL THERAPY IN TO SEE PATIENT.
--- NOTE | 2020-02-08 10:30 | NUR ---
IN TO SEE PATIENT.
--- NOTE | 2020-02-08 10:54 | NUR ---
WEB APPLICATIONS DEVELOPER DISCONTINUED PER ORDER.
--- NOTE | 2020-02-08 10:58 | NUR ---
PT MEDICATED WITH IV MORPHINE PER PRN ORDER FOR C/O LEFT HIP PAIN. WILL MONITOR EFFECTIVENESS.
--- NOTE | 2020-02-08 11:58 | NUR ---
MORPHINE APPEARS EFFECTIVE AT THIS TIME. PT RESTING QUIETLY IN BED WITH EYES CLOSED.
[2020-02-08 12:00] VITALS: BP 120/83
[2020-02-08 16:00] VITALS: BP 139/91
--- NOTE | 2020-02-08 19:00 | NUR ---
ARRIVED ON SHIFT, REPORT RECEIVED FROM OFFGOING NURSE, ASSUMED CARE OF PATIENT.
--- NOTE | 2020-02-08 19:25 | NUR ---
INTRODUCED SELF TO PATIENT, BED IN LOW POSITION, WHEEL LOCKS ENGAGED, SIDE RAILS UP X 2 FOR TURNING AND REPOSITIONING, BED ALARM ON, CALL LIGHT WITHIN REACH, NO NEEDS VOICED AT THIS TIME, SHITE BOARD UPDATED.
[2020-02-08 20:00] VITALS: BP 136/71
[2020-02-09] VITALS: BP 128/66
--- NOTE | 2020-02-09 03:03 | NUR ---
24 HR chart check completed.
[2020-02-09 06:26] LABS: BASO # 0.1 10*3/uL (0.0-0.1); BASO % 0.6 % (0.0-1.0); EOS # 0.4 10*3/uL (0.0-0.4); EOS % 3.7 % (1.0-4.0); HEMATOCRIT 36.8 % (37.0-47.0); LYMPH # 1.5 10*3/uL (1.3-4.4); LYMPH % 15.2 % (27.0-41.0); MEAN CELL VOLUME 90.4 fl (81.0-99.0); MEAN PLATELET VOLUME 9.8 fl (9.6-12.3); NEUT # 6.8 10*3/uL (2.3-7.9); NEUT % 69.7 % (47.0-73.0); PLATELET COUNT AUTOMATED 169 10*3/uL (130-400); RED BLOOD COUNT 4.07 10*6/uL (4.10-5.10); RED CELL DISTRI WIDTH 15.8 % (0-14.5); WHITE BLOOD COUNT 9.8 10*3/uL (4.8-10.8)
[2020-02-09 08:00] VITALS: BP 106/68
--- NOTE | 2020-02-09 10:45 | NUR ---
PHYSICAL THERAPY PATIENT SEEN 1:1 TODAY IN ROOM FOR THERAPY SESSION. SHE HAD SOME INCREASED CONFUSION TODAY PER NURSING STAFF BUT WAS ABLE TO FOLLOW SIMPLE INSTRUCTIONS FOR TREATMENT SESSION WITH REDIRECTION TO STAY FOCUSED ON TASK; LESS PAIN WITH MOVEMENT OF THE LLE TODAY. COMPLETED SUPINE LYING BLE THER EX : AROM AND AAROMF FOR THE LLE AND AROM FOR THE RLE FOR 3 SETS OF 10 REPS. NOTE LIMITED ROM OF THE LLE WITH PAIN REPORTED WITH HIP MOVEMENTS AND KNEE FLEXION. ATTEMPTED SUP TO SIT ON EOB WITH PATIENT BUT SHE BECAME VERY UPSET AND STARTED GRABBING AT BED RAILS AND RESISTING SITTING UP. OPTED TO WAIT UNTIL 2 THERAPY STAFF ARE AVAILABLE TO SEE HER TOMORROW TO ATTEMPT STS AND SPT. ON COMPLETION OF SESSION WAS IN BED WITH CALL LIGHT IN REACH AND BED ALARM IN PLACE. THANK YOU SVETLANA DEJESUS PT
[2020-02-09 12:00] VITALS: BP 124/65
[2020-02-09 16:00] VITALS: BP 116/79
[2020-02-09 20:00] VITALS: BP 136/58
--- NOTE | 2020-02-09 20:26 | NUR ---
WHIT GIVEN FOR COMPLAINTS OF BACK PAIN AND LEFT LEG/HIP PAIN. WILL MONITOR. CALL LIGHT IN REACH. REQUESTING TO HAVE ABDUCTOR PILLOW REMOVED, EDUCATED ON IMPORTANCE OF ITS USE AND PROPER ALIGNMENT FOLLOWING SURGERY.
--- NOTE | 2020-02-09 21:16 | NUR ---
PER PT, NORCO EFFECTIVE. PAIN HAS LESSEND PER PT. CALL LIGHT IN REACH. NO VOICED COMPLAINTS.
--- NOTE | 2020-02-09 23:08 | NUR ---
SKIN TEAR DRSGS NOTED TO BE DATED 02/06 FOR LAST CHANGE. ATTEMPTED TO PULL NEW OPTIFOAMS TO CHANGE DRSGS PER ORDERS. NONE IN WOUND CARE PYXIS ON 5E OR 4NE. WILL NOTIFY WOUND CARE NURSE IN AM. DRSGS UNABLE TO BE CHANGED AT THIS TIME.
[2020-02-10] VITALS: BP 113/80
--- NOTE | 2020-02-10 00:01 | NUR ---
YELLING OUT, ENETERED ROOM, PT STATES HER BACK SIDE WAS VERY ITCHY. ROLLED PT WITH ASSISTANCE TO RELIEVE ITCHING. COMPLAINED OF MINIMAL PAIN DURING. VOLTAREN GEL ALSO APPLIED TO LOWER BACK AT THIS TIME PER PT REQUEST OF SLIGHT BACK PAIN. ROLLED BACK, PULLED UP IN BED AND REPOSITIONED. NO FURTHER COMPLAINTS. CALL LIGHT IN REACH.
--- NOTE | 2020-02-10 01:41 | NUR ---
24HR CHART CHECK COMPLETED
--- NOTE | 2020-02-10 05:37 | NUR ---
WHIT GIVEN FOR COMPLAINTS OF LEFT LEG PAIN AT SURGICAL SITE. CALL LIGHT IN REACH. WILL MONITOR FOR EFFECTIVENESS.
--- NOTE | 2020-02-10 06:12 | NUR ---
NORCO EFFECTIVE PER PT
[2020-02-10 06:55] LABS: BASO # 0.1 10*3/uL (0.0-0.1); BASO % 0.6 % (0.0-1.0); EOS # 0.6 10*3/uL (0.0-0.4); HEMATOCRIT 35.1 % (37.0-47.0); LYMPH # 1.8 10*3/uL (1.3-4.4); LYMPH % 19.9 % (27.0-41.0); MEAN CORPUSCULAR HGB 27.7 pg (27.0-31.0); MEAN CORPUSCULAR HGB CONC 30.8 g/dl (33.0-37.0); MEAN PLATELET VOLUME 9.9 fl (9.6-12.3); MONO # 0.9 10*3/uL (0.1-1.0); MONO % 10.3 % (3.0-9.0); NEUT # 5.5 10*3/uL (2.3-7.9); NEUT % 61.3 % (47.0-73.0); PLATELET COUNT AUTOMATED 165 10*3/uL (130-400); RED CELL DISTRI WIDTH 15.7 % (0-14.5); WHITE BLOOD COUNT 8.9 10*3/uL (4.8-10.8)
[2020-02-10 07:04] LABS: BUN 15 mg/dl (7-24); CHLORIDE 100 mmol/L (98-107); CREATININE 0.52 mg/dL (0.55-1.02); POTASSIUM 3.4 mmol/L (3.5-5.1); SODIUM 137 mmol/L (136-145)
[2020-02-10 08:00] VITALS: BP 100/44; BP 137/71
--- NOTE | 2020-02-10 08:42 | NUR ---
PHYSICAL THERAPY Nursing screen received and chart reviewed. PT evaluation complete. Patient currently on PT caseload. Will continue to follow. Thank you. Gloria Rich,PT,DPT
--- NOTE | 2020-02-10 09:34 | NUR ---
Referral and Weekend Updates faxed to [facility] Attn: Jeane [phone].
--- NOTE | 2020-02-10 10:13 | NUR ---
PHYSICAL THERAPY Patient presented to therapy in supine in bed with call light within reach and head of ebd elevated with patient level of 0/10 in the L hip at rest. Patient gives informed consent for treatment. Patient was identified by name and on wristband. Patient is on 4 liters of spO2 VIA NASAL CANULA. Patient is WBAT on L LE. Patient performed supine > sitting on EOB with MAX A X 2. Patient sat on EOB with SBA. Patient completed STS from EOB with MOD A X 2. Patient required verbal cues for pushing off the bed with hands and locking her knees into extension upon standing. Patient stood 2 seperate times with the 1st attempt being < 30 sec and 2nd attempt being 90 seconds. Patient performed side to side wt shifting 2 x 20 reps each. Patient could not raise L LE off the floor in order to ambulate or perform marches. Patient unable to ambulate at this time. Patient transferred back to supine in bed with MAX A X 2. Patient was moved up to head of bed sheet and MAX A X 2. Patient was left with head of bed elevated, call light within reach and bed alarm on. Patient was 1:1 with this MECHANICAL APPRENTICE for 21 minutes total. AMEENA COLIN MECHANICAL APPRENTICE
[2020-02-10 12:00] VITALS: BP 96/57
--- NOTE | 2020-02-10 13:04 | NUR ---
OT NOTE Pt was seen this P.M. 1:1 for 20 minute OT session. Upon arrival pt was supine in bed. Pt identified by name and and had complaints of 5/10 L hip pain. Pt presented to therapy with continuous 4L-O2 via NC which she remained on throughout the entire session. Pt was able to recall and verbalize 1 out of 3 hip precautions. Pt re educated at this time. Pt transferred supine to sit EOB with maxA X 2. Pt then completed multiple sit to stand transfers from bed level with modA X 2 and use of w/w for UE support. Challenged pt's static standing tolerance needed for increased I in self care tasks and functional transfers. Pt was able to tolerate aprox 4 minutes at a time before sitting due to fatigue and pain. Attempted to complete functional mobility and pt was unable. Pt then transferred back into bed sit to supine with maxA X 2. There she was left with call light in hand, tray table in place, and bed alarm activated for safety. Continue with rec D/C plan to SNF. EZIO Childers
--- NOTE | 2020-02-10 13:27 | NUR ---
PHYSICAL THERAPY Patient presented to therapy in supine with head of bed elevated and bed alarm on. Patient reports 5/10 pain in the L LE. Patient is on 5 liters of spO2 VIA NASAL CANULA. Patient gives informed consent for treatment. Patient was identified by name and on wristband. Patient with hemiarthroplasty of the L HIP WBAT. Patient performed supine > sitting on EOB with MAX A X 2. Patient SCOOTED to EOB with MAX A X 2. Patient sat on EOB with SBA. Patient performed STS from EOB with MOD A X 2 and verbal cues for proper hand placement and for locking knees into extension upon standing. Patient standing tolerance at Walker with CGA for 4 minutes total. Patient standing tolerance for 2nd attempt was 2 minutes also with CGA at Walker. While patient stood she performed side to side wt shifting 2 x 20 each side and attempted to march in place , which she could not do. Patient was able to successfully swing the L LE back and forth in standing at the Walker. Patient was unable to ambulate at this time due to increased pain level and LE weakness. Patient completed sitting on EOB to supine in bed with MAX A X 2. Patient was left in supine in bed with head of bed elevated and bed alarm on. Patient was 1:1 with this WEALTH MANAGEMENT DIRECTOR for 17 minutes total. Patient's call light within reach and tray table near patient. 2ND ORTHO TREATMENT OF THE DAY. AMEENA COLIN WEALTH MANAGEMENT DIRECTOR
--- NOTE | 2020-02-10 13:38 | NUR ---
Pt. accepted to [facility]. Pt. can Discharge tommorow. Call Placed to Resident Phone and Spoke with Dr. Jacques. Notified of Pt. acceptance.
--- NOTE | 2020-02-10 14:22 | NUR ---
Spoke with Pt. in her Room. Notified her that She had been accepted at [facility] and can discharge tommorow. Notified Pt. Michael Denise via telephone that Pt. is accepted and Plan for discharge tommorow.
[2020-02-10 16:00] VITALS: BP 104/67
--- NOTE | 2020-02-10 18:19 | NUR ---
PHYSICAL THERAPY CO-SIGN I approve of the Physical Therapy notes written above. ALETA YANG PT, DPT
[2020-02-10 20:00] VITALS: BP 97/54
[2020-02-11] VITALS: BP 97/63
[2020-02-11 06:31] LABS: BASO # 0.1 10*3/uL (0.0-0.1); BASO % 0.6 % (0.0-1.0); EOS # 0.6 10*3/uL (0.0-0.4); HEMATOCRIT 36.7 % (37.0-47.0); LYMPH # 1.7 10*3/uL (1.3-4.4); LYMPH % 22.1 % (27.0-41.0); MEAN CORPUSCULAR HGB 27.9 pg (27.0-31.0); MEAN CORPUSCULAR HGB CONC 31.1 g/dl (33.0-37.0); MEAN PLATELET VOLUME 9.3 fl (9.6-12.3); MONO # 0.8 10*3/uL (0.1-1.0); MONO % 9.8 % (3.0-9.0); NEUT # 4.7 10*3/uL (2.3-7.9); NEUT % 59.5 % (47.0-73.0); PLATELET COUNT AUTOMATED 185 10*3/uL (130-400); RED BLOOD COUNT 4.08 10*6/uL (4.10-5.10); RED CELL DISTRI WIDTH 15.4 % (0-14.5); WHITE BLOOD COUNT 7.9 10*3/uL (4.8-10.8)
[2020-02-11 07:05] LABS: BUN 11 mg/dl (7-24); CHLORIDE 100 mmol/L (98-107); CREATININE 0.48 mg/dL (0.55-1.02); POTASSIUM 3.6 mmol/L (3.5-5.1); SODIUM 138 mmol/L (136-145)
[2020-02-11 08:00] VITALS: BP 116/58
--- NOTE | 2020-02-11 08:50 | NUR ---
OT NOTE Pt was seen this A.M. 1:1 for 25 minute OT session. Upon arrival pt was supine in bed. Pt identified by name and and had complaints of L hip and low back pain which she did not rate on 0-10 pain scale. Pt presented to therapy with continuous 4.5L-O2 via NC which she remained on throughout the entire session. Prior to activity pt was able to self recall 1 out of 3 hip precautions, pt was reeducated at this time of all 3. Pt transferred supine to sit EOB with maxA X 2. While sitting EOB two open spots were noticed on pt's back, pt's nurse notified and came to room to assess open areas. Pt completed multiple sit to stand transfers from bed level with maxA X 2 and use of w/w for UE support. Challenged pt's static standing tolerance needed for increased I in self care tasks and functional transfers. Pt was able to tolerate aprox 60 seconds the first attempt, 90 seconds second attempt, 45 seconds the third attempt, and aprox 60 seconds the last attempt before sitting due to fatigue and pain. Attempted to complete functional mobility and pt was unable to advance LLE. Pt transferred back into bed sit to supine with maxA X 2. There she was left with call light in hand, tray table in place, and bed alarm activated for safety. Continue with rec D/C plan to SNF. GUY Childers/Keon
--- NOTE | 2020-02-11 09:48 | NUR ---
PHYSICAL THERAPY Patient presented to therapy in supine with head of bed elevated and bed alarm on. Patient reports pain in the R LOW BACK area and pain in the L hip surgical site. Patient gives informed consent for treatment. Patient was identified by name and on wristband. Patient cannot give a number for her pain level. Patient performed supine > sitting on EOB with MAX A X 2. Patient scooted to EOB with MAX A X 2. Patient sat on EOB with SBA. Patient completed STS from EOB with MAX A X 2 and verbal cues for proper technique. Patient stood at Walker with CGA for 1 minute total with verbal cues for locking knees into extension and pushing down on Walker handles with hands. Patient also verbal cued for upright posture. Patient sat back onto bed wit hCGA and verba lcues for puttign hands back ont gutierrez. Patient's had two noticable open sores on the R lumber area that was causing significant pain for the patient. These open wounds were reported to FRANCES TINEO and another Nurse who she was training. FRANCES TINEO and the other Nurse came in and applied salve and dressing ot the open wounds on patient's R Lumbar area. Patien performed 3 more SEPERATE STSs from EOB with MAX A X 2 and verbal cues for hand placement. Patient performed sititng on EOB LAQs, marches, heel/toe raises x 10 reps each for strengthening the LEs. Patient transferred back to supine in bed with MAX A X 2. Patient was left in supine in bed with head of bed elevated, call ligth within reach and bed alarm on. GUY Mena was present as witness to this treatment. Patient was 1:1 with this MOUNTER SAXOPHONES for 30 minutes total. AMEENA COLIN MOUNTER SAXOPHONES
[2020-02-11] MEDS ORDERED: PREDNISONE5 MG PO (10:20)
[2020-02-11 12:00] VITALS: BP 113/61
--- NOTE | 2020-02-11 12:20 | NUR ---
Transportation arranged with [facility] to Transport with leaf size picker 2:00 p.m.
--- NOTE | 2020-02-11 14:18 | NUR ---
[facility] Discharge instructions reviewed with patient/family. Patient receptive and verbalizes understanding. Follow-up care arranged. Written instructions given to patient/family. NOMAN ADAN
--- NOTE | 2020-02-12 08:01 | NUR ---
OCCUPATIONAL THERAPY CO-SIGN I approve of the Occupational Therapy notes written above. LEONIDES KUMARI, OTR/L
--- NOTE | 2020-02-12 09:58 | NUR ---
PHYSICAL THERAPY CO-SIGN I approve of the Physical Therapy notes written above. ALETA YANG PT, DPT
== END 2020-02-11 14:18 | disposition other institution (70) | DRG 853 ==
LOC: ED 05:17 → 5E 06:55 → EDHOLD 06:55 → 5E 07:01
PROVIDERS: Emergency Medicine; Hospitalist; Orthopaedic Surgery; Registered Nurse; ADMIT Student in an Organized Health Care Education/Training Program; ATTEND Student in an Organized Health Care Education/Training Program
PROC: 0SRS0JZ Replacement of Left Hip Joint, Femoral Surface with Synthetic Substitute, Open Approach (ICD-10-PCS; principal; 2020-02-06)
PROC: 0HBRXZZ Excision of Toe Nail, External Approach (ICD-10-PCS; 2020-02-07)
PROC: 0HBRXZZ Excision of Toe Nail, External Approach (ICD-10-PCS; 2020-02-07)
PROC: 0HBRXZZ Excision of Toe Nail, External Approach (ICD-10-PCS; 2020-02-07)
PROC: 0HBRXZZ Excision of Toe Nail, External Approach (ICD-10-PCS; 2020-02-07)
PROC: 0HBRXZZ Excision of Toe Nail, External Approach (ICD-10-PCS; 2020-02-07)
PROC: 0HBRXZZ Excision of Toe Nail, External Approach (ICD-10-PCS; 2020-02-07)
PROC: 0HBRXZZ Excision of Toe Nail, External Approach (ICD-10-PCS; 2020-02-07)
PROC: 0HBRXZZ Excision of Toe Nail, External Approach (ICD-10-PCS; 2020-02-07)
PROC: 0HBRXZZ Excision of Toe Nail, External Approach (ICD-10-PCS; 2020-02-07)
PROC: 0HBRXZZ Excision of Toe Nail, External Approach (ICD-10-PCS; 2020-02-07)
DX: A41.9 Sepsis, unspecified organism (principal); S72.032A Displaced midcervical fracture of left femur, initial encounter for closed fracture; J96.01 Acute respiratory failure with hypoxia; I48.21 Permanent atrial fibrillation; N30.01 Acute cystitis with hematuria; E44.0 Moderate protein-calorie malnutrition; I50.32 Chronic diastolic (congestive) heart failure; D68.69 Other thrombophilia; Z68.41 Body mass index [BMI] 40.0-44.9, adult; Z66 Do not resuscitate; Z20.822 Contact with and (suspected) exposure to COVID-19; G50.0 Trigeminal neuralgia; E11.40 Type 2 diabetes mellitus with diabetic neuropathy, unspecified; E03.9 Hypothyroidism, unspecified; B35.1 Tinea unguium; Z96.653 Presence of artificial knee joint, bilateral; E55.9 Vitamin D deficiency, unspecified; E11.65 Type 2 diabetes mellitus with hyperglycemia; I11.0 Hypertensive heart disease with heart failure; I25.10 Atherosclerotic heart disease of native coronary artery without angina pectoris; E66.01 Morbid (severe) obesity due to excess calories; W19.XXXA Unspecified fall, initial encounter; Y93.89 Activity, other specified; Y92.89 Other specified places as the place of occurrence of the external cause; Y99.8 Other external cause status; Z79.01 Long term (current) use of anticoagulants; Z88.5 Allergy status to narcotic agent; Z90.49 Acquired absence of other specified parts of digestive tract; Z79.82 Long term (current) use of aspirin; Z79.899 Other long term (current) drug therapy

== ENCOUNTER 2020-02-17 00:30 | Emergency (ER) | payer MEDICARE ==
[~2020-02-17] VITALS: Ht 167.6 cm; Wt 109.0 kg
[2020-02-17 00:51] LABS: BASO % 0.4 % (0.0-1.0); EOS # 0.6 10*3/uL (0.0-0.4); EOS % 5.9 % (1.0-4.0); HEMATOCRIT 42.4 % (37.0-47.0); LYMPH # 1.4 10*3/uL (1.3-4.4); LYMPH % 14.7 % (27.0-41.0); MEAN CELL VOLUME 90.4 fl (81.0-99.0); MEAN CORPUSCULAR HGB 27.5 pg (27.0-31.0); MEAN CORPUSCULAR HGB CONC 30.4 g/dl (33.0-37.0); MONO # 0.8 10*3/uL (0.1-1.0); MONO % 7.9 % (3.0-9.0); NEUT # 6.7 10*3/uL (2.3-7.9); NEUT % 70.5 % (47.0-73.0); PLATELET COUNT AUTOMATED 304 10*3/uL (130-400); RED BLOOD COUNT 4.69 10*6/uL (4.10-5.10); RED CELL DISTRI WIDTH 15.6 % (0-14.5); WHITE BLOOD COUNT 9.5 10*3/uL (4.8-10.8)
[2020-02-17 01:11] LABS: ALBUMIN 2.6 gm/dl (3.1-4.5); ALKALINE PHOSPHATASE 153 U/L (45-117); BUN 12 mg/dl (7-24); CHLORIDE 95 mmol/L (98-107); CREATININE 0.65 mg/dL (0.55-1.02); POTASSIUM 3.9 mmol/L (3.5-5.1); SGOT/AST 13 IU/L (3-35); SGPT/ALT 12 U/L (12-78); SODIUM 137 mmol/L (136-145); TOTAL PROTEIN 6.9 gm/dL (6.4-8.2)
[2020-02-17 01:17] LABS: TROPONIN I < 0.015 ng/ml (<0.045)
== END 2020-02-17 02:13 | disposition other institution (70) ==
LOC: ED 00:30
PROVIDERS: Internal Medicine
DX: R07.89 Other chest pain (principal); E88.09 Other disorders of plasma-protein metabolism, not elsewhere classified; I11.0 Hypertensive heart disease with heart failure; I50.9 Heart failure, unspecified; I48.91 Unspecified atrial fibrillation; E03.9 Hypothyroidism, unspecified; Z20.822 Contact with and (suspected) exposure to COVID-19; Z88.5 Allergy status to narcotic agent; Z79.899 Other long term (current) drug therapy; Z79.82 Long term (current) use of aspirin; Z90.49 Acquired absence of other specified parts of digestive tract; Z96.653 Presence of artificial knee joint, bilateral

== ENCOUNTER 2020-04-22 12:47 | Inpatient (IN) | payer MEDICARE ==
[2020-04-22] VITALS (7 sets, daily range): BP systolic 78–125; BP diastolic 24–76
[~2020-04-22] VITALS: Wt 110.4 kg
[2020-04-22 14:20] LABS: BASO % 0.5 % (0.0-1.0); EOS % 0.5 % (1.0-4.0); HEMATOCRIT 36.9 % (37.0-47.0); LYMPH # 1.2 10*3/uL (1.3-4.4); LYMPH % 13.6 % (27.0-41.0); MEAN CELL VOLUME 93.2 fl (81.0-99.0); MEAN CORPUSCULAR HGB CONC 31.2 g/dl (33.0-37.0); MONO % 11.9 % (3.0-9.0); NEUT # 6.4 10*3/uL (2.3-7.9); NEUT % 73.3 % (47.0-73.0); PLATELET COUNT AUTOMATED 190 10*3/uL (130-400); RED BLOOD COUNT 3.96 10*6/uL (4.10-5.10); RED CELL DISTRI WIDTH 15.8 % (0-14.5); WHITE BLOOD COUNT 8.7 10*3/uL (4.8-10.8)
[2020-04-22 14:30] LABS: ACT PARTIAL THROMBO TIME 32.4 SECONDS (20.0-32.1); INTERNATIONAL NORM RATIO 1.2 (2.0-3.5)
[2020-04-22 14:37] LABS: ALBUMIN 2.8 gm/dl (3.1-4.5); ALKALINE PHOSPHATASE 97 U/L (45-117); BUN 12 mg/dl (7-24); CHLORIDE 107 mmol/L (98-107); CREATININE 0.64 mg/dL (0.55-1.02); LIPASE 36 U/L (73-393); POTASSIUM 3.8 mmol/L (3.5-5.1); SGOT/AST 18 IU/L (3-35); SGPT/ALT 10 U/L (12-78); SODIUM 140 mmol/L (136-145); TOTAL PROTEIN 6.7 gm/dL (6.4-8.2)
[2020-04-22 14:38] LABS: TROPONIN I < 0.015 ng/ml (<0.045)
[2020-04-22 14:39] LABS: CKMB 3.8 ng/ml (0.5-3.6)
[2020-04-22 17:24] LABS: BILIRUBIN 1+ (Negative); BLOOD Trace-Lysed (Negative); CLARITY Cloudy (Clear); COLOR Dark Yellow (Yellow); GLUCOSE Negative (Negative); KETONE Trace (Negative); LEUKO ESTERASE 3+ (Negative); NITRITE Positive (Negative); PH 6.5 (4.5-8.0)
[2020-04-22 17:30] LABS: BACTERIA 4+; EPITHELIAL CELLS 0-2; RBC 0-2 rbc/hpf (0-2); WBC TNTC wbc/hpf (0-5)
[2020-04-22] MEDS ORDERED: SYNTHROID,LEV175 MCG PO (17:57)
[2020-04-22] MEDS ORDERED: CARBAMAZEPINE200 M2 PO (18:45)
[2020-04-22] MEDS ORDERED: METOPROLOL25 MG PO (18:46)
[2020-04-22] MEDS ORDERED: VISTARIL25 MG PO (18:47)
[2020-04-22] MEDS ORDERED: PROVENTIL HFA6.7 GM INH (18:48)
[2020-04-22] MEDS ORDERED: HYDROCORTISON28.4 G5 T (18:49)
[2020-04-22] MEDS ORDERED: CLOTRIMAZOLE28 GM T (18:49)
[2020-04-23] VITALS: BP 119/69
[2020-04-23 06:28] LABS: BASO % 0.5 % (0.0-1.0); EOS # 0.1 10*3/uL (0.0-0.4); HEMATOCRIT 36.6 % (37.0-47.0); LYMPH # 0.8 10*3/uL (1.3-4.4); LYMPH % 12.8 % (27.0-41.0); MEAN CELL VOLUME 94.6 fl (81.0-99.0); MEAN CORPUSCULAR HGB 28.9 pg (27.0-31.0); MEAN CORPUSCULAR HGB CONC 30.6 g/dl (33.0-37.0); MEAN PLATELET VOLUME 9.3 fl (9.6-12.3); MONO # 0.7 10*3/uL (0.1-1.0); MONO % 10.1 % (3.0-9.0); NEUT # 4.9 10*3/uL (2.3-7.9); NEUT % 74.3 % (47.0-73.0); PLATELET COUNT AUTOMATED 161 10*3/uL (130-400); RED BLOOD COUNT 3.87 10*6/uL (4.10-5.10); RED CELL DISTRI WIDTH 15.9 % (0-14.5); WHITE BLOOD COUNT 6.6 10*3/uL (4.8-10.8)
[2020-04-23 06:39] LABS: ACT PARTIAL THROMBO TIME 32.5 SECONDS (20.0-32.1); INTERNATIONAL NORM RATIO 1.2 (2.0-3.5)
[2020-04-23 06:54] LABS: ALBUMIN 2.5 gm/dl (3.1-4.5); ALKALINE PHOSPHATASE 89 U/L (45-117); BUN 10 mg/dl (7-24); CHLORIDE 107 mmol/L (98-107); CREATININE 0.41 mg/dL (0.55-1.02); POTASSIUM 3.7 mmol/L (3.5-5.1); SGOT/AST 63 IU/L (3-35); SGPT/ALT 12 U/L (12-78); SODIUM 141 mmol/L (136-145); TOTAL PROTEIN 6.2 gm/dL (6.4-8.2)
[2020-04-23 08:46] VITALS: BP 133/95
[2020-04-23 12:09] VITALS: BP 149/84
[2020-04-23 16:13] VITALS: BP 133/95
[2020-04-23 20:00] VITALS: BP 115/74
[2020-04-24] VITALS: BP 126/82
[2020-04-24 08:00] VITALS: BP 135/95
[2020-04-24 12:00] VITALS: BP 153/80
[2020-04-24 16:00] VITALS: BP 145/91
[2020-04-24 20:00] VITALS: BP 108/63
[2020-04-24 21:09] VITALS: BP 109/84
[2020-04-25] VITALS: BP 101/59
[2020-04-25 06:15] LABS: BUN 6 mg/dl (7-24); CHLORIDE 101 mmol/L (98-107); CREATININE 0.41 mg/dL (0.55-1.02); POTASSIUM 3.5 mmol/L (3.5-5.1); SODIUM 139 mmol/L (136-145)
[2020-04-25 08:00] VITALS: BP 122/88
[2020-04-25] MEDS ORDERED: CEFUROXIME AXE500 MG PO (11:17)
[2020-04-25] MEDS ORDERED: HYDROCODONE-AC1 EAC1 PO (11:17)
[2020-04-25 12:00] VITALS: BP 124/72
== END 2020-04-25 14:27 | DRG 964 ==
LOC: ED 12:47 → EDHOLD 16:26 → 5E 16:26 → EDHOLD 16:42 → 5E 16:53
PROVIDERS: Internal Medicine; Physician Assistant; ADMIT Internal Medicine; ATTEND Internal Medicine
DX: S72.115A Nondisplaced fracture of greater trochanter of left femur, initial encounter for closed fracture (principal); E44.0 Moderate protein-calorie malnutrition; T79.6XXA Traumatic ischemia of muscle, initial encounter; N39.0 Urinary tract infection, site not specified; I48.91 Unspecified atrial fibrillation; I50.9 Heart failure, unspecified; I25.10 Atherosclerotic heart disease of native coronary artery without angina pectoris; Z66 Do not resuscitate; E86.0 Dehydration; Z51.5 Encounter for palliative care; Z96.653 Presence of artificial knee joint, bilateral; E03.9 Hypothyroidism, unspecified; E66.01 Morbid (severe) obesity due to excess calories; M19.90 Unspecified osteoarthritis, unspecified site; I11.0 Hypertensive heart disease with heart failure; Z20.822 Contact with and (suspected) exposure to COVID-19; I95.9 Hypotension, unspecified; E11.65 Type 2 diabetes mellitus with hyperglycemia; D64.9 Anemia, unspecified; Z96.642 Presence of left artificial hip joint; B96.20 Unspecified Escherichia coli [E. coli] as the cause of diseases classified elsewhere; Z88.6 Allergy status to analgesic agent; Z98.49 Cataract extraction status, unspecified eye; Z90.49 Acquired absence of other specified parts of digestive tract; W18.39XA Other fall on same level, initial encounter; Y93.89 Activity, other specified; Y92.098 Other place in other non-institutional residence as the place of occurrence of the external cause; Y99.8 Other external cause status

== ENCOUNTER → 2020-05-04 | Outpatient (CLI) | payer MEDICARE ==
[~2020-05-04] MED LIST changes: +CARBAMAZEPINE200 M2 PO; +CEFUROXIME AXE500 MG PO; +CLOTRIMAZOLE28 GM T; +HYDROCORTISON28.4 G5 T; +METOPROLOL25 MG PO; +PROVENTIL HFA6.7 GM INH; +SYNTHROID,LEV175 MCG PO; +VISTARIL25 MG PO
== END | disposition home or self-care (01) ==
LOC: ORTHO 00:18
PROVIDERS: ATTEND Orthopaedic Surgery
DX: S72.002A Fracture of unspecified part of neck of left femur, initial encounter for closed fracture (principal); X58.XXXA Exposure to other specified factors, initial encounter; Y93.89 Activity, other specified; Y92.89 Other specified places as the place of occurrence of the external cause; Y99.8 Other external cause status

== ENCOUNTER 2020-08-09 00:40 | Inpatient (IN) | payer MEDICARE ==
[~2020-08-09] VITALS: Ht 167.6 cm; Wt 106.2 kg
[2020-08-09] VITALS (8 sets, daily range): BP systolic 89–131; BP diastolic 39–81
[2020-08-09 01:00] LABS: BASO % 0.6 % (0.0-1.0); EOS # 0.3 10*3/uL (0.0-0.4); EOS % 4.5 % (1.0-4.0); HEMATOCRIT 40.5 % (37.0-47.0); LYMPH # 1.5 10*3/uL (1.3-4.4); MEAN CELL VOLUME 95.3 fl (81.0-99.0); MEAN CORPUSCULAR HGB 28.7 pg (27.0-31.0); MEAN CORPUSCULAR HGB CONC 30.1 g/dl (33.0-37.0); MEAN PLATELET VOLUME 9.3 fl (9.6-12.3); MONO # 0.7 10*3/uL (0.1-1.0); MONO % 9.2 % (3.0-9.0); NEUT # 4.6 10*3/uL (2.3-7.9); NEUT % 64.3 % (47.0-73.0); PLATELET COUNT AUTOMATED 191 10*3/uL (130-400); RED BLOOD COUNT 4.25 10*6/uL (4.10-5.10); RED CELL DISTRI WIDTH 15.9 % (0-14.5); WHITE BLOOD COUNT 7.1 10*3/uL (4.8-10.8)
[2020-08-09 01:32] LABS: ALBUMIN 3.1 gm/dl (3.1-4.5); ALKALINE PHOSPHATASE 127 U/L (45-117); BUN 19 mg/dl (7-24); CHLORIDE 107 mmol/L (98-107); CREATININE 0.76 mg/dL (0.55-1.02); POTASSIUM 3.9 mmol/L (3.5-5.1); SGOT/AST 12 IU/L (3-35); SGPT/ALT 11 U/L (12-78); SODIUM 139 mmol/L (136-145); TOTAL PROTEIN 7.1 gm/dL (6.4-8.2)
[2020-08-09 01:39] LABS: TROPONIN I < 0.015 ng/ml (<0.045)
[2020-08-09 04:19] LABS: BASO % 0.4 % (0.0-1.0); EOS # 0.2 10*3/uL (0.0-0.4); EOS % 2.3 % (1.0-4.0); HEMATOCRIT 40.8 % (37.0-47.0); LYMPH % 10.3 % (27.0-41.0); MEAN CORPUSCULAR HGB 28.9 pg (27.0-31.0); MEAN CORPUSCULAR HGB CONC 30.1 g/dl (33.0-37.0); MEAN PLATELET VOLUME 9.4 fl (9.6-12.3); MONO # 0.7 10*3/uL (0.1-1.0); MONO % 7.7 % (3.0-9.0); NEUT # 7.6 10*3/uL (2.3-7.9); NEUT % 78.8 % (47.0-73.0); PLATELET COUNT AUTOMATED 179 10*3/uL (130-400); RED BLOOD COUNT 4.25 10*6/uL (4.10-5.10); RED CELL DISTRI WIDTH 15.9 % (0-14.5); WHITE BLOOD COUNT 9.6 10*3/uL (4.8-10.8)
[2020-08-09 04:42] LABS: BUN 19 mg/dl (7-24); CHLORIDE 106 mmol/L (98-107); POTASSIUM 3.8 mmol/L (3.5-5.1); SODIUM 137 mmol/L (136-145)
[2020-08-09 04:47] LABS: FREE T4 1.03 ng/dl (0.76-1.46)
[2020-08-09] MEDS ORDERED: OXYBUTYNIN5 MG PO (04:56)
[2020-08-09] MEDS ORDERED: HYDROCODONE-AC1 EAC1 PO (04:56)
[2020-08-09] MEDS ORDERED: SERTRALINE HYDR25 MG PO (04:57)
[2020-08-09] MEDS ORDERED: TYLENOL325 M1 PO (04:58)
== END 2020-08-09 17:33 | disposition home or self-care (01) | DRG 392 ==
LOC: ED 00:40 → EDHOLD 03:13 → 5E 03:28
PROVIDERS: Emergency Medicine; Internal Medicine; ADMIT Internal Medicine; ATTEND Internal Medicine
DX: K21.9 Gastro-esophageal reflux disease without esophagitis (principal); R65.10 Systemic inflammatory response syndrome (SIRS) of non-infectious origin without acute organ dysfunction; E03.9 Hypothyroidism, unspecified; I48.91 Unspecified atrial fibrillation; E11.9 Type 2 diabetes mellitus without complications; M19.90 Unspecified osteoarthritis, unspecified site; I25.10 Atherosclerotic heart disease of native coronary artery without angina pectoris; Z66 Do not resuscitate; Z51.5 Encounter for palliative care; R00.0 Tachycardia, unspecified; R06.82 Tachypnea, not elsewhere classified; R74.8 Abnormal levels of other serum enzymes; E55.9 Vitamin D deficiency, unspecified; I50.9 Heart failure, unspecified; Z96.653 Presence of artificial knee joint, bilateral; I11.0 Hypertensive heart disease with heart failure; E66.01 Morbid (severe) obesity due to excess calories; Z88.5 Allergy status to narcotic agent; Z90.49 Acquired absence of other specified parts of digestive tract; Z98.49 Cataract extraction status, unspecified eye; Z80.8 Family history of malignant neoplasm of other organs or systems; Z68.37 Body mass index [BMI] 37.0-37.9, adult

== ENCOUNTER 2021-01-10 09:43 | Inpatient (IN) | payer MEDICARE ==
[~2021-01-10] VITALS: Ht 167.6 cm; Wt 96.3 kg
[~2021-01-10 09:43] MED LIST changes: +CLOTRIMAZOLE45 G1 T; +METHENAMINE HIPP1 G1 PO; +OXYBUTYNIN5 MG PO; +SERTRALINE HYDR25 MG PO; +TYLENOL325 M1 PO
[2021-01-10 09:54] VITALS: BP 168/90
[2021-01-10] MEDS ORDERED: ASPIRIN81 M1 PO (10:04)
[2021-01-10] MEDS ORDERED: CARBATROL100 MG PO (10:04)
[2021-01-10] MEDS ORDERED: PROAIR RESPICL90 MCG INH (10:04)
[2021-01-10] MEDS ORDERED: CLOTRIMAZOLE45 G1 T (10:05)
[2021-01-10] MEDS ORDERED: ALA-CORT28.4 GM T (10:06)
[2021-01-10] MEDS ORDERED: HYDROCODON-ACE1 EACH PO (10:06)
[2021-01-10] MEDS ORDERED: HYDROXYZINE PAM25 M1 PO (10:09)
[2021-01-10] MEDS ORDERED: LASIX40 MG PO (10:09)
[2021-01-10] MEDS ORDERED: METOPROLOL SUCC25 M2 PO (10:10)
[2021-01-10] MEDS ORDERED: METHENAMINE HIPP1 G1 PO (10:10)
[2021-01-10] MEDS ORDERED: LEVOTHYROXINE175 MCG PO (10:10)
[2021-01-10] MEDS ORDERED: PANTOPRAZOLE SO40 MG PO (10:11)
[2021-01-10] MEDS ORDERED: OXYBUTYNIN5 MG PO (10:11)
[2021-01-10] MEDS ORDERED: POTASSIUM CHLO10 MEQ PO (10:11)
[2021-01-10] MEDS ORDERED: PREDNISONE5 MG PO (10:12)
[2021-01-10] MEDS ORDERED: SERTRALINE HYDR25 MG PO (10:12)
[2021-01-10] MEDS ORDERED: TYLENOL325 M2 PO (10:12)
[2021-01-10] MEDS ORDERED: VITAMIN D3125 MC1 PO (10:13)
[2021-01-10] MEDS ORDERED: VOLTAREN ARTHRI20 GM T (10:13)
[2021-01-10] MEDS ORDERED: XARE20MG PO (10:14)
[2021-01-10 11:05] LABS: HEMATOCRIT 46.4 % (37.0-47.0); MEAN CELL VOLUME 93.4 fl (81.0-99.0); MEAN PLATELET VOLUME 10.1 fl (9.6-12.3); PLATELET COUNT AUTOMATED 180 10*3/uL (130-400); RED BLOOD COUNT 4.97 10*6/uL (4.10-5.10); RED CELL DISTRI WIDTH 14.6 % (0-14.5); WHITE BLOOD COUNT 7.9 10*3/uL (4.8-10.8)
[2021-01-10 11:05] LABS: BILIRUBIN 2+ (Negative); BLOOD Trace-Lysed (Negative); CLARITY Turbid (Clear); COLOR Orange (Yellow); GLUCOSE Negative (Negative); KETONE Trace (Negative); LEUKO ESTERASE 2+ (Negative); NITRITE Positive (Negative); SPECIFIC GRAVITY >= 1.030 (1.001-1.030)
[2021-01-10 11:25] LABS: ALBUMIN 2.6 gm/dl (3.1-4.5); ALKALINE PHOSPHATASE 178 U/L (45-117); BUN 17 mg/dl (7-24); CHLORIDE 101 mmol/L (98-107); CREATININE 0.98 mg/dL (0.55-1.02); PLATELET SUFFICIENCY NORMAL (NORMAL); POTASSIUM 3.2 mmol/L (3.5-5.1); SCHISTOCYTES FEW; SGOT/AST 42 IU/L (3-35); SGPT/ALT 44 U/L (12-78); SODIUM 136 mmol/L (136-145); TOTAL CELLS COUNTED 100 #CELLS; TOTAL PROTEIN 7.3 gm/dL (6.4-8.2)
[2021-01-10 11:42] LABS: WBC 41-50 wbc/hpf (0-5)
[2021-01-10 11:43] LABS: BACTERIA 3+
[2021-01-10 12:05] VITALS: BP 116/74
[2021-01-10 15:00] VITALS: BP 116/53
[2021-01-10 20:00] VITALS: BP 104/63
[2021-01-11] VITALS: BP 108/66
[2021-01-11 06:01] LABS: ALBUMIN 2.1 gm/dl (3.1-4.5); ALKALINE PHOSPHATASE 133 U/L (45-117); BUN 22 mg/dl (7-24); CHLORIDE 103 mmol/L (98-107); CREATININE 0.69 mg/dL (0.55-1.02); POTASSIUM 3.9 mmol/L (3.5-5.1); SGOT/AST 22 IU/L (3-35); SGPT/ALT 33 U/L (12-78); SODIUM 137 mmol/L (136-145); TOTAL PROTEIN 6.4 gm/dL (6.4-8.2)
[2021-01-11 06:05] LABS: BASO % 0.1 % (0.0-1.0); EOS # 0.1 10*3/uL (0.0-0.4); EOS % 1.1 % (1.0-4.0); HEMATOCRIT 39.5 % (37.0-47.0); LYMPH # 0.7 10*3/uL (1.3-4.4); LYMPH % 9.2 % (27.0-41.0); MEAN CELL VOLUME 93.6 fl (81.0-99.0); MEAN CORPUSCULAR HGB 28.9 pg (27.0-31.0); MEAN CORPUSCULAR HGB CONC 30.9 g/dl (33.0-37.0); MONO # 0.4 10*3/uL (0.1-1.0); MONO % 4.9 % (3.0-9.0); NEUT # 6.4 10*3/uL (2.3-7.9); NEUT % 84.3 % (47.0-73.0); PLATELET COUNT AUTOMATED 168 10*3/uL (130-400); RED BLOOD COUNT 4.22 10*6/uL (4.10-5.10); RED CELL DISTRI WIDTH 14.7 % (0-14.5); WHITE BLOOD COUNT 7.6 10*3/uL (4.8-10.8)
[2021-01-11 08:00] VITALS: BP 101/50
[2021-01-11 12:57] VITALS: BP 106/54
[2021-01-11 16:00] VITALS: BP 117/67
[2021-01-11 20:00] VITALS: BP 96/56
[2021-01-12] VITALS: BP 119/65
[2021-01-12 06:07] LABS: ALBUMIN 2.2 gm/dl (3.1-4.5); ALKALINE PHOSPHATASE 115 U/L (45-117); BUN 19 mg/dl (7-24); CHLORIDE 102 mmol/L (98-107); CREATININE 0.51 mg/dL (0.55-1.02); POTASSIUM 4.2 mmol/L (3.5-5.1); SGOT/AST 12 IU/L (3-35); SGPT/ALT 27 U/L (12-78); SODIUM 136 mmol/L (136-145); TOTAL PROTEIN 6.5 gm/dL (6.4-8.2)
[2021-01-12 06:17] LABS: BASO % 0.1 % (0.0-1.0); EOS # 0.2 10*3/uL (0.0-0.4); EOS % 2.3 % (1.0-4.0); HEMATOCRIT 36.5 % (37.0-47.0); LYMPH # 1.3 10*3/uL (1.3-4.4); LYMPH % 16.7 % (27.0-41.0); MEAN CELL VOLUME 95.3 fl (81.0-99.0); MEAN CORPUSCULAR HGB 29.5 pg (27.0-31.0); MEAN PLATELET VOLUME 10.2 fl (9.6-12.3); MONO # 0.6 10*3/uL (0.1-1.0); MONO % 7.3 % (3.0-9.0); NEUT # 5.8 10*3/uL (2.3-7.9); NEUT % 73.1 % (47.0-73.0); PLATELET COUNT AUTOMATED 180 10*3/uL (130-400); RED BLOOD COUNT 3.83 10*6/uL (4.10-5.10); RED CELL DISTRI WIDTH 14.6 % (0-14.5); WHITE BLOOD COUNT 7.9 10*3/uL (4.8-10.8)
[2021-01-12 08:00] VITALS: BP 122/64
[2021-01-12 12:00] VITALS: BP 110/62
[2021-01-12 16:00] VITALS: BP 119/54
[2021-01-12 20:00] VITALS: BP 153/94
[2021-01-13 06:31] LABS: BASO % 0.3 % (0.0-1.0); EOS # 0.3 10*3/uL (0.0-0.4); EOS % 4.2 % (1.0-4.0); HEMATOCRIT 36.7 % (37.0-47.0); LYMPH # 1.9 10*3/uL (1.3-4.4); LYMPH % 23.6 % (27.0-41.0); MEAN CELL VOLUME 92.4 fl (81.0-99.0); MEAN CORPUSCULAR HGB 28.7 pg (27.0-31.0); MEAN CORPUSCULAR HGB CONC 31.1 g/dl (33.0-37.0); MEAN PLATELET VOLUME 9.9 fl (9.6-12.3); MONO # 0.6 10*3/uL (0.1-1.0); MONO % 7.5 % (3.0-9.0); NEUT % 63.8 % (47.0-73.0); PLATELET COUNT AUTOMATED 208 10*3/uL (130-400); RED BLOOD COUNT 3.97 10*6/uL (4.10-5.10); RED CELL DISTRI WIDTH 14.2 % (0-14.5); WHITE BLOOD COUNT 7.8 10*3/uL (4.8-10.8)
[2021-01-13 07:09] LABS: ALBUMIN 2.2 gm/dl (3.1-4.5); BUN 13 mg/dl (7-24); CHLORIDE 103 mmol/L (98-107); CREATININE 0.46 mg/dL (0.55-1.02); POTASSIUM 3.9 mmol/L (3.5-5.1); SGOT/AST 11 IU/L (3-35); SODIUM 137 mmol/L (136-145)
[2021-01-13 07:14] LABS: ALKALINE PHOSPHATASE 104 U/L (45-117); SGPT/ALT 23 U/L (12-78); TOTAL PROTEIN 6.3 gm/dL (6.4-8.2)
[2021-01-13 08:00] VITALS: BP 137/67
[2021-01-13] MEDS ORDERED: NYSTATIN CREAM15 GM T (11:32)
[2021-01-13] MEDS ORDERED: DOXYCYCLINE HY100 M3 PO (11:32)
[2021-01-13 12:00] VITALS: BP 95/50
== END 2021-01-13 13:59 | DRG 871 ==
LOC: ED 09:43 → EDHOLD 12:05 → 4E 12:05
PROVIDERS: Registered Nurse; Student in an Organized Health Care Education/Training Program; ADMIT Emergency Medicine; ATTEND Emergency Medicine
DX: A41.9 Sepsis, unspecified organism (principal); J96.01 Acute respiratory failure with hypoxia; G93.41 Metabolic encephalopathy; E44.0 Moderate protein-calorie malnutrition; N30.00 Acute cystitis without hematuria; I50.32 Chronic diastolic (congestive) heart failure; Z20.822 Contact with and (suspected) exposure to COVID-19; E87.6 Hypokalemia; E80.6 Other disorders of bilirubin metabolism; R65.20 Severe sepsis without septic shock; E11.65 Type 2 diabetes mellitus with hyperglycemia; I11.0 Hypertensive heart disease with heart failure; I48.91 Unspecified atrial fibrillation; E03.9 Hypothyroidism, unspecified; Z90.49 Acquired absence of other specified parts of digestive tract; Z82.49 Family history of ischemic heart disease and other diseases of the circulatory system; Z80.0 Family history of malignant neoplasm of digestive organs; Z79.1 Long term (current) use of non-steroidal anti-inflammatories (NSAID); Z79.51 Long term (current) use of inhaled steroids; Z88.5 Allergy status to narcotic agent; Z88.8 Allergy status to other drugs, medicaments and biological substances; Z68.34 Body mass index [BMI] 34.0-34.9, adult

== ENCOUNTER 2021-01-16 11:57 | Emergency (ER) | payer MEDICARE ==
[~2021-01-16] VITALS: Ht 167.6 cm; Wt 103.9 kg
[~2021-01-16 11:57] MED LIST changes: +ALA-CORT28.4 GM T; +ASPIRIN81 M1 PO; +CARBATROL100 MG PO; +DOXYCYCLINE HY100 M3 PO; +HYDROCODON-ACE1 EACH PO; +HYDROXYZINE PAM25 M1 PO; +LASIX40 MG PO; +LEVOTHYROXINE175 MCG PO; +NYSTATIN CREAM15 GM T; +PROAIR RESPICL90 MCG INH; +TYLENOL325 M2 PO; +VITAMIN D3125 MC1 PO; +VOLTAREN ARTHRI20 GM T
[2021-01-16 12:43] LABS: BASO # 0.1 10*3/uL (0.0-0.1); BASO % 0.8 % (0.0-1.0); EOS # 0.7 10*3/uL (0.0-0.4); EOS % 7.2 % (1.0-4.0); HEMATOCRIT 43.1 % (37.0-47.0); LYMPH # 1.4 10*3/uL (1.3-4.4); MEAN CELL VOLUME 92.7 fl (81.0-99.0); MEAN CORPUSCULAR HGB CONC 31.3 g/dl (33.0-37.0); MEAN PLATELET VOLUME 9.3 fl (9.6-12.3); MONO # 0.8 10*3/uL (0.1-1.0); MONO % 8.7 % (3.0-9.0); NEUT # 6.4 10*3/uL (2.3-7.9); NEUT % 66.5 % (47.0-73.0); PLATELET COUNT AUTOMATED 301 10*3/uL (130-400); RED BLOOD COUNT 4.65 10*6/uL (4.10-5.10); RED CELL DISTRI WIDTH 14.7 % (0-14.5); WHITE BLOOD COUNT 9.6 10*3/uL (4.8-10.8)
[2021-01-16 12:55] LABS: ACT PARTIAL THROMBO TIME 31.2 SECONDS (20.0-32.1); INTERNATIONAL NORM RATIO 1.1 (2.0-3.5)
[2021-01-16 12:59] LABS: ALBUMIN 2.7 gm/dl (3.1-4.5); ALKALINE PHOSPHATASE 108 U/L (45-117); BUN 15 mg/dl (7-24); CHLORIDE 96 mmol/L (98-107); POTASSIUM 4.2 mmol/L (3.5-5.1); SGOT/AST 15 IU/L (3-35); SGPT/ALT 21 U/L (12-78); SODIUM 136 mmol/L (136-145); TOTAL PROTEIN 7.1 gm/dL (6.4-8.2)
== END 2021-01-16 17:23 ==
LOC: ED 11:57
PROVIDERS: Emergency Medicine
DX: I48.20 Chronic atrial fibrillation, unspecified (principal); J90 Pleural effusion, not elsewhere classified; R06.02 Shortness of breath; E11.9 Type 2 diabetes mellitus without complications; M19.90 Unspecified osteoarthritis, unspecified site; I11.0 Hypertensive heart disease with heart failure; I50.9 Heart failure, unspecified; I25.10 Atherosclerotic heart disease of native coronary artery without angina pectoris; Z79.82 Long term (current) use of aspirin; Z79.899 Other long term (current) drug therapy; Z90.49 Acquired absence of other specified parts of digestive tract; Z98.890 Other specified postprocedural states; Z88.5 Allergy status to narcotic agent; Z88.6 Allergy status to analgesic agent

== ENCOUNTER 2021-02-17 18:11 | Emergency (ER) | payer MEDICARE ==
[~2021-02-17] VITALS: Ht 167.6 cm; Wt 77.1 kg
[~2021-02-17 18:11] MED LIST changes: +AUGMENTIN 875875 MG PO; +FLUCONAZOLE100 MG PO; +PROTONIX40 M2 PEG
[2021-02-17 20:12] LABS: BASO % 0.2 % (0.0-1.0); EOS # 0.1 10*3/uL (0.0-0.4); EOS % 0.6 % (1.0-4.0); HEMATOCRIT 40.8 % (37.0-47.0); LYMPH # 0.8 10*3/uL (1.3-4.4); LYMPH % 6.2 % (27.0-41.0); MEAN CELL VOLUME 94.2 fl (81.0-99.0); MEAN CORPUSCULAR HGB 29.8 pg (27.0-31.0); MEAN CORPUSCULAR HGB CONC 31.6 g/dl (33.0-37.0); MEAN PLATELET VOLUME 9.6 fl (9.6-12.3); MONO # 0.5 10*3/uL (0.1-1.0); MONO % 4.1 % (3.0-9.0); NEUT # 11.2 10*3/uL (2.3-7.9); NEUT % 87.4 % (47.0-73.0); PLATELET COUNT AUTOMATED 252 10*3/uL (130-400); RED BLOOD COUNT 4.33 10*6/uL (4.10-5.10); RED CELL DISTRI WIDTH 16.9 % (0-14.5); WHITE BLOOD COUNT 12.9 10*3/uL (4.8-10.8)
[2021-02-17 20:25] LABS: ACT PARTIAL THROMBO TIME 30.6 SECONDS (20.0-32.1); INTERNATIONAL NORM RATIO 1.1 (2.0-3.5)
[2021-02-17 20:28] LABS: ALBUMIN 2.1 gm/dl (3.1-4.5); ALKALINE PHOSPHATASE 435 U/L (45-117); BUN 18 mg/dl (7-24); CHLORIDE 98 mmol/L (98-107); CREATININE 0.58 mg/dL (0.55-1.02); LIPASE 36 U/L (73-393); SGOT/AST 277 IU/L (3-35); SGPT/ALT 285 U/L (12-78); SODIUM 133 mmol/L (136-145); TOTAL PROTEIN 6.3 gm/dL (6.4-8.2)
[2021-02-17 21:52] LABS: BILIRUBIN Negative (Negative); BLOOD Negative (Negative); CLARITY Clear (Clear); COLOR Yellow (Yellow); GLUCOSE Negative (Negative); KETONE Negative (Negative); LEUKO ESTERASE Negative (Negative); NITRITE Negative (Negative); SPECIFIC GRAVITY >= 1.030 (1.001-1.030); UROBILINOGEN 0.2 E.U./dl (0.0-1.0)
[2021-02-17 22:01] LABS: WBC 0-2 wbc/hpf (0-5)
[2021-02-17 22:02] LABS: BACTERIA TRACE
== END 2021-02-18 | disposition short-term general hospital (02) ==
LOC: ED 18:11
PROVIDERS: Physician Assistant
DX: B26.9 Mumps without complication (principal); Z88.6 Allergy status to analgesic agent; Z79.899 Other long term (current) drug therapy; Z79.82 Long term (current) use of aspirin

== ENCOUNTER 2021-03-09 12:39 | Emergency (ER) | payer MEDICARE ==
[~2021-03-09] VITALS: Ht 167.6 cm; Wt 79.8 kg
== END 2021-03-09 14:47 ==
LOC: ED 12:39
DX: Z45.2 Encounter for adjustment and management of vascular access device (principal); I50.9 Heart failure, unspecified; E11.9 Type 2 diabetes mellitus without complications; I11.0 Hypertensive heart disease with heart failure; E03.9 Hypothyroidism, unspecified; I48.91 Unspecified atrial fibrillation; M19.90 Unspecified osteoarthritis, unspecified site; Z88.8 Allergy status to other drugs, medicaments and biological substances; Z79.82 Long term (current) use of aspirin; Z79.899 Other long term (current) drug therapy; Z90.49 Acquired absence of other specified parts of digestive tract; Z98.890 Other specified postprocedural states

== ENCOUNTER 2021-04-14 20:17 | Inpatient (IN) | payer MEDICARE ==
[~2021-04-14] VITALS: Ht 167.6 cm; Wt 87.7 kg
[~2021-04-14 20:17] MED LIST changes: +ASPIRIN81 M1 PEG; -ASPIRIN81 M1 PO; +EXELON1 EACH T; +HYDROXYZINE PAM25 M1 PEG; -HYDROXYZINE PAM25 M1 PO; +LASIX40 MG PEG; -LASIX40 MG PO; +LEVOTHYROXINE175 MCG PEG; -LEVOTHYROXINE175 MCG PO; +OXYBUTYNIN5 MG PEG; +POTASSIUM CHLO10 MEQ PEG; +PREDNISONE5 MG PEG; +SERTRALINE HYDR25 MG PEG; +TYLENOL325 M2 PEG; -TYLENOL325 M2 PO; +VITAMIN D3125 MC1 PEG; -VITAMIN D3125 MC1 PO; +XARE20MG PEG
[2021-04-14 20:22] VITALS: BP 119/80
[2021-04-14 21:09] VITALS: BP 118/65
[2021-04-14 21:15] LABS: BASO # 0.1 10*3/uL (0.0-0.1); BASO % 0.6 % (0.0-1.0); EOS # 0.1 10*3/uL (0.0-0.4); EOS % 0.9 % (1.0-4.0); HEMATOCRIT 35.8 % (37.0-47.0); LYMPH # 1.3 10*3/uL (1.3-4.4); LYMPH % 10.3 % (27.0-41.0); MEAN CELL VOLUME 93.2 fl (81.0-99.0); MEAN CORPUSCULAR HGB 29.2 pg (27.0-31.0); MEAN CORPUSCULAR HGB CONC 31.3 g/dl (33.0-37.0); MEAN PLATELET VOLUME 9.6 fl (9.6-12.3); MONO # 1.1 10*3/uL (0.1-1.0); MONO % 9.2 % (3.0-9.0); NEUT # 9.7 10*3/uL (2.3-7.9); NEUT % 78.5 % (47.0-73.0); PLATELET COUNT AUTOMATED 289 10*3/uL (130-400); RED BLOOD COUNT 3.84 10*6/uL (4.10-5.10); RED CELL DISTRI WIDTH 16.3 % (0-14.5); WHITE BLOOD COUNT 12.3 10*3/uL (4.8-10.8)
[2021-04-14 21:26] LABS: ALKALINE PHOSPHATASE 164 U/L (45-117); BUN 15 mg/dl (7-24); CHLORIDE 96 mmol/L (98-107); CREATININE 0.46 mg/dL (0.55-1.02); SGOT/AST 14 IU/L (3-35); SGPT/ALT 17 U/L (12-78); SODIUM 132 mmol/L (136-145); TOTAL PROTEIN 7.8 gm/dL (6.4-8.2)
[2021-04-14 22:43] LABS: BILIRUBIN Negative (Negative); BLOOD 2+ (Negative); CLARITY Turbid (Clear); COLOR Yellow (Yellow); GLUCOSE Negative (Negative); KETONE Negative (Negative); LEUKO ESTERASE 3+ (Negative); NITRITE Positive (Negative); SPECIFIC GRAVITY 1.015 (1.001-1.030)
[2021-04-14 22:50] LABS: PH >= 9.0 (4.5-8.0)
[2021-04-14 23:08] LABS: BACTERIA 4+; RBC 41-50 rbc/hpf (0-2); WBC TNTC wbc/hpf (0-5)
[2021-04-14 23:23] VITALS: BP 115/74
[2021-04-15] MEDS ORDERED: PROAIR HFA8.5 GM INH (00:09)
[2021-04-15 01:00] VITALS: BP 108/52
[2021-04-15] MEDS ORDERED: CARBAMAZEPINE100 M1 PEG (01:23)
[2021-04-15] MEDS ORDERED: HYDROCODONE-AC1 EAC1 PEG (01:27)
[2021-04-15] MEDS ORDERED: LOPRESSOR25 MG PEG (01:29)
[2021-04-15] MEDS ORDERED: PREPARATION H1 EAC1 R (01:33)
[2021-04-15] MEDS ORDERED: ZOFRAN4 MG PEG (01:34)
[2021-04-15] MEDS ORDERED: PRILOSEC10 M2 PEG (01:35)
[2021-04-15 08:00] VITALS: BP 127/80
[2021-04-15 12:00] VITALS: BP 110/65
[2021-04-15 16:00] VITALS: BP 119/66
[2021-04-15 20:00] VITALS: BP 106/59
[2021-04-16] VITALS: BP 120/60
[2021-04-16 06:17] LABS: BUN 10 mg/dl (7-24); CHLORIDE 99 mmol/L (98-107); CREATININE 0.44 mg/dL (0.55-1.02); POTASSIUM 4.3 mmol/L (3.5-5.1); SODIUM 133 mmol/L (136-145)
[2021-04-16 06:19] LABS: BASO % 0.2 % (0.0-1.0); EOS % 0.1 % (1.0-4.0); HEMATOCRIT 36.8 % (37.0-47.0); LYMPH # 0.9 10*3/uL (1.3-4.4); LYMPH % 5.1 % (27.0-41.0); MEAN CORPUSCULAR HGB 29.5 pg (27.0-31.0); MEAN CORPUSCULAR HGB CONC 32.1 g/dl (33.0-37.0); MEAN PLATELET VOLUME 9.5 fl (9.6-12.3); MONO # 0.8 10*3/uL (0.1-1.0); MONO % 4.4 % (3.0-9.0); NEUT # 15.4 10*3/uL (2.3-7.9); NEUT % 89.6 % (47.0-73.0); PLATELET COUNT AUTOMATED 240 10*3/uL (130-400); RED CELL DISTRI WIDTH 16.1 % (0-14.5); WHITE BLOOD COUNT 17.2 10*3/uL (4.8-10.8)
[2021-04-16 08:00] VITALS: BP 114/71
[2021-04-16 12:00] VITALS: BP 94/44
[2021-04-16 16:00] VITALS: BP 108/64
[2021-04-16] MEDS ORDERED: SOLU-MEDRO40 MG/1 ML IV (16:05)
[2021-04-16] MEDS ORDERED: VANCOMYCIN1.25 GM/21 IV (16:05)
[2021-04-16] MEDS ORDERED: ZOSYN 4.54.5 GM/100 IV (16:05)
== END 2021-04-16 19:37 | disposition short-term general hospital (02) | DRG 871 ==
LOC: ED 20:17 → EDHOLD 04-15 00:01 → 5E 04-15 00:01
PROVIDERS: Internal Medicine; Student in an Organized Health Care Education/Training Program; ADMIT Internal Medicine; ATTEND Internal Medicine
DX: A41.9 Sepsis, unspecified organism (principal); G93.41 Metabolic encephalopathy; L03.211 Cellulitis of face; E87.1 Hypo-osmolality and hyponatremia; E44.0 Moderate protein-calorie malnutrition; I50.32 Chronic diastolic (congestive) heart failure; B37.49 Other urogenital candidiasis; Z20.822 Contact with and (suspected) exposure to COVID-19; K11.20 Sialoadenitis, unspecified; I48.91 Unspecified atrial fibrillation; R13.10 Dysphagia, unspecified; D64.9 Anemia, unspecified; R65.20 Severe sepsis without septic shock; I50.9 Heart failure, unspecified; E87.8 Other disorders of electrolyte and fluid balance, not elsewhere classified; I11.0 Hypertensive heart disease with heart failure; E11.65 Type 2 diabetes mellitus with hyperglycemia; I25.10 Atherosclerotic heart disease of native coronary artery without angina pectoris; Z66 Do not resuscitate; Z51.5 Encounter for palliative care; Z88.5 Allergy status to narcotic agent; Z88.8 Allergy status to other drugs, medicaments and biological substances; Z79.899 Other long term (current) drug therapy; Z79.1 Long term (current) use of non-steroidal anti-inflammatories (NSAID); Z79.51 Long term (current) use of inhaled steroids; Z79.82 Long term (current) use of aspirin; Z68.31 Body mass index [BMI] 31.0-31.9, adult